=== PATIENT | male | born 1945 | race Caucasian/White ===

== ENCOUNTER → 2017-07-14 08:40 | Outpatient (CLI) | payer OTHER, MEDICARE, SELFPAY ==
[2017-06-29 14:51] VITALS: BP 124/86; BMI 29.2
== END ==
PROVIDERS: Visit Provider Nurse Practitioner Family
DX: I25.810 Atherosclerosis of coronary artery bypass graft(s) without angina pectoris (principal); Q21.1 Atrial septal defect; R06.02 Shortness of breath; R53.83 Other fatigue; I10 Essential (primary) hypertension
CPT/HCPCS: 93306; A4216

== ENCOUNTER → 2018-04-10 05:59 | Outpatient (CLI) | payer OTHER, MEDICARE, SELFPAY ==
[2017-06-29 14:51] VITALS: BMI 29.2
[2018-04-10 07:46] LABS: AST(SGOT) 23 U/L (15-37); Alanine Aminotransfer ALT/SGPT 31 U/L (16-61); Albumin, Serum 3.4 g/dL (3.2-5.0); Alkaline Phosphatase 73 U/L (45-117); Bilirubin, Direct 0.16 mg/dL (0.00-0.30); Cholesterol 198 mg/dL (200); Globulin 3.6 g/dL (2.2-4.2); High Density Lipoprotein 48 mg/dL; Triglycerides 95 mg/dL; Very Low Density Lipoprotein 19 mg/dL (5-40)
== END ==
PROVIDERS: Referring Provider Physician Assistant Medical; Visit Provider Physician Assistant Medical
DX: I10 Essential (primary) hypertension (principal); Z95.5 Presence of coronary angioplasty implant and graft; E78.5 Hyperlipidemia, unspecified
CPT/HCPCS: 36415; 80061; 80076

== ENCOUNTER → 2019-01-30 08:22 | Outpatient (CLI) | payer OTHER, MEDICARE, SELFPAY ==
[2018-04-11 14:32] VITALS: BMI 29.3
[2019-01-30 10:22] LABS: Anion Gap 3 (5-15); BUN 20 mg/dL (7-18); BUN/Creat Ratio 15.5 RATIO (10-20); Calcium,Total 8.9 mg/dL (8.5-10.1); Chloride 108 mmol/L (98-107); Creatinine, Serum 1.29 mg/dL (0.70-1.30); EST Glomerular Filtration Rate 58 mL/min (>60); Est Glom Filt Rate - Afr Amer 70 mL/min (>60); Glucose 90 mg/dL (74-106); Potassium 4.3 mmol/L (3.5-5.1); Sodium Level 139 mmol/L (136-145)
== END ==
DX: N28.9 Disorder of kidney and ureter, unspecified (principal); I10 Essential (primary) hypertension
CPT/HCPCS: 36415; 80048

== ENCOUNTER → 2019-03-20 10:40 | Outpatient (CLI) | payer OTHER, MEDICARE, SELFPAY ==
[2019-03-06 08:29] VITALS: BMI 31.9
--- NOTE | 2019-03-20 10:41 | ECHOD_ITS ---
Reason For Study: DYSPNEA/SOB Procedure This was a 2D Doppler, Color Flow transthoracic echocardiogram. The study was technically difficult. Exam performed in department. Left Ventricle Normal LV size. Mild segmental systolic dysfunction (see wall motion). The estimated ejection fraction is 45 %. Posterior-Basal: Hypokinetic. Infero-Basal: Hypokinetic. Mid-Lateral : Hypokinetic. Mid-Posterior: Hypokinetic. Mid-Inferior: Hypokinetic. Inferior [place] : Hypokinetic. Right Ventricle Normal RV size. Normal systolic function. Atria Normal left atrium. Normal right atrium. No doppler evidence for ASD. Mitral Valve There is no mitral annular calcification. Normal mitral valve. Trivial mitral valve insufficiency. Tricuspid Valve Normal tricuspid valve. Trivial tricuspid valve insufficiency. Unable to estimate RV systolic pressure/pulmonary artery pressure due to technically difficult study. Aortic Valve Trisinus/trileaflet aortic valve. Mild focal aortic valve calcification. Pulmonic Valve The pulmonic valve is not well visualized. Trivial pulmonic valve insufficiency. Great Vessels Normal sized aortic root. Pericardium/Pleural No pericardial effusion. MMode/2D Measurements & Calculations LVIDd: 5.7 cm IVSd: 1.1 cm Ao root diam: 3.6 cm LVIDs: 4.5 cm LVPWd: 0.96 cm RVDd: 4.0 cm FS: 20.7 % LAV(MOD-bp): 35.7 ml LVAd ap4: 44.0 cm2 SV(MOD-sp4): 76.8 ml LAV(MOD-bp) Indexed: 17.5 ml/m2 EDV(MOD-sp4): 177.3 ml LAV(MOD-sp2): 45.2 ml EDV(sp4-el): 186.4 ml LAV(MOD-sp4): 22.3 ml LVAs ap4: 31.1 cm2 ESV(MOD-sp4): 100.5 ml ESV(sp4-el): 104.1 ml EF(MOD-sp4): 43.3 % EF(sp4-el): 44.2 % SV(sp4-el): 82.3 ml LA A4 area: 10.7 cm2 LA dimension(2D): 4.4 cm RA A4 area: 13.6 cm2 Time Measurements MV dec time: 0.22 sec Doppler Measurements & Calculations MV E max roger: 65.3 cm/sec Lat Peak E' Roger: 5.4 cm/sec Med Peak E' Roger: 5.4 cm/sec MV A max roger: 60.0 cm/sec E/E' lat: 12.1 E/E' med: 12.1 MV E/A: 1.1 Ao V2 max: 135.2 cm/sec LV V1 max: 95.6 cm/sec PA V2 max: 114.0 cm/sec Ao max P.3 mmHg LV V1 max P.7 mmHg Interpretation Summary The study was technically difficult. Mild segmental systolic dysfunction (see wall motion). The estimated ejection fraction is 45 %. Trivial mitral valve insufficiency. Trivial tricuspid valve insufficiency. Mild focal aortic valve calcification. Trivial pulmonic valve insufficiency. Unable to estimate RV systolic pressure/pulmonary artery pressure due to technically difficult study. Transmitral diastolic flow velocities suggest diastolic dysfunction (pseudonormal pattern). 2D echocardiographic images c/w an ASD closure device. Ordering Physician: Juanito Cope/Christian Alberts Referring Physician: Juanito Cope Performed By: Soni Atkinson, ALL
== END ==
PROVIDERS: Referring Provider Nurse Practitioner Family; Visit Provider Nurse Practitioner Family
DX: I25.810 Atherosclerosis of coronary artery bypass graft(s) without angina pectoris (principal); Q21.1 Atrial septal defect; R06.02 Shortness of breath; R07.9 Chest pain, unspecified; Z95.5 Presence of coronary angioplasty implant and graft
CPT/HCPCS: 93306

== ENCOUNTER 2019-03-26 08:39 | Day surgery (SDC) | payer OTHER, MEDICARE, SELFPAY ==
[2019-03-06 08:29] VITALS: BMI 31.9
--- NOTE | 2019-03-15 08:22 | RAD_ITS ---
STUDY: X-RAY CHEST REASON FOR EXAM: Male, 73 years old. Preop, on exertion TECHNIQUE: PA and lateral views of the chest. COMPARISON: Prior study of 04/07/2014 FINDINGS: The lungs are clear and expanded. There is no demonstrated pleural abnormality. Normal size heart. Status post anatomy changes are present. Normal mediastinum and saulo. Normal visualized pulmonary arteries. Normal visualized aortic arch and descending thoracic aorta. Normal visualized thoracic spine. Normal visualized ribs, clavicles, and shoulders. There is no demonstrated abnormality of the visualized soft tissue structures of the upper abdomen. RAD/Chest PA and Lateral IMPRESSION: Status post sternotomy. No acute cardiopulmonary disease process is seen. Chest findings are stable in the interval. Electronically Signed: Marshall Morel MD at 23:12 EDT , Service support ,
[2019-03-15 08:26] LABS: Absolute Lymphocyte Count 0.98 X10^3/uL (0.83-4.51); Absolute Neutrophil Count 5.9 X10^3/uL (2.0-7.7); Basophil# 0.02 X10^3/uL; Basophil% 0.3 % (0-1); Eosinophil# 0.09 X10^3/uL; Eosinophils% 1.1 % (0-5); Hematocrit 45.2 % (40-54); Hemoglobin 14.8 g/dL (13.0-16.5); Lymphocyte # 0.98 X10^3/ul (4.0); Lymphocyte % 12.3 % (19-41); Mean Corp Hgb Conc 32.7 g/dL (32-36); Mean Corpuscular Hgb 33.1 pg (27.0-32.0); Mean Corpuscular Volume 101.1 fL (80-94); Mean Platelet Vol. 10.1 fl (6.2-12.0); Monocyte# 0.95 X10^3/uL; Monocyte% 11.9 % (0-10); NRBC Flagged by Analyzer 0 % (0-5); Neutrophil # 5.88 X10^3/uL (2.7-7.7); Neutrophil % 73.5 % (47-70); Platelet Count 272 K/mm3 (150-450); RBC Distribution Width CV 11.6 % (11.6-14.6); RBC Distribution Width SD 43.1 fl (35.1-43.9); Red Blood Count 4.47 M/mm3 (4.6-6.2)
[2019-03-15 08:32] LABS: Prothrombin Time (Protime)PT. 13.3 SECONDS (11.7-14.9)
[2019-03-15 08:33] LABS: Partial Thromboplast Time 27.9 Seconds (24.1-36.2)
[2019-03-15 08:50] LABS: Anion Gap 5 (5-15); BUN 17 mg/dL (7-18); BUN/Creat Ratio 12.9 RATIO (10-20); Chloride 102 mmol/L (98-107); Creatinine, Serum 1.32 mg/dL (0.70-1.30); EST Glomerular Filtration Rate 56 mL/min (>60); Est Glom Filt Rate - Afr Amer 68 mL/min (>60); Glucose 96 mg/dL (74-106); Potassium 4.1 mmol/L (3.5-5.1); Sodium Level 138 mmol/L (136-145)
[2019-03-25 09:59] VITALS: BMI 31.9
[2019-03-26] VITALS (23 sets, daily range): BP systolic 112–165; BP diastolic 62–113; PULSE 50–69; RESP 12–19; TEMP 36.3–36.5; O2SAT 94–99; BMI 31.9
--- NOTE | 2019-03-26 10:03 | PCM.HP.BLA ---
Problem List (1) CAD in [place] artery Status: Chronic (2) History of coronary artery stent placement Status: Chronic (3) Aortocoronary bypass status Status: Chronic Comment: X 4 LIANG to LAD sequentially, 07/31/2003 (4) Hyperlipidemia Status: Chronic Qualifiers: (5) Essential (primary) hypertension Status: Chronic (6) Shortness of breath Status: Acute History and Physical Date of Admission: 03/26/19 [facility] [address] [place] [address] OFFICE VISIT Date of Service: 03/06/19 MR#: [id number] Acct: [id number] Name: NICOLLE TREADWELL Rep #: [id number] : 1945 Provider: GEOVANNA Cope Age/Sex: 73/M Location: [facility] Status: Signed HPI HPI History of Present Illness Details: NICOLLE TREADWELL, is a 73 M who presents to the office today for a cardiovascular outpatient follow-up. Patient has history of coronary artery disease status post CABG with LIANG to LAD sequentially, SVG to high lateral LCX branch, and RCA in 2003 and subsequent PCI with MARY to mid LCX, ostial OM, and left main in 2013, ASD status post closure in 2003, hypertension, and hyperlipidemia. Pt. denies chest, arm, jaw, or neck discomfort. He states prior to CABG he noted fatigue. His exercise tolerance is stable. He tries to swim 3 miles a week. Pt. denies symptoms of palpitations, lightheadedness, dizziness, near syncope, or syncopal episodes. Pt. denies edema or claudication issues. Pt. denies orthopnea, PND, fever, chills, blood in urine, blood in stool, or myalgia. He states SOB with walking, but denies SOB when swimming labs. He states his SOB occurs quickly when walking. This improves with rest. He states his activity level is decreasing. He states chest discomfort that radiates to bilateral upper back region over the last few months. He states he had one day recently it was more intense and considered ER evaluation. This improved in about 40 minutes. He continues with arthritis issues. Intake Vital Signs 03/06/19 Blood Pressure 130/80 H 03/06/19 Blood Pressure Location Lt brachial 03/06/19 Blood Pressure Position Sitting 10/16/19 Height 5 ft 8 in 03/06/19 Weight: 210 lb 03/06/19 Body Mass Index (BMI) 31.9 03/06/19 Blood Pressure 160/98 H 03/06/19 Blood Pressure Location Lt brachial 03/06/19 Blood Pressure Position Sitting 03/06/19 Respiratory Rate 18 03/06/19 Pulse Rate 71 03/06/19 Pulse Source Monitor 03/06/19 Pulse Ox 94 Intake Visit Reasons: discuss SOB [place] Required: No Is patient in pain?: No Allergies Penicillins [PCN] Allergy (Mild, Verified 03/06/19 08:29) Rash clopidogrel [From Plavix] Adverse Reaction (Intermediate, Verified 03/06/19 08:29) Burning sensation in arms and chest Medications nitroglycerin 0.4 mg sublingual tablet 0.4 mg SUBLINGUAL Q5M PRN 06/21/17 [History Confirmed 03/06/19] garlic 1,000 mg capsule 1,000 mg PO DAILY PRN cap 03/06/19 [History Confirmed 03/06/19] [facility] Medical History (Updated 03/06/19 @ 09:45 by GEOVANNA Bird) Essential (primary) hypertension (Acute) Atherosclerosis of coronary artery bypass graft of [place] heart without angina pectoris (Chronic) Cerebrovascular accident (Acute) Acute myocardial infarction (Acute) Hyperlipidemia (Chronic) Atrial septal defect (Chronic) Premature ventricular complex (Chronic) Surgical History (Updated 03/06/19 @ 09:45 by GEOVANNA Bird) History of coronary artery stent placement (Chronic) Aortocoronary bypass status (Acute) Social History (Updated 03/07/19 @ 07:19 by GEOVANNA Bird) Smoking Status: Former smoker ROS Const Const: Positive for fatigue; negative for weakness, body ache, fever(s) or chills ENT ENT: Negative for dizziness Cardio Chest Pain: Yes Palpitations: No Edema: None Muscle aches with walking: None Resp Respiratory: Positive for SOB with activity; negative for SOB at rest, SOB orthopnea\SOB lying down or paroxysmal nocturnal dyspnea GI GI: Negative nausea, vomiting blood/hematemesis, bright, red blood in stools or black,tarry stools : Negative for hematuria or frequent nighttime urination/ nocturia Musc Musc: Positive for muscle aches/ myalgia (back pain) Skin Skin: Negative non-healing lesions or rash Neuro Neuro: Negative for dizziness, lightheadedness, near syncope, syncope, orthostatic symptoms or weakness Endo Endo: Positive for fatigue Allergy Allergy/Immunology: Negative for rash Cardiology Exam Const Appearance: cooperative, healthy appearing, comfortable and no acute distress Nutritional Appearance: well nourished and obese Orientation: alert, awake and oriented x3 Head Head: normal to inspection Ears: hearing grossly normal bilaterally Nose: external nose normal Face and Sinus: face symmetric Mouth: oral mucosae normal Eyes General: appearance normal, both eyes and all related structures Eyelids: eyelids normal EOM: EOM intact bilaterally Neck Neck: normal visual inspection and no JVD Carotids: normal carotid upstroke Chest Chest inspection: normal inspection of the chest, symmetric chest movement and normal respiratory effort; negative cough Auscultation: Bilateral: Clear to Auscultation Cardio Rate: regular rate Rhythm: regular rhythm Heart sounds: S1 normal and S2 normal; negative rub, gallop or murmur GI GI: normal to inspection and obese Neuro General: alert, awake, oriented x3 and CN's II-XI intact bilaterally Skin Skin: no rashes or lesions noted Extremities Pulses: Normal: Right Posterior Tibial Pulse, Left Posterior Tibial Pulse, Right Radial Pulse, Left Radial Pulse Lower Extremity Edema: None: Bilateral Psych Psychological: normal affect Assessment & Plan 1. Atherosclerosis of coronary artery bypass graft of [place] heart without angina pectoris I25.810 Plan He underwent stress testing in August 2016 that was negative for ischemia. His last echocardiogram in June 2017 showed ejection fraction of 55%. Patient does express symptoms concerning for progressive coronary artery disease. He does have a extensive history that includes stenting and bypass surgery along with strong family history. He will undergo repeat echocardiogram and stress testing or heart catheterization for further evaluation. Based on results, further recommendation will be made. Patient states that he does not want to take any medications due to side effects and making him feel bad. He did receive extensive education regarding the importance of cardiac medications given his extensive cardiac history. He declines starting medications at this time. Exercise and diet modifications were extensively stressed in regards to his overall health. Orders Orders: Echo Complete 03/06/19 Nuclear Stress Test - Tread[facility] 03/06/19 2. Aortocoronary bypass status Z95.1 X 4 LIANG to LAD sequentially, 07/31/2003 Plan As noted above, he will proceed with stress testing to evaluate further. 3. History of coronary artery stent placement Z95.5 Plan He will continue current treatment plan as outlined above. Orders Orders: Echo Complete 03/06/19 Nuclear Stress Test - Tread[facility] 03/06/19 4. Shortness of breath R06.02 Plan He does acknowledge shortness of breath on exertion that has limited his overall activity. He does acknowledge reduced functional capacity. He will undergo a repeat echocardiogram to evaluate for changes. His previous one in June 2017 showed ejection fraction of 55% trivial valvular disease, and a negative bubble contrast study for right to left intra-atrial shunt. Based on results, further recommendation will be made. Orders Orders: Echo Complete 03/06/19 Nuclear Stress Test - Treadmil 03/06/19 5. Atrial septal defect Q21.1 Status post repair Plan This too will be reassessed during an upcoming echocardiogram. As noted above his echocardiogram in June 2017 was negative for right to left interatrial shunt via bubble contrast study. Orders Orders: Echo Complete 03/06/19 Nuclear Stress Test - Tread[facility] 03/06/19 6. Essential (primary) hypertension I10 Plan His blood pressure initially was elevated. Upon recheck it was much improved. It was recommended due to his cardiac history that he begin medications given that his blood pressure is well controlled. He declines at this time. 7. Mixed hyperlipidemia E78.2 Plan He is not on cholesterol-lowering medication. His last lipid panel March 2018 showed cholesterol: 198, HDL: 40, LDL: 131, and triglycerides: 95. He was asked to consider statin medication. He declined at this time. Plan Detail Other Orders Orders: Echo Complete 03/06/19 R07.9 Nuclear Stress Test - Tread[facility] 03/06/19 R07.9 Other Medications New: garlic 1,000 mg PO DAILY PRN Additional Comments Thank you for allowing us to participate in the patients plan of care, if you have any questions please do not hesitate to call. This note was generated using a voice recognition system and there may be incorrect words, spelling or punctuation that were not noted when reviewing the office note prior to saving. Coding Level of Care Code Off vis,est,level 4 Diagnoses Atherosclerosis of coronary artery bypass graft of [place] heart without angina pectoris I25.810 Aortocoronary bypass status Z95.1 History of coronary artery stent placement Z95.5 Shortness of breath R06.02 Atrial septal defect Q21.1 Essential (primary) hypertension I10 Mixed hyperlipidemia E78.2 ??Hyperlipidemia type: mixed hyperlipidemia Coding Level of Care Code Off vis,est,level 4 Diagnoses Atherosclerosis of coronary artery bypass graft of [place] heart without angina pectoris I25.810 Aortocoronary bypass status Z95.1 History of coronary artery stent placement Z95.5 Shortness of breath R06.02 Atrial septal defect Q21.1 Essential (primary) hypertension I10 Mixed hyperlipidemia E78.2 ??Hyperlipidemia type: mixed hyperlipidemia Supplemental Info Supplemental Information Echocardiogram from 07/14/2017: Interpretation summary Segmental dysfunction with preserved ejection fraction (see wall motion intensity. The estimate ejection fraction is 55%. Postoperative septal motion. Trivial mitral valve insufficiency. Trivial tricuspid valve insufficiency. Mild diffuse aortic valve thickening. Trivial aortic valve insufficiency. Trivial pulmonic valve insufficiency. 2D echocardiographic images consistent with an ASD closure device. Bubble contrast study negative for right to left intra-atrial shunt. Trans-mitral diastolic flow velocities suggest diastolic dysfunction (pseudo-normal pattern). Stress test from 09/06/2016: Impressions: Normal stress myocardial perfusion imaging. Scar inferolateral segments with small area of reversibility to lateral wall. LVEF is normal. Labs LDL Cholesterol 131 mg/dL (0-130) H 04/10/18 HDL Cholesterol 48 mg/dL (40-) 04/10/18 Triglycerides 95 mg/dL (-199) 04/10/18 VLDL Cholesterol 19 mg/dL (5-40) 04/10/18 03/07/19 0719 <Electronically signed by Juanito AUSTIN> Date Juanito AUSTIN Cosigner Signature: Date (if applicable) CC: I have re-examined the patient. There are no clinical changes since date of exam.
--- NOTE | 2019-03-26 12:00 | EKG12_ITS ---
Test Reason : POST STENT Blood Pressure : / mmHG Vent. Rate : 061 BPM Atrial Rate : 061 BPM P-R Int : 202 ms QRS Dur : 108 ms QT Int : 428 ms P-R-T Axes : 025 -28 079 degrees QTc Int : 430 ms Normal sinus rhythm Leftward axis Poor R wave progression Confirmed by MIRTA OKEEFE, CHRISTIAN ([id number]), editor continuity and script SUREKHA GUTIERREZ ([id number]) on 04/09/2019 2:05:35 PM Referred By: Christian Kirby Confirmed By:CHRISTIAN KIRBY MD
[2019-03-26 12:16] LABS: ACT Activated Clotting Time 213 sec (74-137)
--- NOTE | 2019-03-26 13:05 | CL.I_ITS ---
Patient Name: NICOLLE TREADWELL Study Date: 03/26/2019 Performing: Tennille Carrion MD Ht: 68 inches 173 cm : 1945 Wt: 209.7 lbs 95 kg Age: 73 Gender: male BSA: 2.09 PROCEDURE(S) PERFORMED [id number] W OR WO PTCA, SINGLE CORONARY ARTERY CLINICAL PROFILE AND CO-MORBIDITIES Indications: Suspected CAD Heart Failure: None Stress/Imaging Stress/Image Study Performed: No Angina Classification Anginal Classification w/in 2 Weeks: CCS III CAD Presentations: Other: shortness of breath / fatigue: angina pectoris equivalent CONCLUSIONS Successful PCI with Drug eluting stent and PTCA to the ISR of left main. RECOMMENDATIONS ASA Indefinijamal Laird for at least 12 months Follow up with Dr. Alberts DESCRIPTION OF PROCEDURE The patient arrived to the procedure lab. The risks and benefits of the procedure as well as a full d escription of our services here and current unavailability of surgical backup were fully explained to the patient and/or their significant other prior to the catheterization. The Timeout was completed, verifying the correct patient and procedure. The patient's procedural site was prepped and draped in the usual fashion. Local anesthetic was given subcutaneously to right groin region with Lidocaine 2% Using a modified Seldinger technique,arterial access was obtained via the right femoral artery, a 4Fr sheath was inserted Left Coronary Artery selective angiography was performed in multiple views using a 4 Fr. JL5 catheter. Right Coronary Artery selective angiography was then performed in multiple vie ws using a 4 Fr. 3DRC catheter. Saphenous Vein graft to the Circumflex selective angiography was perf ormed in multiple views using a 4 Fr. JR4 catheter. Saphenous Vein graft to the RCA selective angiography was performed in multiple views using a 4 Fr. JR4 catheter. Left internal mamma ry artery graft to the LAD selective angiography was performed in multiple views using a 4 Fr. JR4 ca theter. Saphenous Vein graft to the RCA selective angiography was performed in multiple views using a 4 Fr. RCB catheter. LV to AO pullback pressures were then recorded. Left internal mammary artery gra ft to the LAD selective angiography was performed in multiple views using a 4 Fr. IM catheter. Arterial sheath was exchanged for a 6 Fr Sheath. XB 3.5 Guide catheter was inserted and engaged i nto the LCA. BMw [place] Guide wire was advanced to the Circumflex. Emerge 3.0 x 12 Balloon cathete r was inserted. Balloon catheter was advanced across lesion in the Left Main mid PTCA balloon inflat ed at 10 atms for 15 secs. Elunir 3.5 x 15 Drug Eluting stent was inserted. Drug Eluting stent was ad vanced across the lesion in the Left Main mid Angiogram performed post stent deployment. The arter ial sheath was sutured in place and capped INTERVENTION INFORMATION LESION SITE: Left Main (Mid) Lesion Complexity: High/C, chronic total occlusion: No, lesion at bifurcation: Yes, thrombus present: No, lesion length: 12 mm, culprit lesion: Yes, Previously treated lesion: Yes, Timeframe of previous treatment: Time unknown, Previously treated with a stent: Yes Stent Type: with MARY, In-stent Thrombo sis: No, In-stent restenosis: Yes Pre Stenosis: 90 % Pre intervention KEREN flow: 3 PROCEDURE: Drug Eluting Stent with pre dilatation. Post Stenosis: 0 % Post intervention KEREN flow: 3 Lesion Devices: Cardinal 6 Fr XB3.5 100cm Guide Catheter Vázquez .014 [employer] [place] Straight 190cm Ronni Sci EMERGE MR 3.00x12 BALLOON Cardinal Elunir MARY RX 3.5x15 COMPLICATIONS No Complications PROCEDURE MEDICATIONS Versed 1 mg IV Oxygen: 2 L/min via nasal cannula Heparin 7000 unit(s) IV 03/26/2019 11:34:46 SUMMARY OF HEMODYNAMIC DATA Time AIR REST ECG 09:04:27 AO 156/86 (116) SA 10:26:14 LV 147/-6, 21 10:48:51 LV 145/-6, 14 10:48:57 LVp 165/-7, 17 10:51:08 AOp 156/71 (103) 10:51:13 Signed By Tennille Carrion MD On 03/26/2019 13:04:35 Tennille Carrion MD
[2019-03-26 13:45] LABS: ACT Activated Clotting Time 175 sec (74-137)
--- NOTE | 2019-03-26 14:13 | CRPHASE1_ITS ---
Patient Communication Former Patient:: Phase II PHII Cardiac Rehab Discussed with Patient:: Yes Guide to Cardiac Rehab Given to Patient:: Yes Cardiac Rehab Facility Choice List Given to Patient:: Yes Choice Program [facility] CR PHII:: Communication Given to CR, Refer to [facility] Beer Maker:: Clementine Carrion PCP:: DR VELIZ Refer Phase II Cardiac Rehab:: Yes Risk Factors/Lifestyle Smoking Status: Former smoker Hx Hypertension: Yes Hx Diabetes Mellitus Type 1: No Hx Diabetes Mellitus Type 2: No Hx Dyslipidemia: Yes Hx Obesity: Yes Height: 5 ft 8 in Weight:: 210 lb BMI: 31.9 Issues Affecting Care:: None - PT WAS A FORMER PHASE II PATIENT Medical/Surgical History SD:: Yes CAD:: Yes COPD:: No Asthma:: No Diabetes:: No Hypertension:: Yes Dyslipidemia:: Yes GERD:: Yes Discharge/Home/Social Eval Discharge Disposition: Home - FORMER PHASE II PT Cardiac Rehabilitation Info Cardiac Rehabilitation Program Information: Cardiac Rehabilitation is important for patients like you who are recovering from a heart problem. Cardiac rehabilitation programs are recognized as integral to the continued care of the patient with coronary heart disease. The cardiac rehabilitation program is designed to optimize a patient's physical, psychological, and social functioning. Health career consultant work in cardiac rehabilitation programs and assist you with getting the treatments you need to get stronger and healthier - like exercise, healthy eating habits, and medications. Cardiac rehabilitation has been show to help people with heart problems live longer and have better life enjoyment than people who do not go to cardiac rehabilitation. Please contact the Cardiac Rehabilitation Program at [facility] at in two weeks if you have not heard from them.
--- NOTE | 2019-03-26 14:16 | CRPH1.INSTRU ---
General Education CAD and cardiac anatomy and function:: Not instructed Explanation of diagnoses and procedures:: Not instructed Sign/Symptoms of NE:: Not instructed Antiplatelet therapy: Patient communicates acknowledgment, Needs reinforcement Emergency procedures and activation of EMS: Not instructed Compliance of all prescribed medications: Patient communicates acknowledgment, Needs reinforcement - FORMER PHASE II PT Smoking Nicotine/Smoking Response Code:: Not instructed Dyslipidemia Dyslipidemia Response Code:: Not instructed Overweight/Obesity Patient Overweight/Obesity Risk Factors Are:: Obesity - > or = 30 Overweight/Obesity:: Not instructed Hypertension Hypertension:: Not instructed Heart Disease Heart Disease Response Code:: Not instructed Diabetes Diabetes:: Not instructed Metabolic Syndrome Metabolic Syndrome Response Code:: Not instructed Sedentary Sedentary Response Code:: Not instructed Stress Stress Response Code:: Not instructed - FORMER PHASE II PT
[2019-03-26 14:36] LABS: ACT Activated Clotting Time 158 sec (74-137)
[2019-03-26] MEDS: 0.9% Saline Lock 10 ML Syringe IV (14:36)
--- NOTE | 2019-03-26 15:39 | CL.D_ITS ---
Patient Name: NICOLLE TREADWELL Study Date: 03/26/2019 Performing: Christian Alberts MD Ht: 68.11 inches 173 cm : 1945 Wt: 209.44 lbs 95 kg Age: 73 Gender: male BSA: 2.09 PROCEDURE(S) PERFORMED [id number]/COR/CABG AE95-RSP W OR WO PTCA, SINGLE CORONARY ARTERY CLINICAL PROFILE AND INDICATIONS Indications: Suspected CAD Heart Failure: None Stress/Imaging Stress/Image Study Performed: No Angina Classification Anginal Classification w/in 2 Weeks: CCS III CAD Presentations: Other: shortness of breath / fatigue: angina pectoris equivalent CONCLUSIONS Elevated Left Ventricular End Diastolic Pressure [place] Multivessel CAD LIANG to LAD: patent SVG to OM1: occluded (chronic) SVG to RCA: patent Left to Left and Right to Left Collateral Flow RECOMMENDATIONS Risk factor modification Medical therapy Referred for immediate PCI DESCRIPTION OF PROCEDURE The patient arrived to the procedure lab. The risks and benefits of the procedure as well as a full d escription of our services here and current unavailability of surgical backup were fully explained to the patient and/or their significant other prior to the catheterization. The Timeout was completed, verifying the correct patient and procedure. The patient's procedural site was prepped and draped in the usual fashion. Local anesthetic was given subcutaneously to right groin region with Lidocaine 2%. Using a modified Seldinger technique, arterial access was obtained via the right femoral artery, a 4 Fr sheath was inserted Left Coronary Artery selective angiography was performed in multiple views us ing a 4 Fr. JL5 catheter. Right Coronary Artery selective angiography was then performed in multiple views using a 4 Fr. 3DRC catheter. Saphenous Vein graft to the Circumflex selective angiography was p erformed in multiple views using a 4 Fr. JR4 catheter. Saphenous Vein graft to the RCA selective angiography was performed in multiple views using a 4 Fr. JR4 catheter. Left internal mamma ry artery graft to the LAD selective angiography was performed in multiple views using a 4 Fr. JR4 ca theter. Saphenous Vein graft to the RCA selective angiography was performed in multiple views using a 4 Fr. RCB catheter. LV to AO pullback pressures were then recorded. Left internal mammary artery gra ft to the LAD selective angiography was performed in multiple views using a 4 Fr. IM catheter.The art erial sheath was sutured in place and capped CORONARY ANGIOGRAPHY DOMINANCE: Right Dominant LEFT HEART ASSESSMENT Left Ventricular Ejection Fraction: Not assessed Elevated Left Ventricular End Diastolic Pressure LVEDP: 14 mmHg LEFT MAIN: Previously placed stent is patent with distal eccentric 85 % instent restenosis LEFT ANTERIOR DESCENDING ARTERY: DISTAL LAD: Mild luminal irregularities CIRCUMFLEX ARTERY: MID CIRC: 25 % Stenosis OM 1: Mid - 25 % Stenosis RIGHT CORONARY ARTERY: PROX RCA: is occluded RT PDA: Proximal - 50 % Stenosis GRAFTS: LIANG graft to the Mid LAD is patent Saphenous Vein graft to the 1st OM is totally occluded Saphenous Vein graft to the RCA is patent COLLATERAL FLOW: Collateral flow from Left to Left Collateral flow from Right to Left COMPLICATIONS No Complications PROCEDURE MEDICATIONS Versed 1 mg IV Oxygen: 2 L/min via nasal cannula Heparin 7000 unit(s) IV 03/26/2019 11:34:46 SUMMARY OF HEMODYNAMIC DATA Time AIR REST ECG 09:04:27 AO 156/86 (116) SA 10:26:14 LV 147/-6, 21 10:48:51 LV 145/-6, 14 10:48:57 LVp 165/-7, 17 10:51:08 AOp 156/71 (103) 10:51:13 Signed By Christian Alberts MD On 03/26/2019 3:38:17 PM Christian Alberts MD
--- NOTE | 2019-03-26 16:12 | CHAPLAIN ---
Type of Pastoral Visit _x__ Initial Visit ___ Follow-up Visit ___ On-call Visit ___ General Patient Visit ___ Spiritual Assessment ___ Family Conference ___ Bereavement ___ Rapid Response ___ Code Blue ___ Other (describe below) Pastoral Care Referral From _x__ Patient ___ Family ___ Nurse ___ Physician ___ Firearms Instructor ___ Numerical Control Machine Operator ___ Other (describe below) Sacrament/Intervention _x__ Active listening ___ Anointing ___ Judaism ___ Bereavement ___ Communion _x__ Shefali exploration ___ _x__ Life review _x__ Prayer ___ Reconciliation ___ Sacrament of Sick _x__ Supportive presence ___ Wedding ___ Other (describe below) Pastoral Comments
--- NOTE | 2019-03-26 19:10 | NURSING ---
Pt's groin inspected, pt denies pain,numb/ting, and SOB. Gripper socks placed on, pt assisted to sitting at bedside;no c/o dizziness. Pt assisted to stand and pivot into chair. Groin site remains intact s/p transfer. monitor wires placed out of way, call light within reach; pt denies any further needs at this time.
[2019-03-26] MEDS: TICAGRELOR 90 MG TABLET PO (21:22)
--- NOTE | 2019-03-26 21:29 | NURSING ---
Pt ambulated to bathroom and back to bed w/out difficulty;slight wheezing w/exertion, but denies SOB. Gait slow and steady.
[2019-03-27] VITALS (17 sets, daily range): BP systolic 100–174; BP diastolic 47–94; PULSE 54–74; RESP 13–22; TEMP 36.6–36.7; O2SAT 94–99
[2019-03-27 03:55] LABS: Hematocrit 41.7 % (40-54); Hemoglobin 13.9 g/dL (13.0-16.5); Mean Corp Hgb Conc 33.3 g/dL (32-36); Mean Corpuscular Hgb 33.3 pg (27.0-32.0); Mean Corpuscular Volume 99.8 fL (80-94); Mean Platelet Vol. 9.9 fl (6.2-12.0); Platelet Count 219 K/mm3 (150-450); RBC Distribution Width CV 11.8 % (11.6-14.6); RBC Distribution Width SD 43.1 fl (35.1-43.9); Red Blood Count 4.18 M/mm3 (4.6-6.2)
[2019-03-27 04:15] LABS: AST(SGOT) 23 U/L (15-37); Alanine Aminotransfer ALT/SGPT 21 U/L (16-61); Albumin, Serum 3.2 g/dL (3.2-5.0); Alkaline Phosphatase 62 U/L (45-117); Anion Gap 8 (5-15); BUN 16 mg/dL (7-18); BUN/Creat Ratio 14.7 RATIO (10-20); Calcium,Total 8.4 mg/dL (8.5-10.1); Chloride 109 mmol/L (98-107); Creatinine, Serum 1.09 mg/dL (0.70-1.30); EST Glomerular Filtration Rate 70 mL/min (>60); Est Glom Filt Rate - Afr Amer 85 mL/min (>60); Estimated Creatinine Clearance 57.52 ml/min; Globulin 3.2 g/dL (2.2-4.2); Glucose 105 mg/dL (74-106); Potassium 4.1 mmol/L (3.5-5.1); Protein, Total 6.4 g/dL (6.4-8.2); Sodium Level 141 mmol/L (136-145)
[2019-03-27] MEDS: TICAGRELOR 90 MG TABLET PO (08:44)
[2019-03-27] MEDS: Aspirin E.C. 81 MG Tablet PO (08:44)
--- NOTE | 2019-03-27 10:00 | EKG12_ITS ---
Test Reason : AM EKG Blood Pressure : / mmHG Vent. Rate : 057 BPM Atrial Rate : 057 BPM P-R Int : 196 ms QRS Dur : 102 ms QT Int : 438 ms P-R-T Axes : 012 -32 088 degrees QTc Int : 426 ms Sinus bradycardia with Premature atrial complexes Left axis deviation Poor R wave progression Abnormal ECG Confirmed by MIRTA OKEEFE, CHRISTIAN ([id number]), acquisitions editor SUREKHA GUTIERREZ ([id number] on 04/09/2019 2:04:40 PM Referred By: Christian Kirby Confirmed By:CHRISTIAN KIRBY MD
--- NOTE | 2019-03-27 10:36 | DCINST_ITS ---
<Juanito Cope - Last Filed: 03/27/19 10:36> Discharge Diet: Low fat/ Low Cholesterol Discharge Activity: Return to Normal Activity May shower in (days): 1 - No tub baths for 5 days May resume sexual activity in: 1-2 weeks Lifting Restrictions: Do not lift anything greater than 10 pounds for 3 days Call your doctor if your incision/area has: Continuous Slow Oozing, Sudden Increased Bleeding, Increased Pain/ Swelling, Increased Redness, Foul Smelling Discharge, Swelling at the incision site Call your doctor if you observe: Fever of 101 or Higher, Shortness of breath, Chest pain Remove Dressing in (days):: 1 Cleanse incision/area with: Soap & Water Additional Instructions: You continue with aspirin and Brilinta therapy. If anyone asked you to stop this, please call the [facility]. Ideally given your history of coronary artery disease that you should also be on such medication as beta-remberto, DILLON inhibitor/ARB, and statin medication. This will continually be assessed on an outpatient basis and please consider taking such medications. Please continue to monitor heart rate and blood pressure and depending on your blood pressure results, you may benefit will require blood pressure medication. If any questions or concerns please call the [facility]. Allergies/Adverse Reactions: Allergies Penicillins [PCN] Allergy (Mild, Verified 03/06/19 08:29) Rash clopidogrel [From Plavix] Adverse Reaction (Intermediate, Verified 03/06/19 08:29) Burning sensation in arms and chest Medications to take at Discharge nitroglycerin 0.4 mg sublingual tablet 0.4 mg SUBLINGUAL Q5M PRN 06/21/17 garlic 1,000 mg capsule 1,000 mg PO DAILY cap 03/06/19 aspirin 81 mg tablet,delayed release 81 mg PO QDAY #60 tab 03/11/19 ticagrelor 90 mg tablet 90 mg PO BID #60 tab 03/11/19 Ubidecarenone [Co Q-10] 30 mg PO DAILY 03/26/19 Orders to be completed after discharge: Phase II, Outpatient Cardiac Rehab Location: None Selected Primary Care Physician: TRISTIN PARIKH [Other] Test Results: Test results from this visit will be discussed in further detail at your follow- up appointment, if applicable. Please Follow Up With: Dr. Alberts When: 05/01/2019 at 2:30 PM Proposed Discharge Date: 03/27/19 Cardiac Rehabilitation Info Cardiac Rehabilitation Program Information: Cardiac Rehabilitation is important for patients like you who are recovering from a heart problem. Cardiac rehabilitation programs are recognized as integral to the cont inued care of the patient with coronary heart disease. The cardiac rehabilitation program is designed to optimize a patient's physical, psychological, and social functioning. Health healthcare financial analyst work in cardiac rehabilitation programs and assist you with getting the treatments you need to get stronger and healthier - like exercise, healthy eating habits, and medications. Cardiac rehabilitation has been show to help people with heart problems live longer and have better life enjoyment than people who do not go to cardiac rehabilitation. Please contact the Cardiac Rehabilitation Program at [facility] at in two weeks if you have not heard from them. <Christian Alberts - Last Filed: 03/27/19 13:40> Test Results: Test results from this visit will be discussed in further detail at your follow- up appointment, if applicable. Cardiac Rehabilitation Info Cardiac Rehabilitation Program Information: Cardiac Rehabilitation is important for patients like you who are recovering from a heart problem. Cardiac rehabilitation programs are recognized as integral to the continued care of the patient with coronary heart disease. The cardiac rehabilitation program is designed to optimize a patient's physical, psychological, and social functioning. Health healthcare financial analyst work in cardiac rehabilitation programs and assist you with getting the treatments you need to get stronger and healthier - like exercise, healthy eating habits, and medications. Cardiac rehabilitation has been show to help people with heart problems live longer and have better life enjoyment than people who do not go to cardiac rehabilitation. Please contact the Cardiac Rehabilitation Program at [facility] at in two weeks if you have not heard from them.
--- NOTE | 2019-03-27 13:40 | DS.PCM_ITS ---
Discharge Date and Diagnosis Date of Admission: 03/26/19 Date of Discharge: 03/27/19 - Primary Discharge Diagnosis CAD status post PCI - Secondary Discharge Diagnosis Chronic Problems (Last Updated 04/03/18 @ 10:41 by Heather Herrera) CAD in [place] artery (Chronic) History of coronary artery stent placement (Chronic ~03/26/19) PCI/MARY of the [facility] [place] [facility] 03/26/19 Essential (primary) hypertension (Chronic) Atherosclerosis of coronary artery bypass graft of [place] heart without angina pectoris (Chronic) Aortocoronary bypass status (Chronic) X 4 LIANG to LAD sequentially, 07/31/2003 Hyperlipidemia (Chronic) Atrial septal defect (Chronic) Status post repair Premature ventricular complex (Chronic) Hospital Course and Treatment Operations: None Procedures: Cardiac catheterization, - - Cardiac percutaneous intervention Summary of Care Provided: The patient is a 73 year old with a history of CAD, CABG, PCI, status post ASD closure/PFO closure (surgical and percutaneously), who presented for concerning shortness of breath/dyspnea and fatigue for repeat evaluation in the cardiac catheterization laboratory. A cardiac catheterization was performed which demonstrated progression of underlying [place] vessel disease that required repeat PCI. The patient was monitored in the ICU overnight. He appeared to be symptomatically hemodynamically stable. It was felt he could be released home for continued outpatient follow-up and outpatient cardiac rehabilitation. The patient was counseled on appropriate medical management. He was agreeable t o taking his aspirin and antiplatelet therapy. He declined taking any other prescription medications despite a lengthy conversation with him by multiple caregivers. He was agreeable for continued outpatient follow-up. He agreed to continued outpatient cardiac rehabilitation. [] Subjective: Patient is awake and alert and in no acute distress. - Physical Exam Vitals/I&O's: Vital Signs Temp Pulse Resp BP Pulse Ox 98.1 F 63 14 162/89 H 99 03/27/19 12:00 03/27/19 12:00 03/27/19 12:00 03/27/19 12:00 03/27/19 12:00 Oxygen Delivery Method Room Air Weight: 209 lb 10.554 oz Body Mass Index (BMI) 31.9 Intake and Output for Last 24 Hours 03/25/19 03/26/19 03/27/19 23:59 23:59 23:59 Intake Total 400 / 600 920 / 920 Output Total 950 / 1350 950 / 950 Balance -550 / -750 -30 / -30 General: Alert, Oriented x3, Cooperative HEENT: Atraumatic, PERRLA Oral: Moist Mucosa Neck: Supple, No JVD Lungs: Clear to auscultation Cardiovascular: Regular rate, Normal S1, Normal S2 Abdomen: Bowel Sounds Present, Soft, Non Tender Extremities: No clubbing, No cyanosis, No edema Psych/Mental Status: Normal Affect Comment: Right femoral artery: Pulse 2+/4+: No obvious bruit: No obvious hematoma Laboratory Results 03/26/19 13:30: Activated Clotting Time 175 H 03/26/19 14:25: Activated Clotting Time 158 H 03/27/19 03:45: WBC 8.0, RBC 4.18 L, Hgb 13.9, Hct 41.7, MCV 99.8 H, MCH 33.3 H, MCHC 33.3, RDW Std Deviation 43.1, RDW Coeff of Neena 11.8, Plt Count 219, MPV 9.9 03/27/19 03:45: Sodium 141, Potassium 4.1, Chloride 109 H, Carbon Dioxide 24.0, Anion Gap 8, BUN 16, Creatinine 1.09, Estim Creat Clear Calc 57.52, Est GFR (MDRD) Af Amer 85, Est GFR (MDRD) Non-Af 70, BUN/Creatinine Ratio 14.7, Glucose 105, Calcium 8.4 L, Total Bilirubin 0.40, AST 23, ALT 21, Alkaline Phosphatase 62, Total Protein 6.4, Albumin 3.2, Globulin 3.2, Albumin/Globulin Ratio 1.0 Current Medications Aspirin (Ecotrin) 81 mg PO DAILY@0800 [facility] Last Admin: 03/27/19 08:44 Dose: 81 mg Documented by: Atropine Sulfate () 0.5 mg IV UD PRN PRN Reason: HR <50 bpm Heparin Sodium (Beef Lung) (Heparin 500 Unit/5 Ml (100/Ml)) 500 unit IV UD PRN PRN Reason: HEPARIN FLUSH Sodium Chloride () 500 ml IV BOLUS PRN PRN Reason: VASO-VAGAL PROTOCOL Sodium Chloride () 10 - 40 ml IV UD PRN PRN Reason: SALINE FLUSH Last Admin: 03/26/19 14:36 Dose: 10 ml Documented by: Ticagrelor (Brilinta) 90 mg PO BID [facility] Last Admin: 03/27/19 08:44 Dose: 90 mg Documented by: Discharge Diet: Low fat/ Low Cholesterol Discharge Activity: Return to Normal Activity May shower in (days): 1 - No tub baths for 5 days May resume sexual activity in: 1-2 weeks Call your doctor if your incision/area has: Continuous Slow Oozing, Sudden Increased Bleeding, Increased Pain/ Swelling, Increased Redness, Foul Smelling Discharge, Swelling at the incision site Call your doctor if you observe: Fever of 101 or Higher, Shortness of breath, Chest pain Remove Dressing in (days):: 1 Cleanse incision/area with: Soap & Water Home Medications: Medications to take at Discharge nitroglycerin 0.4 mg sublingual tablet 0.4 mg SUBLINGUAL Q5M PRN 06/21/17 garlic 1,000 mg capsule 1,000 mg PO DAILY cap 03/06/19 aspirin 81 mg tablet,delayed release 81 mg PO QDAY #60 tab 03/11/19 ticagrelor 90 mg tablet 90 mg PO BID #60 tab 03/11/19 Ubidecarenone [Co Q-10] 30 mg PO DAILY 03/26/19 Other Amb Orders: Phase II, Outpatient Cardiac Rehab Location: None Selected Primary Care Physician: TRISTIN PARIKH [Other] Please Follow Up With: Dr. Alberts When: 05/01/2019 at 2:30 PM Additional Instructions: You continue with aspirin and Brilinta therapy. If anyone asked you to stop this, please call the [facility]. Ideally given your history of coronary artery disease that you should also be on such medication as beta-remberto, DILLON inhibitor/ARB, and statin medication. This will continually be assessed on an outpatient basis and please consider t aking such medications. Please continue to monitor heart rate and blood pressure and depending on your blood pressure results, you may benefit will require blood pressure medication. If any questions or concerns please call the [facility]. Disposition: Home Minutes spent on discharge:: 45 Patient Condition:: Stable Medical Necessity - Tobacco Use Smoking Status: Former smoker Meaningful Use Info Meaningful Use Diagnoses (Choose all that apply): None applicable
== END 2019-03-27 14:35 | disposition home or self-care (01) ==
LOC: CLSP 08:39 → ICU 03-27 10:58
PROVIDERS: Nurse Practitioner Family; Specialist; Referring Provider Internal Medicine Cardiovascular Disease; Visit Provider Internal Medicine Cardiovascular Disease
DX: I25.810 Atherosclerosis of coronary artery bypass graft(s) without angina pectoris (principal); I10 Essential (primary) hypertension; Q21.1 Atrial septal defect; E78.2 Mixed hyperlipidemia; E66.9 Obesity, unspecified; Z68.31 Body mass index [BMI] 31.0-31.9, adult; I49.3 Ventricular premature depolarization; M19.90 Unspecified osteoarthritis, unspecified site; I25.2 Old myocardial infarction; Z86.73 Personal history of transient ischemic attack (TIA), and cerebral infarction without residual deficits; Z79.82 Long term (current) use of aspirin; Z79.899 Other long term (current) drug therapy; Z87.891 Personal history of nicotine dependence
CPT/HCPCS: 36415; 71046; 80048; 80053; 85025; 85027; 85347; 85610; 85730; 92928; 93005; 93455; 99152; 99153; J7040; Q9967; A4216; C1725; C1769; C1874; C1887; C1894; C9600

== ENCOUNTER 2019-03-31 00:10 | Inpatient (IN) | payer OTHER, MEDICARE, SELFPAY ==
[2019-03-26 12:49] VITALS: BMI 31.9
[2019-03-31] VITALS (43 sets, daily range): BP systolic 96–157; BP diastolic 56–98; PULSE 60–102; RESP 9–22; TEMP 36.6–37.1; O2SAT 93–98; BMI 32.5
--- NOTE | 2019-03-31 00:21 | HP.PCM_ITS ---
Problem List (1) STEMI (ST elevation myocardial infarction) Status: Acute (2) CAD in [place] artery Status: Chronic (3) History of coronary artery stent placement Status: Chronic Comment: PCI/MARY of the ISR of [place] 03/26/19 (4) Essential (primary) hypertension Status: Chronic (5) Atherosclerosis of coronary artery bypass graft of [place] heart without angina pectoris Status: Chronic (6) Aortocoronary bypass status Status: Chronic Comment: X 4 LIANG to LAD sequentially, 07/31/2003 (7) Abnormal electrocardiogram Status: Acute (8) Acute myocardial infarction Status: Acute Comment: Subendocardial infarction (9) Hyperlipidemia Status: Chronic Qualifiers: (10) Atrial septal defect Status: Chronic Comment: Status post repair (11) Premature ventricular complex Status: Chronic History of Present Illness Date of Admission: 03/30/19 Chief Complaint: CHEST PAIN The patient is a 73 year old with a history of former smoker; CAD S/P CABG and stents, status post ASD closure/PFO closure (surgical and percutaneously) who recently had another coronary stent placed in his left main on 03/26/2019 presenting with chest pain. His chest pain [place] a [place] but watching the football in his van. The paramedics at the football [place] who were close to him took him to the emergency department. The paramedics gave him 2 nitroglycerin tablets but the nitroglycerin tablets did not help with his pain. Majority of his pain was actually in his back. The pain also radiated to his bilateral arm. The pain w as severe and was getting progressively worse. There was no aggravating or ameliorating factors to the pain. Patient went to [facility] where it was identified the patient was having ST elevation [place]. At [facility] patient received normal saline bolus of 500 mils; he received 4000 units of heparin and he was started on nitroglycerin drip. The case was discussed with our steam plant records clerk, Dr. Barragan and patient was accepted to our Hospital ([facility]). As soon as patient arrived to the emergency department he was wheeled to the cardiac Lab by the paramedics. Patient had an immediate PCI. Per discussion with Dr. Barragan, interventionalist who did the procedure, the stent in the left main placed on 03-26-19 was occluded and it was opened up. A second stent was placed in the left main. Further patient had a stent placed in his circumflex. Also the obtuse marginal artery was ballooned up. Patient was admitted to the intensive care with a plan to keep sheath in overnight; and receive Integrilin drip for [address] Barragan heparin will be stopped and patient will receive full dose aspirin up of 324 mg in a.m. Past Medical History Past Medical History (Chronic Problems): Chronic Problems (Last Updated 04/03/18 @ 10:41 by Heather Herrera) CAD in [place] artery (Chronic) History of coronary artery stent placement (Chronic ~03/26/19) PCI/MARY of the ISR of Lt Main 03/26/19 Essential (primary) hypertension (Chronic) Atherosclerosis of coronary artery bypass graft of [place] heart without angina pectoris (Chronic) Aortocoronary bypass status (Chronic) X 4 LIANG to LAD sequentially, 07/31/2003 Hyperlipidemia (Chronic) Atrial septal defect (Chronic) Status post repair Premature ventricular complex (Chronic) Medical History: Medical History (Last Reviewed 03/31/19 @ 01:06 by Delbert Ng MD) Essential (primary) hypertension (Chronic) I10 Atherosclerosis of coronary artery bypass graft of [place] heart without angina pectoris (Chronic) I25.810 Cerebrovascular accident (Inactive) I63.9 Acute myocardial infarction (Acute) I21.9 Subendocardial infarction Hyperlipidemia (Chronic) E78.5 Atrial septal defect (Chronic) Q21.1 Status post repair Premature ventricular complex (Chronic) I49.3 Allergies Penicillins [PCN] Allergy (Mild, Verified 03/06/19 08:29) Rash clopidogrel [From Plavix] Adverse Reaction (Intermediate, Verified 03/06/19 08:29) Burning sensation in arms and chest Home Medications: Ambulatory Orders Medication Instructions Recorded nitroglycerin 0.4 mg sublingual 0.4 mg SUBLINGUAL Q5M PRN 06/21/17 tablet garlic 1,000 mg capsule 1,000 mg PO DAILY cap 03/06/19 aspirin 81 mg tablet,delayed 81 mg PO QDAY #60 tab 03/11/19 release ticagrelor 90 mg tablet 90 mg PO BID #60 tab 03/11/19 Ubidecarenone [Co Q-10] 30 mg PO DAILY 03/26/19 Surgical History: Surgical History (Last Updated 03/26/19 @ 13:25 by Eunice Mazariegos) History of coronary artery stent placement (Chronic) Onset Date: ~03/26/19 Z95.5 PCI/MARY of the ISR of [place] Main 03/26/19 Aortocoronary bypass status (Chronic) Z95.1 X 4 LIANG to LAD sequentially, 07/31/2003 Surgical History: coronary bypass surgery Psychiatric History: No pertinent psych hx Lives: Spouse/ Significant Other Smoking Status: Former smoker - *Family History Maternal History Items: Heart Disease - His mother had a heart attack at age 51. Paternal History Items: - - Denies any paternal medical history. Review of Systems Constitutional: Denies: Chills, Fever, Weight Change HEENT: Denies: Head Aches, Sinus Congestion, Sinus Drainage Cardiovascular: Reports: Chest Pain. Denies: Palpitations Respiratory: Denies: Cough, Shortness of breath at rest, Sputum production Gastrointestinal: Denies: Abdominal Pain, Nausea, Vomiting Genitourinary: Denies: Dysuria Musculoskeletal: Reports: Arm Pain, Back Pain. Denies: Joint Pain, Joint Tenderness Skin: Denies: Rash, Wounds Neurological: Denies: Numbness, Tingling, Focal weakness Psychiatric: Denies: Anxiety, Depression, Homicidal Ideations, Suicidal Ideations Hematologic/ Lymphatic: Denies: Easy Bruising, Easy Bleeding VTE Information - Inpt Only VTE Present on Admission: No VTE Mechan Device Prophylaxis: None VTE Pharm Prophylaxis ordered?: No Reason prophylaxis not ordered:: Treatment Not Indicated - Received therapeutic dose of heparin within the last 12 hours and now on Integrilin drip. Patient Problems: Active and Suspected Problems (Last Updated 04/03/18 @ 10:41 by Heather Herrera) STEMI (ST elevation myocardial infarction) (Acute) - Physical Exam Vitals/I&O's: Body Mass Index (BMI) 31.9 General: Alert, Oriented x3, Cooperative HEENT: Atraumatic, PERRLA, EOMI, Normocephalic Neck: Supple, No JVD, Negative Carotid Bruits Lungs: Clear to auscultation, Normal air movement Cardiovascular: Regular rate, No murmurs Abdomen: Bowel Sounds Present, Soft, Non Tender Extremities: No edema, Capillary Refill Less than 3 Seconds, - - Sheath in right groin Skin: No rashes, No breakdown Musculoskeletal: No Tenderness to Palpation of Joints or Extremities Neurological: Cranial nerves II-XII grossly intact Psych/Mental Status: Normal Affect, Appropriate Assessment/Plan All Active Problems (Last Updated 04/03/18 @ 10:41 by Heather Herrera) STEMI (ST elevation myocardial infarction) (Acute) Abnormal electrocardiogram (Acute) Acute myocardial infarction (Acute) Family history of early CAD (Resolved) The patient is a 73 year old with a history of former tobacco abuse CAD S/P CABG and stents, status post ASD closure/PFO closure (surgical and percutaneously) who recently had another coronary stent placed in his left main on 03/26/2019 s/p PCI (this admission, night of 03/30/2019) after STEMI. STEMI Place on a critical care bed at intensive care unit EKG Waldemar Beckwith reviewed showed ST elevation in aVR and in V1; with reciprocal ST depressions. STEMI alert was called prior to arrival to the emergency department. Received a full dose aspirin at [facility]. 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 Status post PCI with opening of blocked left main stent and with another stent placed in left main artery. Stent was placed in the circumflex; and the obtuse marginal was ballooned up. Ventricular ejection fraction was about 45%. Per discussion with Dr. Barragan, interventionalist, patient will be on Integrilin for 12 hours. Placed on full dose daily aspirin by steam plant records clerk. . Review of previous notes shows that patient had not accepted cardioprotective drugs because of concern for side effects. Placed on Cozaar; Coreg and high intensity statin by steam plant records clerk Hypertension Blood pressure is stable in regard to his age. Placed on Cozaar and Coreg by steam plant records clerk Chronic Systolic heart failure Per discussion with steam plant records clerk patient left ventricular ejection fraction was about 45%; likely chronic. Placed on heart failure medications as above. DVT prophylaxis Patient has received therapeutic dose of heparin within the last 12 hours and is on Integrilin drip. Code Visit Inpatient E&M: 68079 Init Hosp L3
[2019-03-31 00:25] LABS: ACT Activated Clotting Time 158 sec (74-137)
[2019-03-31 00:25] LABS: ACT Activated Clotting Time 219 sec (74-137)
--- NOTE | 2019-03-31 00:52 | CL.I_ITS ---
Patient Name: NICOLLE TREADWELL Study Date: 03/30/2019 Performing: Ji Barragan MD Ht: 68 inches 172.72 cm : 1945 Wt: 189.99 lbs 86.18 kg Age: 73 Gender: male BSA: 2 PROCEDURE(S) PERFORMED [id number], MARY AND/OR PTCA, ARTERY OR GRAFT, SINGLE VESSEL [id number] W OR WO PTCA, SINGLE CORONARY ARTERY [id number], CORONARY OR GRAFT, INITIAL VESSEL [id number]/LV [id number], EACH ADD'L CORONARY ART, SAME MAJOR CLINICAL PROFILE AND CO-MORBIDITIES Patient presents with STEMI for emergent cardiac cath.. Pt recently underwent PCI/MARY to LM on 019. Indications: ACS <= 24 hrs, Stable Known CAD, Other Heart Failure: NYHA Class: 1, Newly Diagnosed: No, Heart Failure Type: Systolic Stress/Imaging Stress/Image Study Performed: No Angina Classification Anginal Classification w/in 2 Weeks: CCS III CAD Presentations: Unstable angina. STEMI. Symptom onset Date/Time: 03/30/2019 around 930pm Comorbidities/Risk Factors: Hypertension Dyslipidemia Prior CHF Prior PCI Prior CABG CONCLUSIONS Successful PTCA/MARY to Left main for in stent thrombosis, fasciliated by reloading with brilinta, iv integrilin, thrombectomy, IVUS of LM, followed by a 3.5 x 12 Promus Synergy stent from mid LM to osti al LM, post dilated with a 3.5 x 8 NC Ballloon. All segments re-IVUSed at end of procedure which dem ostrated appropriate and complete stent apposition, no residual thombosis, and no edge dissections. Successful PTCA/MARY mid LCX with a 2.25 x 12 Promus Synergy to remove possible outflow obstruction th at may have contributed to in stent thrombosis. Successful emergent PCI with PTCA to the mid OM#1 with a 2.0 x 12 Emerge balloon, unable to pass 2.5 x 20 stent despite ary wire; 85%-->30%, no dissection. Previously placed LM stent appeared to be adequately apposed but possibley underdeployed. Cannot exc lude possible proximal edge dissection, so additional LM stent placed. RECOMMENDATIONS Highly recommend quitting all tobacco products Follow up with primary sheet metal production worker Risk factor modification ASA Indefinitley Plavix for at least 12 months Routine post interventional care Refer for Outpatient Cardiac Rehab Manual sheath removal per protocol Follow up with Dr. Alberts Manual sheath removal in am 03/31/19. Eitan for at least 12 months DESCRIPTION OF PROCEDURE The patient arrived to the procedure lab. The risks and benefits of the procedure as well as a full d escription of our services here and current unavailability of surgical backup were fully explained to the patient and/or their significant other prior to the catheterization. The Timeout was completed, verifying the correct patient and procedure. The patient's procedural site was prepped and draped in the usual fashion. Local anesthetic was given subcutaneously to right groin region with Lidocaine 2%. Using a modified Seldinger technique, arterial access was obtained via the right femoral artery, a 6 Fr sheath was inserted.. Left Coronary Artery selective angiography was performed in multiple views u sing a 6 Fr.. Left Ventriculography was performed in MCNEAL projection using a 4 Fr. Pigtail catheter. L V to AO pullback pressures were then recorded runthrough Guide wire was advanced to the Circumflex. [place] AP inserted Pass # 1 [place] AP Remov ed ebu 3.75 Guide catheter was inserted and engaged into the LCA. emerge 2.00 x 12 Balloon catheter w as advanced across lesion in the l main mid PTCA balloon inflated at 8 atms for 10 secs. Angiogram p erformed post balloon dilatation. IVUS pullback recording was performed on the l main for pre- interv ention / lesion assessment. nc emerge 3.50 x 12 Balloon catheter was advanced across lesion in the l main mid nc PTCA balloon inflated at 14 atms for 12 secs. nc PTCA balloon inflated at 14 atms for 7 secs. nc PTCA balloon inflated at 14 atms for 9 secs. Angiogram performed post balloon dilatation. Gu aaron wire was repositioned to the 1st OM emerge 2 x 12 Balloon catheter was advanced across lesion in the first obtuse marginal, mid. PTCA balloon inflated at 12 atms for 7 secs. PTCA balloon inflated at 12 atms for 9 secs. Angiogram performed post balloon dilatation. emerge 2.0 x 12 Balloon catheter was advanced across lesion in the circumflex, mid. PTCA balloon inflated at 8 atms for 8 sec s. PTCA balloon inflated at 12 atms for 8 secs. PTCA balloon inflated at 12 atms for 6 secs. Angiogra m performed post balloon dilatation. synergy 2.25 x 12 Drug Eluting stent was advanced across the les ion in the circumflex, mid. emerge 2.00 x 12 Balloon catheter was advanced across lesion in the first obtuse marginal, mid. PTCA balloon inflated at 12 atms for 18 secs. synergy 2.5 x [address] ent was advanced across the lesion in the first obtuse marginal, mid. IVUS pullback recording was per formed on the l main for post peripheral intervention assessment. runthrough Guide wire was inserted as a ary wire emerege 2.00 x 12 Balloon catheter was advanced across lesion in the first obtuse mar ginal, mid on original om wire PTCA balloon inflated at 6 atms for 9 secs. PTCA balloon inflated at 1 2 atms for 15 secs. Angiogram performed post balloon dilatation. synergy 3.5 x 12 Drug Eluting stent was advanced across the lesion in the l main mid. 3.5 x 12 nc emerge Balloon catheter was inserted post stent. IVUS pullback recording was performed on the 1 for post PCI assessment. Th e arterial sheath was sutured in place and capped INTERVENTION INFORMATION LESION SITE: Left Main (Mid) Lesion Complexity: High/C, lesion at bifurcation: No, thrombus present: Yes, lesion length: 12 mm, cu lprit lesion: Yes Pre Stenosis: 100 % Pre intervention KEREN flow: 0 PROCEDURE: Balloon Angioplasty, Drug Eluting Stent with pre and post dilatation, Thrombectomy, IVUS for pre PCI assessment and post stent placement Post Stenosis: 0 % Post intervention KEREN flow: 3 Lesion Devices: Ronni Sci EMERGE MR 2.00x12 BALLOON IGT Devices ( Formerly [place]) Coronary IVUS Catheter Ronni Sci NC EMERGE MR 3.50x12 BALLOON Terumo .014 Runthrough Extra Floppy 180cm straight Ronni Sci Synergy MR MARY 3.50x12 LESION SITE: 1st OM (Mid) Lesion Complexity: Non-High/Non-C, lesion at bifurcation: No, lesion length: 20 mm, culprit lesion: N o, In-stent restenosis: Yes Pre Stenosis: 85 % Pre intervention KEREN flow: 3 PROCEDURE: Balloon Angioplasty Post Stenosis: 30 % Post intervention KEREN flow: 3 Lesion Devices: Ronni Sci EMERGE MR 2.00x12 BALLOON LESION SITE: Circumflex (Mid) Lesion Complexity: Non-High/Non-C, lesion at bifurcation: No, thrombus present: No, lesion length: 12 mm, culprit lesion: No Pre Stenosis: 75 % Pre intervention KEREN flow: 3 PROCEDURE: Drug Eluting Stent with pre dilatation. 0 % Post intervention KEREN flow: 3 Lesion Devices: Ronni Sci EMERGE MR 2.00x12 BALLOON Ronni Sci Synergy MR MARY 2.25x12 COMPLICATIONS No Complications PROCEDURE MEDICATIONS Oxygen: 2 L/min via nasal cannula Heparin 6000 unit(s) IV 03/30/2019 23:09:25 SUMMARY OF HEMODYNAMIC DATA Time AIR REST ECG 22:59:03 AO 104/64 (82) SA 00:01:27 LV 123/-15, 8 00:05:18 LV 126/-15, 9 00:05:25 LVp 127/-20, 5 00:05:33 AOp 118/60 (82) 00:05:38 Signed By Ji Barragan MD On 03/31/2019 12:50:38 AM Ji Barragan MD
[2019-03-31] MEDS: 0.9% Normal Saline 1,000 ML 150 ML IV (00:56)
--- NOTE | 2019-03-31 00:56 | ECHOCS_ITS ---
Reason For Study: S/P IL Procedure This was a 2D Doppler, Color Flow transthoracic echocardiogram. Exam performed portable in ICU/CCU. Left Ventricle Moderately dilated left ventricle. The estimated ejection fraction is 35-40 %. Stage 2 diastolic dysfunction. Septal motion consistent with IVCD. Infero-Basal: Severely Hypokinetic. Basal inferoseptal: Severely Hypokinetic. Mid-Anterior : Hypokinetic. Lateral-Basal: Severely Hypokinetic. Right Ventricle Moderately dilated right ventricle. Atria Normal left atrium. Normal right atrium. Normal atrial septum. Mitral Valve The mitral valve is structurally normal. No prolapse or stenosis seen. Trivial mitral valve insufficiency. Tricuspid Valve Normal tricuspid valve. Unable to estimate RV systolic pressure due to insufficient tricuspid regurgitant envelope. Aortic Valve Trisinus/trileaflet aortic valve. Mild diffuse aortic valve thickening. There is no aortic stenosis. Pulmonic Valve The pulmonic valve is not well visualized. Great Vessels Normal aortic root. Normal arch. Normal inferior vena cava. Inferior vena cava collapse with sniff. Pericardium/Pleural No pericardial effusion. Medication Diluted definity 4ml given slow IV push to enhance endocardial definition. MMode/2D Measurements & Calculations LVIDd: 5.8 cm IVSd: 1.1 cm Ao root diam: 3.6 cm LVIDs: 4.6 cm LVPWd: 1.0 cm RVDd: 4.2 cm FS: 20.2 % LAV(MOD-bp): 36.6 ml LVAd ap4: 46.4 cm2 SV(MOD-sp4): 85.8 ml LAV(MOD-bp) Indexed: 17.6 ml/m2 EDV(MOD-sp4): 180.3 ml LAV(MOD-sp2): 34.0 ml EDV(sp4-el): 192.2 ml LAV(MOD-sp4): 35.6 ml LVAs ap4: 29.9 cm2 ESV(MOD-sp4): 94.5 ml ESV(sp4-el): 100.8 ml EF(MOD-sp4): 47.6 % EF(sp4-el): 47.5 % SV(sp4-el): 91.3 ml LA A4 area: 14.1 cm2 LA dimension(2D): 4.4 cm RA A4 area: 13.3 cm2 Time Measurements MV dec time: 0.22 sec Doppler Measurements & Calculations MV E max roger: 72.9 cm/sec Lat Peak E' Roger: 8.1 cm/sec Med Peak E' Roger: 6.3 cm/sec MV A max roger: 58.0 cm/sec E/E' lat: 9.0 E/E' med: 11.6 MV E/A: 1.3 Ao V2 max: 143.6 cm/sec LV V1 max: 142.9 cm/sec PA V2 max: 91.8 cm/sec Ao max P.3 mmHg LV V1 max P.2 mmHg Interpretation Summary Moderately dilated left ventricle. The estimated ejection fraction is 35-40 %. Stage 2 diastolic dysfunction. Moderately dilated right ventricle. Trivial mitral valve insufficiency. Unable to estimate RV systolic pressure due to insufficient tricuspid regurgitant envelope. Compared to echo report dated 03/20/2019, LV function appears slightly worse from 45% to 35% with new infero/lateral hypokinesis. The study was technically difficult. Contrast injection was performed. Ordering Physician: Yung^Ji^^^ Referring Physician: Ji Barragan Performed By: Soni Atkinson RDCS
--- NOTE | 2019-03-31 00:56 | EKG12_ITS ---
Test Reason : AM EKG Blood Pressure : / mmHG Vent. Rate : 059 BPM Atrial Rate : 059 BPM P-R Int : 190 ms QRS Dur : 112 ms QT Int : 458 ms P-R-T Axes : 004 -42 082 degrees QTc Int : 453 ms Sinus bradycardia Left axis deviation Nonspecific ST abnormality Abnormal ECG Confirmed by MIRTA OKEEFE, CARLEY ([id number]), editorial assistant JOE ROMO ([id number]) on 04/10/2019 2:23:20 PM Referred By: Ji Barragan Confirmed By:CARLEY KIRBY MD
[2019-03-31 06:11] LABS: Hemoglobin 12.4 g/dL (13.0-16.5); Mean Corp Hgb Conc 33.5 g/dL (32-36); Mean Corpuscular Hgb 33.7 pg (27.0-32.0); Mean Corpuscular Volume 100.5 fL (80-94); Mean Platelet Vol. 10.4 fl (6.2-12.0); Platelet Count 224 K/mm3 (150-450); RBC Distribution Width CV 11.9 % (11.6-14.6); RBC Distribution Width SD 43.6 fl (35.1-43.9); Red Blood Count 3.68 M/mm3 (4.6-6.2); White Blood Count 9.6 K/mm3 (4.4-11.0)
[2019-03-31 06:32] LABS: AST(SGOT) 235 U/L (15-37); Alanine Aminotransfer ALT/SGPT 36 U/L (16-61); Alkaline Phosphatase 59 U/L (45-117); Anion Gap 6 (5-15); BUN 16 mg/dL (7-18); BUN/Creat Ratio 16.2 RATIO (10-20); Chloride 110 mmol/L (98-107); Creatinine, Serum 0.99 mg/dL (0.70-1.30); EST Glomerular Filtration Rate 79 mL/min (>60); Est Glom Filt Rate - Afr Amer 95 mL/min (>60); Estimated Creatinine Clearance 63.33 ml/min; Glucose 109 mg/dL (74-106); Potassium 4.1 mmol/L (3.5-5.1); Sodium Level 139 mmol/L (136-145)
[2019-03-31 07:11] LABS: ACT Activated Clotting Time 125 sec (74-137)
--- NOTE | 2019-03-31 08:15 | PN_ITS ---
Patient Problems: Active and Suspected Problems (Last Reviewed 03/31/19 @ 01:06 by Delbert Ng MD) STEMI (ST elevation myocardial infarction) (Acute) Vitals/I&O's: Vital Signs Temp Pulse Resp BP Pulse Ox 98.4 F 62 12 131/64 H 97 03/31/19 04:00 03/31/19 06:00 03/31/19 06:00 03/31/19 06:00 03/31/19 07:07 Oxygen Delivery Method Room Air Weight: 213 lb 13.574 oz Body Mass Index (BMI) 32.5 Intake and Output for Last 24 Hours 03/29/19 03/30/19 03/31/19 23:59 23:59 23:59 Intake Total 1107.47 / 1107.47 Output Total 1200 / 1200 Balance -92.53 / -92.53 Laboratory Results 03/30/19 23:06: Activated Clotting Time 158 H 03/31/19 00:05: Activated Clotting Time 219 H 03/31/19 04:25: WBC 9.6, RBC 3.68 L, Hgb 12.4 L, Hct 37.0 L, MCV 100.5 H, MCH 33.7 H, MCHC 33.5, RDW Std Deviation 43.6, RDW Coeff of Neena 11.9, Plt Count 224, MPV 10.4 03/31/19 04:25: Sodium 139, Potassium 4.1, Chloride 110 H, Carbon Dioxide 23.0, Anion Gap 6, BUN 16, Creatinine 0.99, Estim Creat Clear Calc 63.33, Est GFR (MDRD) Af Amer 95, Est GFR (MDRD) Non-Af 79, BUN/Creatinine Ratio 16.2, Glucose 109 H, Calcium 8.0 L, Total Bilirubin 0.60, AST 235 H, ALT 36, Alkaline Phosphatase 59, Total Protein 6.0 L, Albumin 3.0 L, Globulin 3.0, Albumin/Globulin Ratio 1.0 03/31/19 07:02: Activated Clotting Time 125 03/31/19 07:40: Troponin I Pending Current Medications Acetaminophen (Tylenol) 650 mg PO Q6H PRN PRN PRN Reason: Pain Score 1-3/10 Aspirin (Ecotrin) 325 mg PO DAILY@0800 [facility] Atorvastatin Calcium (Lipitor) 80 mg PO QHS BRE Atropine Sulfate () 0.5 mg IV UD PRN PRN Reason: HR <50 bpm Carvedilol (Coreg) 3.125 mg PO BID [facility] Dextrose (D50w Syringe) 0 gm IV X1 PRN; Protocol PRN Reason: Hypoglycemia Glucagon () 1 mg IM .X1 PRN PRN Reason: Hypoglycemia Heparin Sodium (Beef Lung) (Heparin 500 Unit/5 Ml (100/Ml)) 500 unit IV UD PRN PRN Reason: HEPARIN FLUSH Eptifibatide (Integrilin) 75 mg in 100 mls @ 15.52 mls/hr CONT INF .Q6H27M BRE Last Infusion: 03/31/19 06:26 Dose: 2 mcg/kg/min, 15.5 mls/hr Documented by: Sodium Chloride () 1,000 mls @ 1 mls/hr IV .Q48H PRN PRN Reason: Saline Flush Labetalol HCl (Trandate) 5 mg IV X1 PRN PRN Reason: SBP > 160 when pulling sheath Lorazepam (Ativan) 1 mg PO Q6H PRN PRN PRN Reason: BACK SPASMS/ANXIETY Losartan Potassium (Cozaar) 12.5 mg PO DAILY [facility] Metoclopramide HCl (Reglan) 5 mg IV Q6H PRN PRN PRN Reason: NAUSEA/VOMITING Nitroglycerin (Nitrostat) 0.4 mg SUBLINGUAL Q5M PRN PRN Reason: CARDIAC/CHEST PAIN Ondansetron HCl (Zofran) 4 mg IV Q8H PRN PRN PRN Reason: NAUSEA/VOMITING Sodium Chloride () 500 ml IV BOLUS PRN PRN Reason: VASO-VAGAL PROTOCOL Sodium Chloride () 10 - 40 ml IV UD PRN PRN Reason: SALINE FLUSH Ticagrelor (Brilinta) 90 mg PO BID [facility] STROKE Vital Signs/Narrative: Vital Signs Pulse Resp BP Pulse Ox 03/31/19 07:07 97 03/31/19 06:00 62 12 131/64 H 97 03/31/19 05:00 75 17 147/70 H 96 Medical Necessity - Tobacco Use Smoking Status: Former smoker Assessment/Plan All Active Problems (Last Reviewed 03/31/19 @ 01:06 by Delbert Ng MD) STEMI (ST elevation myocardial infarction) (Acute) Abnormal electrocardiogram (Acute) Acute myocardial infarction (Acute) Family history of early CAD (Resolved)
--- NOTE | 2019-03-31 08:36 | CCHN_ITS ---
Hospitalist Note Patient was admitted early interventionist for chest pain, EKG showing ST elevation in aVR and V1 with reciprocal ST depression from [facility] ER. STEMI alert was called and patient went to Adding Machine Operator from [facility].. Patient had PCI of left main on 03/27/2019. Emergent cath was done and patient underwent PCI/MARY of in-stent stenosis of left main, mid circumflex and balloon angioplasty of first OM. Sheath from the right groin pulled out the morning. Patient does not complain of chest pain, shortness of breath while in ICU after the procedure. equipment monitor phototypesetting shows PVCs and run of 7 beats of NSVT. Vitals are is stable. Normal sinus rhythm with PVCs. Hemodynamically stable blood pressure 131/64. Right groin: Mild bruise over cardiac access site. No hematoma. Lungs: Air entry bilateral equal. No crepitation/rhonchi. Heart: Sinus rhythm, S1-S2 irregular with PVCs Extremities: No edema. 1. STEMI: Currently patient in ICU. EF about 45%. On IV Integrilin for 12 hours, completion time 11:30 AM today. On aspirin, Brilinta, Cozaar, Coreg Intensity statin 2. Hypertension: Blood pressure is controlled. 3. Chronic systolic heart failure: EF about 45%, chronic ischemic heart disease ischemic cardiomyopathy. DVT prophylaxis: SCD. Consider Lovenox 40 mg after 24 hours hours of pulling out sheath
--- NOTE | 2019-03-31 09:16 | PN.CARD_ITS ---
Subjectve: Patient seen and evaluated. Appears to be doing better at this time. Status post sheath removal. Objective: Vital Signs Temp Pulse Resp BP Pulse Ox 98.4 F 69 12 131/64 H 97 03/31/19 04:00 03/31/19 08:00 03/31/19 06:00 03/31/19 06:00 03/31/19 07:07 Oxygen Delivery Method Room Air Weight: 213 lb 13.574 oz Body Mass Index (BMI) 32.5 Intake and Output for Last 24 Hours 03/29/19 03/30/19 03/31/19 23:59 23:59 23:59 Intake Total 1107.47 / 1107.47 Output Total 1200 / 1200 Balance -92.53 / -92.53 General: Awake, Alert, Oriented x 3 HEENT: PERRL, EOMI, Sclera Non Icteric Neck: Supple, Good ROM, No Lymph Node Enlargement Lungs: Clear to auscultation Cardiovascular: Regular Rhythm, Normal S1, Normal S2, No Murmurs, No Rubs, No Gallops Vascular: No Carotid Bruits, Normal Femoral Pulses, Normal Radial Pulses, Normal Dorsalis Pedal Pulse, Normal Posterior Tibial Pulses Abdomen: Bowel Sounds Present, Soft, Non Tender, No HSM, No Organomegaly Extremities: No Cyanosis, No Clubbing, No edema Musculoskeletal: No Erythema Skin: No Rashes Lymphatic: No Lymph Node Enlargement Neurological: No Focal Motor or Sensory Deficit Psych/Mental Status: Appropriate 03/31/19 04:25: WBC 9.6, RBC 3.68 L, Hgb 12.4 L, Hct 37.0 L, MCV 100.5 H, MCH 33 .7 H, MCHC 33.5, Plt Count 224, MPV 10.4 03/31/19 04:25: Sodium 139, Potassium 4.1, Chloride 110 H, Carbon Dioxide 23.0, Anion Gap 6, BUN 16, Creatinine 0.99, Est GFR (MDRD) Af Amer 95, Est GFR (MDRD) Non-Af 79, BUN/Creatinine Ratio 16.2, Glucose 109 H, Calcium 8.0 L, Total Bilirubin 0.60 03/31/19 07:40: Troponin I 106.000 H* Rhythm: EKG: ECHO: Stress Test: Cardiac Cath: PCI: CT Surgery: Holter monitor: EPS: PPM: CXR: Chest CT Scan: Medical Necessity - Tobacco Use Smoking Status: Former smoker Assessment/Plan 1. Acute ST elevation myocardial infarction * Patient is doing well status post emergent angioplasty and stenting of the left main coronary artery following elective stenting on 03/27/2019. Patient also had drug-eluting stent placed to the proximal circumflex artery. Overall patient appears to be doing quite well this morning. * Will obtain echocardiogram in a.m. to assess left ventricular function * Continue aggressive risk factor modification * We will continue Brilinta and aspirin * Continue high intensity statin * Continue ARB and beta-remberto. * 2. Status post ASD closure with Amplatzer occluder device * Patient appears to be stable at this particular time no changes will be made * An echocardiogram will be performed in a.m. * 3. Hypertension * Controlled continue current medical therapy * 4. Lipidemia * Continue high intensity statin. * * Thank you for allowing me to participate in the care of your patient. Please don't hesitate to call if any issues arise
[2019-03-31] MEDS: 0.9% Saline Lock 10 ML Syringe IV ×2 (09:21→11:30)
[2019-03-31] MEDS: Aspirin E.C. 325 MG Tablet PO (09:22)
[2019-03-31] MEDS: Losartan Potassium 25 MG Tablet 12.5 MG PO (09:23)
[2019-03-31] MEDS: TICAGRELOR 90 MG TABLET PO ×2 (09:25→21:55)
[2019-03-31] MEDS: Carvedilol 3.125 MG TABLET PO ×2 (09:25→21:55)
--- NOTE | 2019-03-31 10:00 | EKG12_ITS ---
Test Reason : AM EKG Blood Pressure : / mmHG Vent. Rate : 065 BPM Atrial Rate : 065 BPM P-R Int : 188 ms QRS Dur : 106 ms QT Int : 464 ms P-R-T Axes : 043 -38 088 degrees QTc Int : 482 ms Sinus rhythm with Premature atrial complexes Left axis deviation Nonspecific ST and T wave abnormality Prolonged QT Abnormal ECG Confirmed by MIRTA OKEEFE, CARLEY ([id number]), film editor JOE ROMO ([id number]) on 04/10/2019 2:24:22 PM Referred By: Ji Barragan Confirmed By:CARLEY KIRBY MD
[2019-03-31] MEDS: Atorvastatin Calcium 80 MG Tablet PO (21:55)
[2019-04-01] VITALS (27 sets, daily range): BP systolic 97–138; BP diastolic 41–99; PULSE 54–76; RESP 11–21; TEMP 36.7–37.1; O2SAT 94–98
[2019-04-01 04:05] LABS: Hemoglobin 13.1 g/dL (13.0-16.5); Mean Corp Hgb Conc 33.6 g/dL (32-36); Mean Corpuscular Hgb 33.8 pg (27.0-32.0); Mean Corpuscular Volume 100.5 fL (80-94); Mean Platelet Vol. 10.1 fl (6.2-12.0); Platelet Count 211 K/mm3 (150-450); RBC Distribution Width CV 11.9 % (11.6-14.6); RBC Distribution Width SD 43.7 fl (35.1-43.9); Red Blood Count 3.88 M/mm3 (4.6-6.2); White Blood Count 7.7 K/mm3 (4.4-11.0)
[2019-04-01 04:15] LABS: Anion Gap 8 (5-15); BUN 16 mg/dL (7-18); BUN/Creat Ratio 14.7 RATIO (10-20); Calcium,Total 8.2 mg/dL (8.5-10.1); Chloride 110 mmol/L (98-107); Creatinine, Serum 1.09 mg/dL (0.70-1.30); EST Glomerular Filtration Rate 70 mL/min (>60); Est Glom Filt Rate - Afr Amer 85 mL/min (>60); Estimated Creatinine Clearance 57.52 ml/min; Glucose 104 mg/dL (74-106); Potassium 4.1 mmol/L (3.5-5.1); Sodium Level 141 mmol/L (136-145)
--- NOTE | 2019-04-01 06:39 | CRPHASE1 ---
Patient Communication Former Patient:: Phase I - Patient previously seen by CR staff on 03/26/2019, Phase II - Patient has previously participated in outpatient CR program. PHII Cardiac Rehab Discussed with Patient:: Yes Guide to Cardiac Rehab Given to Patient:: Yes Cardiac Rehab Facility Choice List Given to Patient:: Yes Choice Program [facility] CR PHII:: Communication Given to CR, Refer to [facility] Farm Labor Contractor:: Ji Barragan Refer Phase II Cardiac Rehab:: Yes Sessions:: 36 sessions - 3 days/wk, 12 weeks Cardiac Rehabilitation Info Cardiac Rehabilitation Program Information: Cardiac Rehabilitation is important for patients like you who are recovering from a heart problem. Cardiac rehabilitation programs are recognized as integral to the continued care of the patient with coronary heart disease. The cardiac rehabilitation program is designed to optimize a patient's physical, psychological, and social functioning. Health rn progressive care work in cardiac rehabilitation programs and assist you with getting the treatments you need to get stronger and healthier - like exercise, healthy eating habits, and medications. Cardiac rehabilitation has been show to help people with heart problems live longer and have better life enjoyment than people who do not go to cardiac rehabilitation. Please contact the Cardiac Rehabilitation Program at [facility] at in two weeks if you have not heard from them.
--- NOTE | 2019-04-01 06:40 | CRPH1.INSTRU ---
General Education CAD and cardiac anatomy and function:: Patient communicates acknowledgment Explanation of diagnoses and procedures:: Patient communicates acknowledgment Sign/Symptoms of MS:: Patient communicates acknowledgment Antiplatelet therapy: Patient communicates acknowledgment Proper use of NTG-SL: Patient communicates acknowledgment Emergency procedures and activation of EMS: Patient communicates acknowledgment Compliance of all prescribed medications: Patient communicates acknowledgment - Patient was previously educated about heart disease by CR staff on 03/26/2019 and provided a Guide top Your Cardiac Rehab booklet. Patient has alos had formalized patient education in our outpatient CR program.
[2019-04-01] MEDS: Carvedilol 3.125 MG TABLET PO (09:26)
[2019-04-01] MEDS: Losartan Potassium 25 MG Tablet 12.5 MG PO (09:26)
[2019-04-01] MEDS: Aspirin E.C. 325 MG Tablet PO (09:26)
[2019-04-01] MEDS: TICAGRELOR 90 MG TABLET PO ×2 (09:26→21:30)
--- NOTE | 2019-04-01 09:47 | PN.CARD_ITS ---
Subjectve: The patient is recovering in the ICU. He states he is feeling better overall. He denies ongoing chest or back discomfort at this time. He is breathing is without concern to him at the moment. He denies any obvious palpitations or rapid rate sensations. Objective: Vital Signs Temp Pulse Resp BP Pulse Ox 98.5 F 70 17 114/58 L 97 04/01/19 09:00 04/01/19 09:00 04/01/19 09:00 04/01/19 09:00 04/01/19 09:00 Oxygen Delivery Method Room Air Weight: 209 lb 14.081 oz Body Mass Index (BMI) 32.5 Intake and Output for Last 24 Hours 03/30/19 03/31/19 04/01/19 23:59 23:59 23:59 Intake Total 2146.00 / 2926.00 1020 / 1020 Output Total 2225 / 2375 450 / 450 Balance -79.00 / 551.00 570 / 570 General: Awake, Alert, Oriented x 3, Cooperative, No Acute Distress HEENT: Atraumatic, Normocephalic, PERRL, EOMI, Sclera Non Icteric Oral: Moist Mucosa Neck: Supple, Good ROM, No JVD Lungs: Clear to auscultation Cardiovascular: Regular Rhythm, Premature Ectopic Beats, Normal S1, Normal S2 Vascular: No Carotid Bruits Abdomen: Bowel Sounds Present, Soft, Non Tender Extremities: No edema Neurological: No Focal Motor or Sensory Deficit Psych/Mental Status: Appropriate 03/31/19 10:43: Troponin I 99.000 H* 03/31/19 13:40: Troponin I 83.800 H* 04/01/19 03:45: WBC 7.7, RBC 3.88 L, Hgb 13.1, Hct 39.0 L, MCV 100.5 H, MCH 33.8 H, MCHC 33.6, Plt Count 211, MPV 10.1 04/01/19 03:45: Sodium 141, Potassium 4.1, Chloride 110 H, Carbon Dioxide 23.0, Anion Gap 8, BUN 16, Creatinine 1.09, Est GFR (MDRD) Af Amer 85, Est GFR (MDRD) Non-Af 70, BUN/Creatinine Ratio 14.7, Glucose 104, Calcium 8.2 L Rhythm: Sinus rhythm; episodes appearing compatible with an ectopic atrial rhythm; episodes appearing compatible with nonsustained ventricular tachycardia EKG: Sinus rhythm; left axis deviation; nonspecific ST/T wave abnormality ECHO: Pending Medical Necessity - Tobacco Use Smoking Status: Former smoker Assessment/Plan 1. Acute coronary syndrome/acute myocardial infarction At the present time he appears to be symptomatically improved. He is continuing to be monitored. He will continue medical management which includes a combination of his antiplatelet agents, beta-blockers, afterload reducing agents, lipid-lowering agents, and based upon his cardiac dysrhythmia, which potentially with respect to his wide-complex rhythm could be reperfusion arrhythmias, may also be considered, at least for period of time, with additional antiarrhythmic therapy such as amiodarone therapy. The patient states that he is in agreement now, as he was not in the past as previously noted, to take medications as recommended above his antiplatelet therapy. He is also going to have an echocardiogram to further assess his left ventricul ar wall motion and systolic function. 2. CAD status post PCI status post CABG The patient has had an extensive history of CAD and is undergone both percutaneous and surgical based revascularization in the past remotely and recently. He presented back with concerns of acute coronary syndrome/acute myocardial infarction thought secondary to acute PCI thrombosis. He underwent repeat PCI. At the moment he is continuing medical management. 3. ASD/PFO status post surgical based and percutaneous-based closure The patient does have a previous ASD/PFO closure as noted initially surgically and then subsequently percutaneous. This appears to been stable. 4. Cardiac dysrhythmia The patient has demonstrated episodes of cardiac dysrhythmias as noted above. The wide-complex rhythm may be a reperfusion arrhythmia. However based upon his overall clinical case it was felt not unreasonable, at least for period of time, that he be considered for antiarrhythmic therapy. Thus he is going to be placed on amiodarone therapy barring unforeseen concerns, etc. 5. Hyperlipidemia He will continue risk factor modification medical therapy as deemed appropriate. 6. Hypertension He will continue medical management and follow-up. Overall, at the present time, he is in agreement, as opposed to previous, of continuing medical therapy as recommended above and beyond antiplatelet therapy. He will continue his evaluation and care. This note was generated using a voice recognition system and there may be incorrect words, spelling or punctuation that were not noted when reviewing the office note prior to saving.
--- NOTE | 2019-04-01 09:55 | CASEMGMT ---
RN CM SCHOOL BUS TECHNICIAN CM to room to meet with patient for initial transition planning/care coordination assessment. RN CROW introduced self and role at [facility]. Pt voices understanding and consents to assessment at this time. Pt resting in bed in no distress at this time. @ bedside. Pt is A/O at this time and answers all questions appropriately. Care providers, pharmacy, and demographics verified at this time. PCP: Dr Leonarda Smith. Specialists: [place]--cardiology, [place]--chiropractor Preferred Pharmacy: [facility] Insurance: MMO, iMER Prescription Benefit: Yes Living Will/HPOA: States does not have LW or HCPOA . Interested in more information and would like to talk to SW to complete paperwork. MACKENZIE Montano, notified. LNOK: Living Arrangements: Lives in tri-level home with his . Pt independent with ADL's. /pt share home mgmt tasks. Transportation: Pt states drives self and states no transportation concerns at this time. will take pt home @ discharge. DME: Denies using any DME and denies needs. HHC/SNF: No history of SNF. Has used HHC in the past after heart surgery, but does not remember name of agency. Denies need for HHC @ discharge. Pt wishes to return home and states has no concerns with going home at time of discharge. CM to follow for any discharge planning/needs. Pt/ voice no further concerns/needs at this time. Advised them to ask for CM if any further questions/concerns/needs arise. They voice understanding. PT GOAL: Home PLAN: Home Solit[facility] JOHNS RN, CM
--- NOTE | 2019-04-01 10:00 | EKG12_ITS ---
Test Reason : AM EKG Blood Pressure : / mmHG Vent. Rate : 085 BPM Atrial Rate : 085 BPM P-R Int : 192 ms QRS Dur : 104 ms QT Int : 408 ms P-R-T Axes : 073 -22 082 degrees QTc Int : 485 ms Normal sinus rhythm Nonspecific ST and T wave abnormality Prolonged QT Abnormal ECG Confirmed by MIRTA OKEEFE, CARLEY ([id number]), greeting card editor JOE ROMO ([id number]) on 04/10/2019 2:27:08 PM Referred By: Ji Barragan Confirmed By:CARLEY KIRBY MD
[2019-04-01 10:23] LABS: AST(SGOT) 178 U/L (15-37); Alanine Aminotransfer ALT/SGPT 37 U/L (16-61); Albumin, Serum 2.9 g/dL (3.2-5.0); Alkaline Phosphatase 59 U/L (45-117); Bilirubin, Direct 0.16 mg/dL (0.00-0.30); Globulin 3.1 g/dL (2.2-4.2); Thyroid Stim Hormone (TSH) 6.19 uIU/mL (0.358-3.74)
--- NOTE | 2019-04-01 11:36 | PCM.PROGNOTE ---
Patient Problems: Active and Suspected Problems (Last Updated 04/01/19 @ 11:38 by Diamante Riley MD) STEMI (ST elevation myocardial infarction) (Acute) Subjective: Chief complaint: Follow-up after admission for acute ST elevation NM. Patient seen and examined. No acute events overnight. Today, he denies any complaints. His vital signs are stable. - Physical Exam Vitals/I&O's: Vital Signs Temp Pulse Resp BP Pulse Ox 98.5 F 71 13 106/41 L 98 04/01/19 09:00 04/01/19 11:11 04/01/19 11:00 04/01/19 11:00 04/01/19 11:00 Oxygen Delivery Method Room Air Weight: 209 lb 14.081 oz Body Mass Index (BMI) 32.5 Intake and Output for Last 24 Hours 03/30/19 03/31/19 04/01/19 23:59 23:59 23:59 Intake Total 2146.00 / 2926.00 1020 / 1020 Output Total 2225 / 2375 450 / 450 Balance -79.00 / 551.00 570 / 570 General: Alert, Oriented x3, Cooperative, No apparent distress HEENT: Atraumatic, PERRLA, EOMI, Normocephalic Oral: Moist Mucosa, No Gingival or Mucosal Lesions/ Ulcerations Neck: Supple, No JVD, Negative Carotid Bruits, Trachea Midline, Thyroid Normal Size and Texture Lungs: Clear to auscultation, Normal air movement, No rhonchi, No wheeze, No rales Cardiovascular: Regular rate, Regular Rhythm, Normal S1, Normal S2, PMI Normal Abdomen: Bowel Sounds Present, Soft, Non Tender, Non-Distended, No Hepato-splenomegaly Extremities: No clubbing, No cyanosis, No edema Skin: No rashes, No breakdown Lymphatic: No Cervical, Supraclavicular, or Inguinal Adenopathy Neurological: Cranial nerves II-XII grossly intact, Motor Exam 5/5 strength throughout Psych/Mental Status: Normal Affect, Appropriate, Alert and oriented to time, place, person, mood and affect Laboratory Results 03/31/19 13:40: Troponin I 83.800 H* 04/01/19 03:45: WBC 7.7, RBC 3.88 L, Hgb 13.1, Hct 39.0 L, MCV 100.5 H, MCH 33.8 H, MCHC 33.6, RDW Std Deviation 43.7, RDW Coeff of Neena 11.9, Plt Count 211, MPV 10.1 04/01/19 03:45: Sodium 141, Potassium 4.1, Chloride 110 H, Carbon Dioxide 23.0, Anion Gap 8, BUN 16, Creatinine 1.09, Estim Creat Clear Calc 57.52, Est GFR (MDRD) Af Amer 85, Est GFR (MDRD) Non-Af 70, BUN/Creatinine Ratio 14.7, Glucose 104, Calcium 8.2 L 04/01/19 03:45: Total Bilirubin 0.70, Direct Bilirubin 0.16, AST 178 H, ALT 37, Alkaline Phosphatase 59, Total Protein 6.0 L, Albumin 2.9 L, Globulin 3.1, TSH 6.19 H Current Medications Acetaminophen (Tylenol) 650 mg PO Q6H PRN PRN PRN Reason: Pain Score 1-3/10 Amiodarone HCl (Cordarone) 200 mg PO TID [facility] Aspirin (Ecotrin) 325 mg PO DAILY@0800 [facility] Last Admin: 04/01/19 09:26 Dose: 325 mg Documented by: Atorvastatin Calcium (Lipitor) 80 mg PO QHS [facility] Last Admin: 03/31/19 21:55 Dose: 80 mg Documented by: Atropine Sulfate () 0.5 mg IV UD PRN PRN Reason: HR <50 bpm Carvedilol (Coreg) 3.125 mg PO BID [facility] Last Admin: 04/01/19 09:26 Dose: 3.125 mg Documented by: Dextrose (D50w Syringe) 0 gm IV X1 PRN; Protocol PRN Reason: Hypoglycemia Glucagon () 1 mg IM .X1 PRN PRN Reason: Hypoglycemia Heparin Sodium (Beef Lung) (Heparin 500 Unit/5 Ml (100/Ml)) 500 unit IV UD PRN PRN Reason: HEPARIN FLUSH Sodium Chloride () 1,000 mls @ 1 mls/hr IV .Q48H PRN PRN Reason: Saline Flush Labetalol HCl (Trandate) 5 mg IV X1 PRN PRN Reason: SBP > 160 when pulling sheath Lorazepam (Ativan) 1 mg PO Q6H PRN PRN PRN Reason: BACK SPASMS/ANXIETY Losartan Potassium (Cozaar) 12.5 mg PO DAILY [facility] Last Admin: 04/01/19 09:26 Dose: 12.5 mg Documented by: Metoclopramide HCl (Reglan) 5 mg IV Q6H PRN PRN PRN Reason: NAUSEA/VOMITING Nitroglycerin (Nitrostat) 0.4 mg SUBLINGUAL Q5M PRN PRN Reason: CARDIAC/CHEST PAIN Ondansetron HCl (Zofran) 4 mg IV Q8H PRN PRN PRN Reason: NAUSEA/VOMITING Sodium Chloride () 500 ml IV BOLUS PRN PRN Reason: VASO-VAGAL PROTOCOL Sodium Chloride () 10 - 40 ml IV UD PRN PRN Reason: SALINE FLUSH Last Admin: 03/31/19 11:30 Dose: 20 ml Documented by: Ticagrelor (Brilinta) 90 mg PO BID [facility] Last Admin: 04/01/19 09:26 Dose: 90 mg Documented by: Medical Necessity - Tobacco Use Smoking Status: Former smoker Assessment/Plan All Active Problems (Last Updated 04/01/19 @ 11:38 by Diamante Riley MD) STEMI (ST elevation myocardial infarction) (Acute) This is a 73 years old male patient was directly admitted from outside facility for acute ST elevation NM, underwent emergent cardiac catheterization, status post angioplasty and stenting of the left main coronary artery following elective stenting on March 27, 2019. #[address] elevation NM: Status post angioplasty and stenting of the left main coronary artery. Patient is on aspirin, statins, Coreg, Brilinta. He is asymptomatic, vital signs are stable. 2D echocardiogram done this morning, awaiting the report. Cardiology on the case. TSH was elevated. Plan: Continue same treatment, check free and total T4, free T3. #2 cardiac arrhythmia: It was wide complex tachycardia, presumed to be nonsustained V. tach which could be due to reperfusion. Patient had no more nonsustained V. tach but he has been having PVCs. He was started on amiodarone this morning his vital signs are stable. #3 CAD status post CABG and previous stents: With previous stents, went for elective stenting on March 27, 2019. He is on aspirin, Coreg, Brilinta as mentioned above. #4 hypertension: Blood pressure stable, continue losartan and Coreg. #5 hyperlipidemia: Continue statins. #6 ASD: Status post repair, stable. #7 DVT prophylaxis: SCDs. This note was generated with MedPassageation software. It may contain incorrect words, spelling, and punctuation that were not noted in checking the note before signing. Code Visit Inpatient E&M: 24750 Subs Hosp L2
[2019-04-01 12:17] LABS: Free T3 2.2 pg/mL (2.18-3.98); T4 Free Direct 1.09 ng/dL (0.76-1.46); T4 Total, Thyroxin 8.9 ug/dL (4.5-12.1)
[2019-04-01] MEDS: Amiodarone 200 MG Tablet PO ×2 (12:22→21:28)
--- NOTE | 2019-04-01 12:50 | CHAPLAIN ---
Type of Pastoral Visit _x__ Initial Visit ___ Follow-up Visit ___ On-call Visit ___ General Patient Visit ___ Spiritual Assessment ___ Family Conference ___ Bereavement ___ Rapid Response ___ Code Blue ___ Other (describe below) Pastoral Care Referral From _x__ Patient ___ Family ___ Nurse ___ Physician ___ Equipment Operator [employer] ___ Managing Member ___ Other (describe below) Sacrament/Intervention _x__ Active listening ___ Anointing ___ Sabianist ___ Bereavement ___ Communion _x__ Shefali exploration ___ _x__ Life review _x__ Prayer ___ Reconciliation ___ Sacrament of Sick _x__ Supportive presence ___ Wedding ___ Other (describe below) Pastoral Comments
--- NOTE | 2019-04-01 14:35 | CASEMGMT ---
Social Work Note ICU Reason for Consult: Advanced directives Referral Source: Dr. Riley/Yobani Lion RN, CM Date of Intervention: 04.01.2019 Time of Intervention: approximately [id number] Summary: Met with patient and Radha in patient's room. Patient sitting up in chair, alert, oriented, pleasant, and engaging in conversation. Radha also and active participant in conversation, appropriately so. Patient confirms desire to have more information on advanced directives but not quite ready to complete forms at this time. Patient reports he and Radha have been talking things through regarding this subject. Patient reports to think to know who patient would identify on the advanced directives but still talking things out with Radha. Educated to the difference between the power of associate attorney and the living will, and explored with patient and some things to consider when determining who to identify on the forms. Answered patient's and Rahda's questions who both deny any further needs or concerns at this time. Patient and expressed understanding that if desire to complete forms while still a patient then social economist can return. Also express understanding that can call in after discharge to make an appointment to complete as an outpatient. Copies of advanced directives, question and answer booklet, and social work rack card given for further information and support on this topic. Supportive listening and reflection offered today. Patient expressed appreciation for time and information offered this date. Plan: Patient planning to discharge home with as before. Patient and have been given information and education on who to contact when decides that wants to complete advanced directives. No other services requested or indicated, but social work does remain available should further needs arise. -FRANKLYN Pina, TRAVEL SPECIALIST
[2019-04-01] MEDS: Atorvastatin Calcium 80 MG Tablet PO (21:29)
[2019-04-02] VITALS (13 sets, daily range): BP systolic 96–136; BP diastolic 54–86; PULSE 52–89; RESP 11–22; TEMP 36.6–36.7; O2SAT 92–98
[2019-04-02] MEDS: Amiodarone 200 MG Tablet PO (05:24)
[2019-04-02] MEDS: Carvedilol 3.125 MG TABLET PO (08:26)
[2019-04-02] MEDS: Losartan Potassium 25 MG Tablet 12.5 MG PO (08:27)
[2019-04-02] MEDS: TICAGRELOR 90 MG TABLET PO (08:27)
[2019-04-02] MEDS: Aspirin E.C. 325 MG Tablet PO (08:27)
--- NOTE | 2019-04-02 08:37 | PCM.PN.CARD ---
Subjectve: The patient is awake and alert. He has been up in the chair and up and ambulating in the ICU. He states overall he feels better. He denies ongoing chest discomfort or worsening shortness of breath/dyspnea. There has been no palpitations or near syncope or syncope. Objective: Vital Signs Temp Pulse Resp BP Pulse Ox 98.0 F 62 14 122/74 H 96 04/02/19 04:00 04/02/19 08:00 04/02/19 08:00 04/02/19 08:00 04/02/19 08:00 Oxygen Delivery Method Room Air Weight: 210 lb 8.663 oz Body Mass Index (BMI) 32.5 Intake and Output for Last 24 Hours 03/31/19 04/01/19 04/02/19 23:59 23:59 23:59 Intake Total 2146.00 / 2926.00 1020 / 1140 180 / 180 Output Total 2225 / 2375 1325 / 1575 775 / 775 Balance -79.00 / 551.00 -305 / -435 -595 / -595 General: Awake, Alert, Oriented x 3, Cooperative, No Acute Distress HEENT: Atraumatic, Normocephalic, PERRL, EOMI Oral: Moist Mucosa Neck: Supple, Good ROM, No JVD Lungs: Clear to auscultation Cardiovascular: Regular Rhythm, Normal S1, Normal S2 Abdomen: Bowel Sounds Present, Soft, Non Tender Extremities: No edema Neurological: No Focal Motor or Sensory Deficit Psych/Mental Status: Appropriate 04/01/19 03:45: Total Bilirubin 0.70, Direct Bilirubin 0.16 Rhythm: Sinus rhythm EKG: Sinus rhythm; left axis deviation; nonspecific ST segment abnormality ECHO: Interpretation Summary Moderately dilated left ventricle. The estimated ejection fraction is 35-40 %. Stage 2 diastolic dysfunction. Moderately dilated right ventricle. Trivial mitral valve insufficiency. Unable to estimate RV systolic pressure due to insufficient tricuspid regurgitant envelope. Compared to echo report dated 03/20/2019, LV function appears slightly worse from 45% to 35% with new infero/lateral hypokinesis. The study was technically difficult. Contrast injection was performed. Medical Necessity - Tobacco Use Smoking Status: Former smoker Assessment/Plan 1. Acute coronary syndrome/acute myocardial infarction At the present time he appears to be symptomatically improved. His transthoracic echocardiogram is as noted above. Hopefully his left ventricular systolic function will improve as he recuperates from his acute coronary syndrome event on medical management. He will need continued outpatient cardiovascular follow-up and cardiac rehabilitation. 2. CAD status post PCI status post CABG The patient has had an extensive history of CAD and is undergone both percutaneous and surgical based revascularization in the past remotely and recently. He presented back with concerns of acute coronary syndrome/acute myocardial infarction thought secondary to acute PCI thrombosis. He underwent repeat PCI. At the moment he is continuing medical management. 3. ASD/PFO status post surgical based and percutaneous-based closure The patient does have a previous ASD/PFO closure as noted initially surgically and then subsequently percutaneous. This appears to been stable. 4. Cardiac dysrhythmia His cardiac rhythm appears to be remaining sinus rhythm at this time. He will continue medical therapy. This will include antiarrhythmic therapy. The duration of the antiarrhythmic agent can be considered as he recuperates from his event. 5. Hyperlipidemia He will continue risk factor modification medical therapy as deemed appropriate. 6. Hypertension He will continue medical management and follow-up. Overall, at the present time, he is in agreement, as opposed to previous, of continuing medical therapy as recommended above and beyond antiplatelet therapy. He will continue his evaluation and care. He will continue outpatient cardiovascular follow-up. He is in agreement to outpatient cardiac rehabilitation. Hopefully the patient, noting symptomatic improvement, hemodynamic stability, rhythm stability, etc. can be considered stable for discharge home with continued outpatient follow-up. This note was generated using a voice recognition system and there may be incorrect words, spelling or punctuation that were not noted when reviewing the office note prior to saving.
--- NOTE | 2019-04-02 08:54 | PCM.DC ---
- Discharge Diagnoses Current Active Problems: Current Active and Chronic Problems (Last Updated 04/01/19 @ 11:38 by Diamante Riley MD) STEMI (ST elevation myocardial infarction) (Acute) You will use the following diet at home:: Cardiac Your food should be the consistency of: Regular Discharge Activity: Return to Normal Activity Weight Bearing Status: Weight bearing as tolerated Call your doctor if you observe: Fever of 101 or Higher, Shortness of breath, Dizziness, Fainting spells, Chest pain, Increased palpitations (irregular heartbeat), Uncontrolled pain Instructions: Amiodarone Hydrochloride Oral tablet, Heart Attack Allergies/Adverse Reactions: Allergies Penicillins [PCN] Allergy (Mild, Verified 03/06/19 08:29) Rash clopidogrel [From Plavix] Adverse Reaction (Intermediate, Verified 03/06/19 08:29) Burning sensation in arms and chest Medications to take at Discharge nitroglycerin 0.4 mg sublingual tablet 0.4 mg SUBLINGUAL Q5M PRN 06/21/17 garlic 1,000 mg capsule 1,000 mg PO DAILY cap 03/06/19 Ubidecarenone [Co Q-10] 30 mg PO DAILY 03/26/19 Aspirin [Low Dose Aspirin EC] 81 mg PO QDAY 03/31/19 Amiodarone HCl [Cordarone] 200 mg PO TID #90 tab 04/02/19 Atorvastatin Calcium [Lipitor] 80 mg PO QHS #90 tab 04/02/19 Carvedilol [Coreg (Beta Regina)] 3.125 mg PO BID #90 tab 04/02/19 Losartan Potassium [Cozaar] 12.5 mg PO DAILY #90 tab 04/02/19 Ticagrelor [Brilinta] 90 mg PO BID #90 tab 04/02/19 The following prescriptions were given: Ticagrelor [Brilinta] 90 mg PO BID #90 tab Transmission Status: Pending to [facility] Amiodarone HCl [Cordarone] 200 mg PO TID #90 tab Transmission Status: Pending to [facility] Carvedilol [Coreg (Beta Regina)] 3.125 mg PO BID #90 tab Transmission Status: Pending to [facility] Losartan Potassium [Cozaar] 12.5 mg PO DAILY #90 tab Transmission Status: Pending to [facility] [facility]. Atorvastatin Calcium [Lipitor] 80 mg PO QHS #90 tab Transmission Status: Pending to [facility] [address] [facility]. Primary Care Physician: Leonarda Smith DO [Primary Care Provider] - Please follow up with your Primary Care Physician in: 1 week. Test Results: Test results from this visit will be discussed in further detail at your follow-up appointment, if applicable. Please Follow Up With: Christian Alberts MD When: 2-3 weeks.
--- NOTE | 2019-04-02 11:22 | PCM.DC.SUM ---
Discharge Date and Diagnosis - Problem List Patient Problems: Active and Suspected Problems (Last Updated 04/01/19 @ 11:38 by Diamante Riley MD) STEMI (ST elevation myocardial infarction) (Acute) Date of Admission: 03/30/19 Date of Discharge: 04/02/19 - Primary Discharge Diagnosis Active and Suspected Problems (Last Updated 04/01/19 @ 11:38 by Diamante Riley MD) #[address] elevation [place], status post angioplasty and stenting of the left main coronary artery. #2 cardiac arrhythmia, nonsustained V. tach. - Secondary Discharge Diagnosis Chronic Problems (Last Updated 04/01/19 @ 11:38 by Diamante Riley MD) CAD in [place] artery (Chronic) History of coronary artery stent placement (Chronic 03/30/19) 03/26/19:PCI/[facility] of [facility] 03/26/19; 03/30/19 Successful PTCA/MARY to Left main for in stent thrombosis, fasciliated by reloading with brilinta, iv integrilin, thrombectomy, IVUS of LM, followed by a 3.5 x 12 Promus Synergy stent from mid LM to ostial LM, post dilated with a 3.5 x 8 NC Ballloon. All segments re-IVUSed at end of procedure which demostrated appropriate and complete stent apposition, no residual thombosis, and no edge dissections. Successful PTCA/MARY mid LCX with a 2.25 x 12 Promus Synergy to remove possible outflow obstruction that may have contributed to in stent thrombosis. Successful emergent PCI with PTCA to the mid OM#1 with a 2.0 x 12 Emerge balloon, unable to pass 2.5 x 20 stent despite ary wire; 85%-->30%, no dissection. Previously placed LM stent appeared to be adequately apposed but possibley underdeployed. Cannot exclude possible proximal edge dissection, so additional LM stent placed. Essential (primary) hypertension (Chronic) Atherosclerosis of coronary artery bypass graft of [place] heart without angina pectoris (Chronic) Aortocoronary bypass status (Chronic) X 4 LIANG to LAD sequentially, 07/31/2003 Hyperlipidemia (Chronic) Atrial septal defect (Chronic) Status post repair Premature ventricular complex (Chronic) Hospital Course and Treatment Dr. Barragan/Dr. Alberts, cardiology. Operations: None Procedures: 2-D Echocardiogram, Cardiac catheterization, EKG Summary of Care Provided: Patient seen and examined on the day of discharge and appeared to be stable to be discharged home. He remained asymptomatic, no complaints. His vitals are stable. The patient is a 73 year old M patient was admitted directly from outside facility for acute ST elevation [place], underwent emergent cardiac catheterization, status post angioplasty and stenting of the left main coronary artery following elective stenting on March 27, 2019. Patient went to the other facility ED department for chest pain, found to have acute ST elevation and he was transferred for emergent cardiac catheterization. On cardiac catheterization, he was found to have thrombus in the mid left main coronary artery, underwent balloon angioplasty and placement of drug-eluting stent as well as thrombectomy. Patient was transferred to ICU afterwards and was treated with aspirin, Brilinta, losartan, statins and Coreg. 2D echocardiogram revealed ejection fraction of 55 to 40%, stage II diastolic dysfunction, moderately dilated right ventricle. While in the ICU, patient developed cardiac arrhythmia which seemed to be nonsustained V. tach which is attributed to reperfusion. Serum electrolytes were normal. Patient was started on amiodarone which was tolerated. Afterwards, patient did very well and his vital signs remained stable. He remained asymptomatic. Patient discharged home in a stable medical condition, discharged on aspirin, Brilinta, losartan, Coreg, started on amiodarone 200 mg p.o. 3 times daily for 1 week, then 200 mg p.o. twice daily for 1 week and then 200 mg p.o. daily, plan to follow-up with cardiology in 2 to 3 weeks, recommended follow-up with PCP in 1 week. Patient Problems: Active and Suspected Problems (Last Updated 04/01/19 @ 11:38 by Diamante Riley MD) STEMI (ST elevation myocardial infarction) (Acute) - Physical Exam Vitals/I&O's: Vital Signs Temp Pulse Resp BP Pulse Ox 98.0 F 64 18 116/60 96 04/02/19 04:00 04/02/19 09:00 04/02/19 09:00 04/02/19 09:00 04/02/19 09:00 Oxygen Delivery Method Room Air Weight: 210 lb 8.663 oz Body Mass Index (BMI) 32.5 Intake and Output for Last 24 Hours 03/31/19 04/01/19 04/02/19 23:59 23:59 23:59 Intake Total 2146.00 / 2926.00 1020 / 1140 180 / 180 Output Total 2225 / 2375 1325 / 1575 775 / 775 Balance -79.00 / 551.00 -305 / -435 -595 / -595 General: Alert, Oriented x3, Cooperative, No apparent distress HEENT: Atraumatic, PERRLA, EOMI, Normocephalic Oral: Moist Mucosa, No Gingival or Mucosal Lesions/ Ulcerations Neck: Supple, No JVD, Negative Carotid Bruits, Trachea Midline, Thyroid Normal Size and Texture Lungs: Clear to auscultation, Normal air movement, No rhonchi, No wheeze, No rales Cardiovascular: Regular rate, Regular Rhythm, Normal S1, Normal S2, PMI Normal Abdomen: Bowel Sounds Present, Soft, Non Tender, Non-Distended, No Hepato-splenomegaly Extremities: No clubbing, No cyanosis, No edema Skin: No rashes, No breakdown Lymphatic: No Cervical, Supraclavicular, or Inguinal Adenopathy Neurological: Cranial nerves II-XII grossly intact, Neuro grossly intact Psych/Mental Status: Normal Affect, Appropriate Laboratory Results 04/01/19 03:45: Free T4 1.09, Thyroxine (T4) 8.9, Free T3 pg/dL 2.2 Current Medications Acetaminophen (Tylenol) 650 mg PO Q6H PRN PRN PRN Reason: Pain Score 1-3/10 Amiodarone HCl (Cordarone) 200 mg PO TID [facility] Stop: 04/07/19 22:01 Last Admin: 04/02/19 05:24 Dose: 200 mg Documented by: Amiodarone HCl (Cordarone) 200 mg PO BID [facility] Stop: 04/14/19 22:01 Amiodarone HCl (Cordarone) 200 mg PO DAILY [facility] Aspirin (Ecotrin) 325 mg PO DAILY@0800 [facility] Last Admin: 04/02/19 08:27 Dose: 325 mg Documented by: Atorvastatin Calcium (Lipitor) 80 mg PO QHS [facility] Last Admin: 04/01/19 21:29 Dose: 80 mg Documented by: Atropine Sulfate () 0.5 mg IV UD PRN PRN Reason: HR <50 bpm Carvedilol (Coreg) 3.125 mg PO BID [facility] Last Admin: 04/02/19 08:26 Dose: 3.125 mg Documented by: Dextrose (D50w Syringe) 0 gm IV X1 PRN; Protocol PRN Reason: Hypoglycemia Glucagon () 1 mg IM .X1 PRN PRN Reason: Hypoglycemia Heparin Sodium (Beef Lung) (Heparin 500 Unit/5 Ml (100/Ml)) 500 unit IV UD PRN PRN Reason: HEPARIN FLUSH Sodium Chloride () 1,000 mls @ 1 mls/hr IV .Q48H PRN PRN Reason: Saline Flush Labetalol HCl (Trandate) 5 mg IV X1 PRN PRN Reason: SBP > 160 when pulling sheath Lorazepam (Ativan) 1 mg PO Q6H PRN PRN PRN Reason: BACK SPASMS/ANXIETY Losartan Potassium (Cozaar) 12.5 mg PO DAILY [facility] Last Admin: 04/02/19 08:27 Dose: 12.5 mg Documented by: Metoclopramide HCl (Reglan) 5 mg IV Q6H PRN PRN PRN Reason: NAUSEA/VOMITING Nitroglycerin (Nitrostat) 0.4 mg SUBLINGUAL Q5M PRN PRN Reason: CARDIAC/CHEST PAIN Ondansetron HCl (Zofran) 4 mg IV Q8H PRN PRN PRN Reason: NAUSEA/VOMITING Sodium Chloride () 500 ml IV BOLUS PRN PRN Reason: VASO-VAGAL PROTOCOL Sodium Chloride () 10 - 40 ml IV UD PRN PRN Reason: SALINE FLUSH Last Admin: 03/31/19 11:30 Dose: 20 ml Documented by: Ticagrelor (Brilinta) 90 mg PO BID [facility] Last Admin: 04/02/19 08:27 Dose: 90 mg Documented by: Discharge Activity: Return to Normal Activity Weight Bearing Status: Weight bearing as tolerated Call your doctor if you observe: Fever of 101 or Higher, Shortness of breath, Dizziness, Fainting spells, Chest pain, Increased palpitations (irregular heartbeat), Uncontrolled pain Home Medications: Medications to take at Discharge nitroglycerin 0.4 mg sublingual tablet 0.4 mg SUBLINGUAL Q5M PRN 06/21/17 garlic 1,000 mg capsule 1,000 mg PO DAILY cap 03/06/19 Ubidecarenone [Co Q-10] 30 mg PO DAILY 03/26/19 Aspirin [Low Dose Aspirin EC] 81 mg PO QDAY 03/31/19 Amiodarone HCl [Cordarone] 200 mg PO TID #90 tab 04/02/19 Atorvastatin Calcium [Lipitor] 80 mg PO QHS #90 tab 04/02/19 Carvedilol [Coreg (Beta [place])] 3.125 mg PO BID #90 tab 04/02/19 Losartan Potassium [Cozaar] 12.5 mg PO DAILY #90 tab 04/02/19 Ticagrelor [Brilinta] 90 mg PO BID #90 tab 04/02/19 Following Prescrptions Were Given to Patient: Ticagrelor [Brilinta] 90 mg PO BID #90 tab Transmission Status: Received by [address] Amiodarone HCl [Cordarone] 200 mg PO TID #90 tab Transmission Status: Received by [address] Carvedilol [Coreg (Beta Regina)] 3.125 mg PO BID #90 tab Transmission Status: Received by [address] Losartan Potassium [Cozaar] 12.5 mg PO DAILY #90 tab Transmission Status: Received by [address] Atorvastatin Calcium [Lipitor] 80 mg PO QHS #90 tab Transmission Status: Received by [address] Primary Care Physician: Leonarda Smith DO [Primary Care Provider] - Please follow up with your Primary Care Physician in: 1 week. Please Follow Up With: Juanito Cope NP-C When: 2-3 weeks. Patient Instructions: Amiodarone Hydrochloride Oral tablet, Heart Attack Disposition: Home Minutes spent on discharge:: 32 Patient Condition:: Stable Medical Necessity - Tobacco Use Smoking Status: Former smoker Meaningful Use Info Meaningful Use Diagnoses (Choose all that apply): AMI - AMI Aspirin given w/in 24hrs of arrival?: Yes ASA at discharge?: Yes Statins at discharge?: Yes Kenny/ARB at discharge?: Yes Beta Regina at discharge?: Yes Done w/ Acute [place] measure.: Yes Documented LVEF (%): 35 Code Visit Inpatient E&M: 44359 Disch Hosp
== END 2019-04-02 09:45 | disposition home or self-care (01) | DRG 246 ==
PROVIDERS: Internal Medicine; Internal Medicine Cardiovascular Disease; Admitting Provider Hospitalist; Family Provider Family Medicine; PCP Family Medicine; Referring Provider Internal Medicine Cardiovascular Disease; Visit Provider Hospitalist
DX: I97.190 Other postprocedural cardiac functional disturbances following cardiac surgery (principal); I21.A9 Other myocardial infarction type; T82.867A Thrombosis due to cardiac prosthetic devices, implants and grafts, initial encounter; I50.22 Chronic systolic (congestive) heart failure; I47.2 Ventricular tachycardia; T82.855A Stenosis of coronary artery stent, initial encounter; I11.0 Hypertensive heart disease with heart failure; Z87.74 Personal history of (corrected) congenital malformations of heart and circulatory system; E78.5 Hyperlipidemia, unspecified; Z95.1 Presence of aortocoronary bypass graft; I25.10 Atherosclerotic heart disease of native coronary artery without angina pectoris
CPT/HCPCS: 80048; 80053; 80076; 84436; 84439; 84443; 84481; 84484; 85027; 85347; 92921; 92928; 92941; 92978; 93005; 93306; 93458; 97161; 97166; J7030; J7040; Q9957; Q9967; A4216; C1725; C1753; C1757; C1769; C1874; C1887; C8929; C9600; C9606; J1327

== ENCOUNTER → 2019-04-15 12:30 | Outpatient (CLI) | payer OTHER, MEDICARE, SELFPAY ==
[2019-03-31 01:01] VITALS: BMI 32.5
--- NOTE | 2019-04-15 12:53 | CR.ITP_ITS ---
General Information - General Information Admitting Diagnosis: STEMI, PCI - Education/Goals Barriers to Learning: None, Vision Impairment - wears glasses Individual Counseling: Initial Assessment: Abnormal Cholesterol Levels, High Blood Pressure, Overweight/Obesity, B. Waist Circumference >35/Females >40/Males, Hypertension, Family History of Heart Disease (under 65 years) Cardiac Rehabilitation Goals: 1. Maintain the individual as the primary focus of care. 2. To improve the patient's quality of life. 3. Identification of cardiac risk factors and provide cardiac risk factor management. 4. Enhance the psychosocial status of the patient. 5. Reconditioning enough to allow the patient to resume customary activities. 6. Control symptoms of cardiac disease Scale for measuring improvement of personal goals: Enter appropriate number in Comments. 2 = Unchanged. 3 = Slightly Better. 4 = Moderate Improvement. 5 = Met my Goal Personal Goals: Initial Assessment: Improve energy level, Participate in home exercise program, Get back to work, or to resume activities faster, Improve knowledge of cardiac disease, Improve muscle strength and endurance, Improve diet and eating habits (eat healthier), Control risk factors (learn risk factor modification) Exercise - Initial Assessment - Visit Date of Eval: 04/15/19 - Stages of Change Stages of Change:: Action - Physician Prescribed Exercise Modalities: Treadmill, Biodyne, Rower, Airdyne, NuStep, SciFit Frequency (days/week): 3x/week for 12 weeks [36 sessions] Duration (Minutes):: 35-40 min Intensity: 60-80% age predicted maximum heart rate reserve METs - Progression: 0.5-1.0 MET, RPE 11-14 WEEK: 0.5-1.0 Target Heart Rate:: 95-124 - Hypertension Do any of the following apply?: Yes - Intervention Home Exercise/Activity Goal:: Sitting Time <3 hrs/day - Education Goals:: Warm-up, RPE YVETTE Scale, S/S, Safe Exercise, Self-Monitoring - Exercise Program Goals Exercise Program Goals: Aerobic Activity >30 min Nutrition - Initial Assessment - Program Goals Nutrition Program Goals: LDL <70. Total Cholesterol <200. HDL >45. Tri glycerides <150. HgbA1C <7%. BMI <25 - Visit Date of Assessment:: 04/15/19 - Stages of Change Stages of Change:: Action - Lipids Lipid Medication: yes - Weight Management Height: 5 ft 8 in Weight:: 210 lb Weight Goal (kg):: 180 lb Body Fat %:: 31.9 - Intervention Referral to dietitian:: Yes Referral to Diabetic Clinic:: No Will attend diet classes:: No - Education Gave educational materials for:: Healthy eating Tobacco - Initial Assessment - Program Goals Tobacco Program Goals: Complete smoking cessation. Attend education classes. Improve Knowledge Test score - Stage of Change Stages of Change:: Maintenance - Learning Barriers Learning Barriers: Vision - wears glasses Total Score:: 18 - Family Support Do you have family support?: Yes - Tobacco Use Tobacco Use: Non-smoker How long ago did you quit using tobacco products?: Greater than or equal to 6 months ago Do you use smokeless tobacco?: No - Intervention Smoking Cessation Referral:: No Individual Education/Counseling:: No Education Schedule Given:: Yes - Education Attended class for:: Treating Heart Disease, How The Heart Works, What it means to have Heart Disease, How Coronary Artery Disease is Diagnosed, Heart Procedures, What Heart Medications Do, Risk Factors & Modifications, Living an Active Life, Nutrition, Emotions & Heart Disease, Stress Management & Relaxation, Sleep Disorders & Heart Disease Psychosocial - Initial Assess - Target Goals Target Goals: Assess presence or absence of depression. Using a valid screening tool, maximizes coping skills. Positive support system - Stages of Change Stages of Change:: Action - Psychosocial Test Tool Used:: HANDS Depression Questionnaire Self-reported stress:: no Tests Completed: SF - 36 survey completed, Mood Scale Test Total Mood Screening Score:: 2 Self-Efficacy Score:: 8 - Intervention PS - Interventions: Yes Attend Stress Management Classes, Yes Uses Stress Management Skills, No Referral to Mental Health, No Referral to [facility] Case Management, No Referral to Physician - Education Gave educational materials for:: Coping techniques, Signs & symptoms of d epression, Stress management, Relaxation techniques - Patient/Program Goal Preventative Medication(s):: Aspirin, DILLON inhibitor, Clopidogrel, Beta remberto, Statin/lipid - Assistive Devices Assistive Devices:: None Fall Risk Assessed:: Yes Patient Health Questionnaire Initial Assessment 1. Little interest or pleasure in doing things: Not at all 2. Feeling down, depressed, or hopeless: Not at all 3. Trouble falling or staying asleep, or sleeping too much: Not at all 4. Feeling tired or having little energy: More than half the days 5. Poor appetite or overeating: Not at all 6. Feeling bad about yourself -- or that you are a failure or have let yourself or your family down: Not at all 7. Trouble concentrating on things, such as reading the newspaper or watching television: Not at all 8. Moving or speaking so slowly that other people could have noticed. Or the opposite - being so fidgety or restless that you have been moving around a lot more than usual: Not at all 9. Thoughts that you would be better off , or of hurting yourself in some way: Not at all How difficult have these problems made it for you to do your work, take care of things at home, or get along with other people?: Not difficult at all Total Score: 2 LEELA-Q SV Test - Statements CAD is a disease of the arteries in the heart: True Examples of risk factors for heart disease: True Angina is chest pain or discomfort: True The benefits of resistance training include: True Eating more meat and dairy products: False Anti-platelet medications such as aspirin are important: True The only effective way to manage stress: False An exercise warm-up slowly increases heart rate: True Prepared, processed foods usually have high sodium: True Depression is common after a heart attack: True The statin medications lower cholesterol: True To control blood pressure, lower the amount of sodium: True If someone gets chest discomfort during walking: False Transfats are partially hydrogenated vegetable oils: True Sleep apnea that is not treated increases the risk: False To control cholesterol, one should become a vegetarian: True Someone knows if he/she is exercising at the right level: True Diabetes cannot be prevented with exercise & health eating: False Stress is a large risk for heart attack: True A diet that can help lower blood pressure is rich in: True - Total Score Total Correct Responses: 18 Self-Efficacy Initial Assessment We would like to know how confident you are in doing certain activities. Please select your confidence level for:: Select your confidence level for the following using the scale 1-10 where 1 is not at all confident and 10 is totally confident. Your score is the average of all 6 responses. Fatigue: How confident are you that you can keep the fatigue caused by your disease from interfering with the things you want to do? Select Number: 7 Physical Discomfort or Pain: How confident are you that you can keep the physical discomfort or pain of your disease from interfering with the things you want to do? Select Number: 7 Emotional Distress: How confident are you that you can keep the emotional distress caused by your disease from interfering with the things you want to do? Select Number: 9 Other Symptoms or Health Problems: How confident are you that you can keep other symptoms or health problems from interfering with the things you want to do? Select Number: 8 Different Tasks and Activities: How confident are you that you can do the different tasks and activities needed to manage your health condition so as to reduce your need to see a doctor? Select Number: 9 Medication: How confident are you that you can do things other than just taking medication to reduce how much your illness affects your everyday life? Select Number: 9 Total Score:: 8 Nutrition Survey - Nutrition Survey Instructions Scoring Instructions: Scoring is as follows: Yes = 1 points. No = 0 point. Patient score that is >/=12 is considered to be at potential nutritional risk and could benefit from a referral to a registered dietitian. - Nutrition Survey Initial Have you lost >10 lbs over the past 2 months without trying?: No Are you following a special diet at home for diabetes, low fat, or low salt?: Yes Are you interested in meeting with a dietitian for help understanding your diet?: Yes Do you eat less than 3 meals a day?: No Do you eat fatty meats (marcial, sausage, ribs, etc), fried foods, desserts, large amounts of salad dressings, margarine, butter, or cheese most days?: No Do you have food allergies? [Enter types in comment field]: No Do you eat in restaurants more than 3 times a week?: No Do you season food with salt, seasoning salt, or garlic salt?: No Do you used canned, boxed, frozen meals, or soups, seasoning packets?: No Total Score:: 2
--- NOTE | 2019-04-15 13:13 | PCM.CR.HP2 ---
CR - History & Physical - General Arrival date:: 04/15/19 Arrival time:: 13:14 Date of Referral:: 03/30/19 Date of CR Evaluation:: 04/15/19 Referring Physician: Dr. Jasmin Alberts Primary Diagnosis: PCI with stent, STEMI - History of Present Cardiac Event Onset Date: Enter Onset Date of cardiac illnesses in Comment field below Current stable Angina Pectoris:: No Acute Myocardial Infarction within 12 months:: Yes Coronary Artery Bypass Graft:: No Heart valve replacement or repair:: No PTCA or coronary stenting:: Yes Heart or Heart-Lung Transplant:: No Heart Failure EF <35%:: Yes - 35% Type of Symptoms:: Left back, shoulder and arm pain. Interventions with present event:: PCI Were there any complications?: no - Medications Home Medications: Ambulatory Orders Medication Instructions Recorded nitroglycerin 0.4 mg sublingual 0.4 mg SUBLINGUAL Q5M PRN 06/21/17 tablet garlic 1,000 mg capsule 1,000 mg PO DAILY cap 03/06/19 Ubidecarenone [Co Q-10] 30 mg PO DAILY 03/26/19 Aspirin [Low Dose Aspirin EC] 81 mg PO QDAY 03/31/19 Amiodarone HCl [Cordarone] 200 mg PO TID #90 tab 04/02/19 Atorvastatin Calcium [Lipitor] 80 mg PO QHS #90 tab 04/02/19 Carvedilol [Coreg (Beta [place])] 3.125 mg PO BID #90 tab 04/02/19 Losartan Potassium [Cozaar] 12.5 mg PO DAILY #90 tab 04/02/19 Ticagrelor [Brilinta] 90 mg PO BID #90 tab 04/02/19 - Allergies Allergies/Adverse Reactions: Allergies Penicillins [PCN] Allergy (Mild, Verified 03/06/19 08:29) Rash clopidogrel [From Plavix] Adverse Reaction (Intermediate, Verified 03/06/19 08:29) Burning sensation in arms and chest - Sleep Disorder Evaluation Hx of Sleep Apnea: No Do you snore loudly (louder than talking or can be heard through closed doors)?: No Do you often feel tired/ fatigued/ sleepy during daytime?: Yes Has anyone observed you stop breathing during sleep?: No History of Hypertension (for STOP score): Yes STOP Results: Positive Advanced Directives - Advanced Directives Power of Vegetable Loader: No Living Will: No Advance Directives Information Provided: Yes Advance Directives on File: No Past Medical History - Past Medical Illness Medical History: Past Medical History (Last Updated 04/01/19 @ 11:38 by Diamante Riley MD) Essential (primary) hypertension (Chronic) I10 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 Hyperlipidemia (Chronic) E78.5 Atrial septal defect (Chronic) Q21.1 Status post repair 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 All segments re-IVUSed at end of procedure which demostrated appropriate and complete stent apposition, no residual thombosis, and no edge dissections. Successful PTCA/MARY mid LCX with a 2.25 x 12 Promus Synergy to remove possible outflow obstruction that may have contributed to in stent thrombosis. Successful emergent PCI with PTCA to the mid OM#1 with a 2.0 x 12 Emerge balloon, unable to pass 2.5 x 20 stent despite ary wire; 85%-->30%, no dissection. Previously placed LM stent appeared to be adequately apposed but possibley underdeployed. Cannot exclude possible proximal edge dissection, so additional LM stent placed. 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 Social History - Smoking History Smoking Status: Former smoker Hx Tobacco Use: No Hx Smoking Exposure: No - Alcohol Use Alcohol Usage: No - Substance Abuse Hx Substance Use: No - Occupation Occupation (List type of work in comments):: Retired - Hobbies, Recreation, Social Activities Hobbies: Exercise - swimming, Other Recreational Activities: I am able to engage in most, but not all activities - being a messenger and connector. Social Environment - Status Marital Status: - Current Living Arrangements Living Environment:: Spouse - Children How many children do you have?: 4 Do any of your children live nearby?: Yes - Safety Do you feel safe in your surroundings?: Yes - Assistance Do you need any assistance at home?: no Review of Systems - Review of Systems Hints: Right click = Denies ([place]). Left click = Reports ([place]) Review of Present Symptoms: Reports: Shortness of Breath at Rest - some, Shortness of Breath with Exertion - improved but still feels something isn't right., Wound Healing, Fatigue, Appetite - Normal, Appetite - Special Diet, Sleep - Normal, Sexual Changes. Denies: PVD, Operative Discomfort, Angina, Dizziness/Lightheadedness, Heart Arrhythmia/Irregularities - Pain Is Patient Pain Free?: No Pain Location: upper extremity - some discomfort across upper back/shoulder areas Pain Level: 2/10 Previous experience dealing with pain?: Nitrostat Risk Factor Assessment - Vital Signs Pulse Ox: 94 - Pulse Pulse Rate: 57 Pulse Rhythm: Regular - Hypertension Blood Pressure Sitting - Right Arm: 184/90 Blood Pressure Sitting - Left Arm: 170/70 - Diabetes Nutrition Referral for Diabetes: No - Obesity Height: 5 ft 8 in Weight:: 210 lb Weight in Pounds: 210.0 lbs Body Mass Index (BMI): 31.9 Desired Body Weight: 180 Realistic Weight Goal (Loss of 1-2 lbs/week): 180 Nutritional Referral for Obesity: Yes - Physical Inactivity Physical Inactivity: Reg Exercise 30 min/day - Risk Stratification Risk Guidelines: Lowest Risk: Risk Factor for Smoking, Risk Factor for Diabetes, Risk Factor for Sedentary Lifestyle, Risk Factor for Depression, Moderate Risk: Risk Factor for Dyslipidemia, Risk Factor for Obesity, Highest Risk: Risk Factor for Hypertension - For Smoking Smoking Risk Guidelines: Smoking Low Risk: None or quit greater than 6 months ago. Smoking Moderate Risk: Smoker or quit 6 months or less ago. Smoking High Risk: Smoker - For Dyslipidemia Dyslipidemia Risk Guidelines: Low Risk: Moderate Risk: High Risk: 15-25% fat 25.1-29% fat >/= 30% fat. <7% sat fat 7-9% sat fat >9% sat fat. <150 mg chol 150-299 mg chol >/= 300 mg chol. LDL <100 LDL 100-129 LDL >/= 130. Chol/HDL ratio <5.0 Chol/HDL ratio 5.0-6.0 Chol/HDL ratio >6.0. Triglycerides <100 Triglycerides 100-149 Triglycerides >/= 150 - For Diabetes Mellitus Diabetes Risk Guidelines: Diabetes Low Risk: HgA1c <6.5% and/or FBG <120. Diabetes Moderate Risk: HgA1c 6.6-7.9% and/or FBG 120-180. Diabetes High Risk: HgA1c >/= 8% and/or FBG >180 - For Obesity/Overweight Obesity/Overweight Risk Guidelines: Obesity Low Risk: BMI <25.0. Obesity Moderate Risk: BMI 25-29.9. Obesity High Risk: BMI >/= 30.0 - For Hypertension Hypertension Risk Guidelines: Hypertension Low Risk: Systolic <120 and Diastolic <80. Hypertension Moderate Risk: Systolic 120-139 and Diastolic 80-89. Hypertension High Risk: Systolic >/= 140 and Diastolic >/= 90 - For Sedentary Lifestyle Sedentary Lifestyle Risk Guidelines: Sedentary Lifestyle Low Risk: >/= 1,500 kcal/week. Sedentary Lifestyle Moderate Risk: 700-1,499 kcal/week. Sedentary Lifestyle High Risk: < 700 kcal/week - For Depression Depression Risk Guidelines: Depression Low Risk: Not clinically depressed. Depression Moderate Risk: Mildly depressed. Depression High Risk: Clinically depressed Motivation - Motivation to Participate On a scale of 1 to 10, how prepared are you to commit to attending program?: 10
[2019-04-15 13:42] VITALS: BP 170/70; BP 184/90; PULSE 57; O2SAT 94; BMI 31.9
== END ==
PROVIDERS: Family Provider Family Medicine; PCP Family Medicine; Referring Provider Internal Medicine Cardiovascular Disease; Visit Provider Internal Medicine Cardiovascular Disease
DX: I25.810 Atherosclerosis of coronary artery bypass graft(s) without angina pectoris (principal); I10 Essential (primary) hypertension; E78.5 Hyperlipidemia, unspecified; Q21.1 Atrial septal defect; I49.3 Ventricular premature depolarization; I25.2 Old myocardial infarction; Z86.73 Personal history of transient ischemic attack (TIA), and cerebral infarction without residual deficits; Z95.1 Presence of aortocoronary bypass graft; Z79.82 Long term (current) use of aspirin; Z79.899 Other long term (current) drug therapy; Z87.891 Personal history of nicotine dependence

== ENCOUNTER → 2019-04-17 12:35 | Outpatient (CLI) | payer OTHER, MEDICARE, SELFPAY ==
[2019-04-17 11:14] VITALS: BMI 32.1
[2019-04-17 13:25] LABS: BNP,B-Type NATRIURETIC PEPTIDE 513.8 pg/mL (0-100)
== END ==
PROVIDERS: Family Provider Family Medicine; PCP Family Medicine; Referring Provider Nurse Practitioner Family; Visit Provider Nurse Practitioner Family
DX: I21.3 ST elevation (STEMI) myocardial infarction of unspecified site (principal)
CPT/HCPCS: 36415; 83880

== ENCOUNTER → 2019-04-24 14:55 | Outpatient (CLI) | payer OTHER, MEDICARE, SELFPAY ==
[2019-04-17 11:14] VITALS: BMI 32.1
[2019-04-24 16:39] LABS: Anion Gap 7 (5-15); BUN 28 mg/dL (7-18); BUN/Creat Ratio 15.7 RATIO (10-20); Calcium,Total 8.9 mg/dL (8.5-10.1); Chloride 104 mmol/L (98-107); Creatinine, Serum 1.78 mg/dL (0.70-1.30); EST Glomerular Filtration Rate 40 mL/min (>60); Est Glom Filt Rate - Afr Amer 48 mL/min (>60); Glucose 88 mg/dL (74-106); Potassium 3.9 mmol/L (3.5-5.1); Sodium Level 139 mmol/L (136-145)
== END ==
PROVIDERS: Family Provider Family Medicine; PCP Family Medicine; Referring Provider Nurse Practitioner Family; Visit Provider Nurse Practitioner Family
DX: I25.810 Atherosclerosis of coronary artery bypass graft(s) without angina pectoris (principal); Z95.1 Presence of aortocoronary bypass graft; I10 Essential (primary) hypertension; R06.09 Other forms of dyspnea
CPT/HCPCS: 36415; 80048

== ENCOUNTER 2019-05-20 14:15 | Outpatient (RCR) | payer OTHER, MEDICARE, SELFPAY ==
[2019-04-15 13:26] VITALS: BMI 31.9
[2019-04-17 11:14] VITALS: BMI 32.1
--- NOTE | 2019-05-17 09:34 | PCM.CR.ITP ---
Exercise - 30-day Assessment - Visit Date of Eval: 05/17/19 - Stages of Change Stages of Change:: Action - Physician Prescribed Exercise Modalities: Treadmill, Rower, NuStep Frequency (days/week): 3 Duration (Minutes):: 30-45 min Intensity: 60-80% age predicted maximum heart rate reserve METs - Progression: 0.5-1.0 MET, RPE 11-14 WEEK: 4 increased from 3.0 Target Heart Rate:: 95-124 max HR 101 RPE 12 - Hypertension Resting Blood Pressure:: 130/68 - lowest 110/78 Peak Exercise Blood Pressure:: 130/68 - highest 170/82 Medication Changes:: No - Intervention Home Exercise/Activity Goal:: Sitting Time <3 hrs/day - Education Goals:: Warm-up, RPE YVETTE Scale, S/S, Safe Exercise, Self-Monitoring - Exercise Program Goals Exercise Program Goals: Aerobic Activity >30 min Nutrition - 30-Day Assessment - Program Goals Nutrition Program Goals: LDL <70. Total Cholesterol <200. HDL >45. Triglycerides <150. HgbA1C <7%. BMI <25 - Visit Date of Eval: 05/17/19 - Stages of Change Stages of Change:: Action - Lipids Has the patient seen the dietitian?: No - Diabetes Diabetes:: No - Weight Management Weight:: 212 lb - increased 4 piunds this 30-days - Intervention Referral to dietitian:: No Referral to Diabetic Clinic:: No Will attend diet classes:: Yes - Education Attended class for:: Healthy eating Tobacco - Initial Assessment - Program Goals Tobacco Program Goals: Complete smoking cessation. Attend education classes. Improve Knowledge Test score - Learning Barriers Learning Barriers: Vision - wears glasses Tobacco - 30-Day Assessment - Program Goals Tobacco Program Goals: Complete smoking cessation. Attend education classes. Improve Knowledge Test score - Stage of Change Stages of Change:: Action - Learning Barriers Learning Barriers: Participates in education, Change in behavior - Family Support Do you have family support?: Yes - Tobacco Use Tobacco Use: Non-smoker - Intervention Smoking Cessation Referral:: No Individual Education/Counseling:: No Education Schedule Given:: Yes - Education Attended class for:: What it means to have Heart Disease, How Coronary Artery Disease is Diagnosed, Heart Procedures, What Heart Medications Do, Risk Factors & Modifications, Living an Active Life Psychosocial - Initial Assess - Target Goals Target Goals: Assess presence or absence of depression. Using a valid screening tool, maximizes coping skills. Positive support system - Psychosocial Test Tool Used:: HANDS Depression Questionnaire - Assistive Devices Fall Risk Assessed:: Yes Psychosocial - 30-Day Assess - Target Goals Target Goals: Assess presence or absence of depression. Using a valid screening tool, maximizes coping skills. Positive support system - Stages of Change Stages of Change:: Action - Psychosocial Test Tool Used:: HANDS Depression Questionnaire - Intervention PS - Interventions: Yes Attend Stress Management Classes, Yes Uses Stress Management Skills, No Referral to Mental Health, No Referral to [facility] Case Management, No Referral to Physician - Education Attended classes for:: Coping techniques, Signs & symptoms of depression, Stress management, Relaxation techniques - Patient/Program Goal Preventative Medication(s):: Aspirin, DILLON inhibitor, Clopidogrel, Beta remberto, Statin/lipid - patient reports taking medications as prescribed. - Assistive Devices Assistive Devices:: None Patient Health Questionnaire 30-Day Re-eval Assessment 1. Little interest or pleasure in doing things: Not at all 2. Feeling down, depressed, or hopeless: Not at all 3. Trouble falling or staying asleep, or sleeping too much: Not at all 4. Feeling tired or having little energy: Several days 5. Poor appetite or overeating: Not at all 6. Feeling bad about yourself -- or that you are a failure or have let yourself or your family down: Not at all 7. Trouble concentrating on things, such as reading the newspaper or watching television: Not at all 8. Moving or speaking so slowly that other people could have noticed. Or the opposite - being so fidgety or restless that you have been moving around a lot more than usual: Not at all 9. Thoughts that you would be better off , or of hurting yourself in some way: Not at all How difficult have these problems made it for you to do your work, take care of things at home, or get along with other people?: Not difficult at all Total Score: 1 Self-Efficacy 30-Day Re-eval Assessment We would like to know how confident you are in doing certain activities. Please select your confidence level for:: Select your confidence level for the following using the scale 1-10 where 1 is not at all confident and 10 is totally confident. Your score is the average of all 6 responses. Fatigue: How confident are you that you can keep the fatigue caused by your disease from interfering with the things you want to do? Select Number: 7 Physical Discomfort or Pain: How confident are you that you can keep the physical discomfort or pain of your disease from interfering with the things you want to do? Select Number: 8 Emotional Distress: How confident are you that you can keep the emotional distress caused by your disease from interfering with the things you want to do? Select Number: 9 Other Symptoms or Health Problems: How confident are you that you can keep other symptoms or health problems from interfering with the things you want to do? Select Number: 9 Different Tasks and Activities: How confident are you that you can do the different tasks and activities needed to manage your health condition so as to reduce your need to see a doctor? Select Number: 9 Medication: How confident are you that you can do things other than just taking medication to reduce how much your illness affects your everyday life? Select Number: 9 Total Score:: 8
[2019-05-17 09:40] VITALS: BP 130/68
== END 2019-05-21 23:59 ==
LOC: CR 14:15
PROVIDERS: Family Provider Family Medicine; PCP Family Medicine; Referring Provider Internal Medicine Cardiovascular Disease; Visit Provider Internal Medicine Cardiovascular Disease
DX: I25.810 Atherosclerosis of coronary artery bypass graft(s) without angina pectoris (principal); Z95.5 Presence of coronary angioplasty implant and graft; Z95.1 Presence of aortocoronary bypass graft
CPT/HCPCS: 93798

== ENCOUNTER → 2019-05-29 14:56 | Outpatient (CLI) | payer OTHER, MEDICARE, SELFPAY ==
[2019-04-17 11:14] VITALS: BMI 32.1
[2019-05-29 15:52] LABS: Anion Gap 4 (5-15); BUN 20 mg/dL (7-18); BUN/Creat Ratio 14.7 RATIO (10-20); Calcium,Total 8.6 mg/dL (8.5-10.1); Chloride 106 mmol/L (98-107); Creatinine, Serum 1.36 mg/dL (0.70-1.30); EST Glomerular Filtration Rate 54 mL/min (>60); Est Glom Filt Rate - Afr Amer 66 mL/min (>60); Glucose 78 mg/dL (74-106); Potassium 4.5 mmol/L (3.5-5.1); Sodium Level 139 mmol/L (136-145)
== END ==
PROVIDERS: Family Provider Family Medicine; PCP Family Medicine; Referring Provider Physician Assistant Medical; Visit Provider Physician Assistant Medical
DX: R60.9 Edema, unspecified (principal)
CPT/HCPCS: 36415; 80048

== ENCOUNTER → 2019-06-12 07:42 | Outpatient (CLI) | payer OTHER, MEDICARE, SELFPAY ==
[2019-04-17 11:14] VITALS: BMI 32.1
[2019-06-12 08:30] LABS: AST(SGOT) 32 U/L (15-37); Alanine Aminotransfer ALT/SGPT 40 U/L (16-61); Albumin, Serum 3.7 g/dL (3.2-5.0); Alkaline Phosphatase 97 U/L (45-117); Bilirubin, Direct 0.24 mg/dL (0.00-0.30); Cholesterol 130 mg/dL (200); Globulin 3.7 g/dL (2.2-4.2); High Density Lipoprotein 48 mg/dL; Protein, Total 7.4 g/dL (6.4-8.2); Triglycerides 61 mg/dL; Very Low Density Lipoprotein 12 mg/dL (5-40)
== END ==
LOC: LAB 07:44
PROVIDERS: PCP Family Medicine; Referring Provider Physician Assistant Medical; Visit Provider Physician Assistant Medical
DX: E78.5 Hyperlipidemia, unspecified (principal)
CPT/HCPCS: 36415; 80061; 80076

== ENCOUNTER 2019-06-21 14:15 | Outpatient (RCR) | payer OTHER, MEDICARE, SELFPAY ==
[2019-04-17 11:14] VITALS: BMI 32.1
[2019-05-22 00:11] VITALS: BP 130/68
--- NOTE | 2019-06-14 08:13 | CR.ITP_ITS ---
Exercise - 60-Day Assessment - Visit Date of Eval: 06/14/19 Session #:: 21 - Stages of Change Stages of Change:: Action - Physician Prescribed Exercise Modalities: Treadmill, Rower, Airdyne, NuStep Frequency (days/week): 3 Duration (Minutes):: 30-45 Intensity: 60-80% of age predicted maximum heart rate reserve METs - Progression: 0.5-1.0 MET, RPE 11-14 WEEK: 4.5 increase from 4.0 Target Heart Rate:: 95-124 max HR 105 - Hypertension Resting Blood Pressure:: 122/80 Peak Exercise Blood Pressure:: 160/80 Medication Changes:: Yes - Brilinta changed to Plavix. - Intervention Home Exercise/Activity Goal:: Moderate Exercise 30 min/day x 5 days/wk - Education Goals:: Warm-up, RPE YVETTE Scale, S/S, Safe Exercise, Self-Monitoring - Exercise Program Goals Exercise Program Goals: Aerobic Activity >30 min Nutrition - 60-Day Assessment - Program Goals Nutrition Program Goals: LDL <70. Total Cholesterol <200. HDL >45. Triglycerides <150. HgbA1C <7%. BMI <25 - Visit Date of Eval: 06/14/19 - Stages of Change Stages of Change:: Action - Lipids Has the patient seen the dietitian?: No - Diabetes Diabetes:: No Insulin: No Non-Insulin Dependent?: No - Weight Management Weight:: 213 lb 8 oz - increase 1.5 pounds this 30-days. Lowest was 210, highest 214.5 - Intervention Referral to dietitian:: No Referral to Diabetic Clinic:: No Will attend diet classes:: Yes - Education Attended class for:: Healthy eating Tobacco - Initial Assessment - Program Goals Tobacco Program Goals: Complete smoking cessation. Attend education classes. Improve Knowledge Test score - Learning Barriers Learning Barriers: Vision - wears glasses Tobacco - 60-Day Assessment - Program Goals Tobacco Program Goals: Complete smoking cessation. Attend education classes. Improve Knowledge Test score - Stage of Change Stages of Change:: Action - Learning Barriers Learning Barriers: Participates in education - Family Support Do you have family support?: Yes - Tobacco Use Tobacco Use: Non-smoker Do you use smokeless tobacco?: No - Intervention Smoking Cessation Referral:: No Individual Education/Counseling:: No Education Schedule Given:: Yes - Education Attended class for:: Treating Heart Disease, Risk Factors & Modifications, Living an Active Life, Nutrition, Emotions & Heart Disease, Stress Management & Relaxation, Sleep Disorders & Heart Disease Psychosocial - Initial Assess - Target Goals Target Goals: Assess presence or absence of depression. Using a valid screening tool, maximizes coping skills. Positive support system - Psychosocial Test Tool Used:: HANDS Depression Questionnaire - Assistive Devices Fall Risk Assessed:: Yes Psychosocial - 60-Day Assess - Target Goals Target Goals: Assess presence or absence of depression. Using a valid screening tool, maximizes coping skills. Positive support system - Stages of Change Stages of Change:: Action - Psychosocial Test Tool Used:: HANDS Depression Questionnaire - Intervention PS - Interventions: Yes Attend Stress Management Classes, Yes Uses Stress Management Skills, No Referral to Mental Health, No Referral to [facility] Case Management, No Referral to Physician - Education Attended classes for:: Coping techniques, Signs & symptoms of depression, Stress management, Relaxation techniques - Patient/Program Goal Preventative Medication(s):: Aspirin - Patient compliant with medications., DILLON inhibitor, Clopidogrel, Beta remberto, Statin/lipid - Assistive Devices Assistive Devices:: None Fall Risk Assessed:: Yes Patient Health Questionnaire 60-Day Re-eval Assessment 1. Little interest or pleasure in doing things: Not at all 2. Feeling down, depressed, or hopeless: Not at all 3. Trouble falling or staying asleep, or sleeping too much: Not at all 4. Feeling tired or having little energy: Not at all 5. Poor appetite or overeating: Not at all 6. Feeling bad about yourself -- or that you are a failure or have let yourself or your family down: Not at all 7. Trouble concentrating on things, such as reading the newspaper or watching television: Not at all 8. Moving or speaking so slowly that other people could have noticed. Or the opposite - being so fidgety or restless that you have been moving around a lot more than usual: Not at all 9. Thoughts that you would be better off , or of hurting yourself in some way: Not at all How difficult have these problems made it for you to do your work, take care of things at home, or get along with other people?: Not difficult at all Total Score: 0 Self-Efficacy 60-Day Re-eval Assessment We would like to know how confident you are in doing certain activities. Please select your confidence level for:: Select your confidence level for the following using the scale 1-10 where 1 is not at all confident and 10 is totally confident. Your score is the average of all 6 responses. Fatigue: How confident are you that you can keep the fatigue caused by your disease from interfering with the things you want to do? Select Number: 8 Physical Discomfort or Pain: How confident are you that you can keep the physical discomfort or pain of your disease from interfering with the things you want to do? Select Number: 9 Emotional Distress: How confident are you that you can keep the emotional distress caused by your disease from interfering with the things you want to do? Select Number: 10 Other Symptoms or Health Problems: How confident are you that you can keep other symptoms or health problems from interfering with the things you want to do? Select Number: 9 Different Tasks and Activities: How confident are you that you can do the different tasks and activities needed to manage your health condition so as to reduce your need to see a doctor? Select Number: 10 Medication: How confident are you that you can do things other than just taking medication to reduce how much your illness affects your everyday life? Select Number: 10 Total Score:: 9
[2019-06-14 08:20] VITALS: BP 122/80; BP 160/80
== END 2019-06-21 23:59 ==
LOC: CR 14:15
PROVIDERS: Family Provider Family Medicine; PCP Family Medicine; Referring Provider Internal Medicine Cardiovascular Disease; Visit Provider Internal Medicine Cardiovascular Disease
DX: I25.810 Atherosclerosis of coronary artery bypass graft(s) without angina pectoris (principal); Z95.5 Presence of coronary angioplasty implant and graft; Z95.1 Presence of aortocoronary bypass graft
CPT/HCPCS: 93798

== ENCOUNTER → 2019-07-01 12:44 | Outpatient (CLI) | payer OTHER, MEDICARE, SELFPAY ==
[2019-06-17 15:50] VITALS: BMI 32.2
--- NOTE | 2019-07-01 12:45 | ECHOD_ITS ---
Reason For Study: CHF Procedure This was a 2D Doppler, Color Flow transthoracic echocardiogram. The exam was of adequate technical quality. Exam performed in department. Left Ventricle Normal LV size. Mild segmental systolic dysfunction (see wall motion). The estimated ejection fraction is 50 %. Anterio-Basal: Hypokinetic. Lateral-Basal: Hypokinetic. Posterior-Basal: Hypokinetic. Infero-Basal: Hypokinetic. Mid-Anterior : Hypokinetic. Mid-Lateral : Hypokinetic. Mid- Posterior: Hypokinetic. Mid-Inferior: Hypokinetic. Anterior Fonda : Hypokinetic. Inferior Fonda : Hypokinetic. Lateral Fonda : Hypokinetic. Right Ventricle Normal RV size. Normal systolic function. Atria Normal left atrium. Normal right atrium. No doppler evidence for ASD. Mitral Valve There is no mitral annular calcification. Mild focal mitral valve calcification of the posterior leaflet. Mild (1+) mitral valve insufficiency. Tricuspid Valve Normal tricuspid valve. Trivial tricuspid valve insufficiency. Right ventricular systolic pressure estimated to be 27 mmHg. Aortic Valve Trisinus/trileaflet aortic valve. Mild diffuse aortic valve thickening. Mild focal aortic valve calcification. Aortic sclerosis, no stenosis. Trivial aortic valve insufficiency. Pulmonic Valve The pulmonic valve is not well visualized. Trivial pulmonic valve insufficiency. Great Vessels Normal sized aortic root. Pericardium/Pleural No pericardial effusion. MMode/2D Measurements & Calculations LVIDd: 5.5 cm IVSd: 1.1 cm Ao root diam: 3.4 cm LVIDs: 4.4 cm LVPWd: 1.0 cm RVDd: 4.0 cm FS: 20.3 % LAV(MOD-bp): 67.5 ml LVAd ap4: 35.0 cm2 SV(MOD-sp4): 59.1 ml LAV(MOD-bp) Indexed: 32.3 ml/m2 EDV(MOD-sp4): 119.5 ml LAV(MOD-sp2): 70.4 ml EDV(sp4-el): 122.0 ml LAV(MOD-sp4): 56.4 ml LVAs ap4: 22.8 cm2 ESV(MOD-sp4): 60.4 ml ESV(sp4-el): 60.9 ml EF(MOD-sp4): 49.5 % EF(sp4-el): 50.1 % SV(sp4-el): 61.1 ml LA A4 area: 19.4 cm2 LA dimension(2D): 4.9 cm RA A4 area: 10.5 cm2 Doppler Measurements & Calculations MV E max roger: 94.2 cm/sec Lat Peak E' Roger: 3.4 cm/sec Med Peak E' Roger: 2.5 cm/sec MV A max roger: 37.5 cm/sec E/E' lat: 28.1 E/E' med: 37.4 MV E/A: 2.5 Ao V2 max: 132.9 cm/sec LV V1 max: 101.3 cm/sec PA V2 max: 112.7 cm/sec Ao max P.1 mmHg LV V1 max P.1 mmHg Ao V2 mean: 89.5 cm/sec Ao mean P.6 mmHg Ao V2 VTI: 28.9 cm TR max roger: 243.3 cm/sec TR max P.7 mmHg Interpretation Summary Mild segmental systolic dysfunction (see wall motion). The estimated ejection fraction is 50 %. Mild focal mitral valve calcification of the posterior leaflet. Mild (1+) mitral valve insufficiency. Trivial tricuspid valve insufficiency. Aortic sclerosis, no stenosis. Trivial aortic valve insufficiency. Trivial pulmonic valve insufficiency. Right ventricular systolic pressure estimated to be 27 mmHg. Transmitral diastolic flow velocities suggest diastolic dysfunction (pseudonormal pattern). Ordering Physician: Juanito Cope Referring Physician: Luis Performed By: Cindy Cope, ALL, RVT
== END ==
PROVIDERS: PCP Family Medicine; Referring Provider Nurse Practitioner Family; Visit Provider Nurse Practitioner Family
DX: I11.0 Hypertensive heart disease with heart failure (principal); I50.9 Heart failure, unspecified; I25.810 Atherosclerosis of coronary artery bypass graft(s) without angina pectoris; Q21.1 Atrial septal defect; E78.5 Hyperlipidemia, unspecified; I25.2 Old myocardial infarction; Z95.1 Presence of aortocoronary bypass graft; Z95.5 Presence of coronary angioplasty implant and graft
CPT/HCPCS: 93306

== ENCOUNTER 2019-07-17 13:15 | Outpatient (RCR) | payer OTHER, MEDICARE, SELFPAY ==
[2019-06-17 15:50] VITALS: BMI 32.2
[2019-06-22 00:21] VITALS: BP 122/80; BP 160/80
--- NOTE | 2019-07-15 08:34 | CR.ITP_ITS ---
Diagnosis - General Information Admitting Diagnosis: PCI W/CORONARY STENT Personal Learning Style:: Audio/Visual Barriers to Learning: Hearing Impairment, Vision Impairment Stage of change r/t lifestyle modifications:: Action Gave educational material for:: Treating Heart Disease, Emotions & Heart Disease, Stress Management & Relaxation, Sleep Disorders & Heart Disease, How The Heart Works, What it means to have Heart Disease, How Coronary Artery Disease is Diagnosed, Heart Procedures, What Heart Medications Do, Risk Factors & Modifications, Living an Active Life, Nutrition - Education/Goals Individual Counseling: Initial Assessment: Abnormal Cholesterol Levels, High Blood Pressure, Overweight/Obesity Cardiac Rehabilitation Goals: 1. Maintain the individual as the primary focus of care. 2. To improve the patient's quality of life. 3. Identification of cardiac risk factors and provide cardiac risk factor management. 4. Enhance the psychosocial status of the patient. 5. Reconditioning enough to allow the patient to resume customary activities. 6. Control symptoms of cardiac disease Personal Goals: Initial Assessment: Improve energy level, Improve knowledge of cardiac disease, Improve muscle strength and endurance, Improve diet and eating habits (eat healthier), Control risk factors (learn risk factor modification) Scale for measuring improvement of personal goals: Enter appropriate number in Comments. 2 = Unchanged. 3 = Slightly Better. 4 = Moderate Improvement. 5 = Met my Goal - Diagnosis & Disease Process Outcomes/Goals: Pt IDs own risk factors & lifestyle modifications by Session 10, Verbalizes symptoms of angina & response by session 3., Pt independently manages Plan/Interventions: Assist Pt to ID & engage in lifestyle modification to reduce CVD risk, Instruct on individual risk factors, Review symptoms of angina & emergency actions, Review secondary diagnosis & identify educational needs. 30 day Reassessments:: Progressing 30 day Reassessments:: Progressing 30 day Reassessments:: Progressing 30 day Reassessments:: Met Exercise - 90-day Assessment - Visit Date of Eval: 07/15/19 Session #:: 33 - Physician Prescribed Exercise Modalities: Treadmill, Rower, NuStep Frequency: 3x/week for 12 weeks [36 sessions] Intensity: 60-80% of age predicted maximum heart rate reserve Current METSs:: 4.5 Target Heart Rate:: 95-124 Current RPE:: 12-13 Maximum Excercise HR:: 93 Resting Blood Pressure: 112/50 Maximum Exercise Blood Pressure: 158/76 EKG Type: SB TO SR W/ BBB OCCASIONAL PACs. - Outcomes & Goals Goals:: Verbalizes understanding of THR, RPE & goal METS by session 6, Documents in home exercise log/reports 30 min aerobic 5 day/wk by DC, Demonstrates accurate pulse taking by DC - Intervention & Plan Exercise Program Goals: Instruct on personal THR & RPE, Instruct on MET level & personal MET goal, Show patient to take own pulse /validate performance until accurate, Instruct on home exercise - 30-day Reassessments 30 day Reassessments:: Met - Physical Activity Home Exercise Physical Activity - Home Exercise: Safe Exercise, Warm-up, Self-monitoring, Cool-Down, Home Exercise > 30 min Daily, Sitting Time <3 hours/daily - Outcomes & Goals Outcomes/Goals: Demonstrates correct Warm-up/exercise Cool-Down (S3) if = 2.5 METs, Verbalizes symptoms of exercise intolerance by Session 3 (S3), Demonstrate safe equipment use (S3) & follows exercise prescrition (6) - Intervention & Plan Plan/Intervention: Instruct warm-up & cool-down if exercising at > 2 METs, Instruct on symptoms of exercise intolerance & actions to take, Instruct & monitor on saf, Assess intial functional capacity & safety risk - 30-day Reassessments 30 day Reassessments:: Met Nutrition - 90-Day Assessment - Program Goals Nutrition Program Goals: LDL <100 optimal. 100 - 129 Near optimal. 130 - 159 Borderline High. 160 - 189 High. Total Cholesterol <200 desirable. 200 - 239 Borderline High. >/= 240 High. HDL < 40 Low >/=60 High. Triglycerides <150 desirable. <199 optimal. VlDL 5 - 40. HgbA1C <7%. BMI <25 Patient has diagnosis of Hyperlipidemia (ICD E78)?: Yes - Visit Date of Assessment:: 07/15/19 Session #:: 33 - Cholesterol/Lipids Triglycerides (mg/dL): 0 - NOT AVAILABLE Determine presence & major risk factors that modify LDL goal: Hypertension or hypertensive medication, Family history of premature CHD in Male < 55 years: female <65 yearsFa, Age men > 45 years; women >/= 55 years Outcomes/Goals: Pt IDs own risk factors & lifestyle modifications by Session 10, Verbalizes symptoms of angina & response by session 3., Pt independently manages Intervention/Plan: Instruct on personal lipid levels & lipid goals/NCEP guidelines, Instruct on cholesterol Referral to dietitian:: No - PATIENT DECLINED 30-day Reassessments:: Progressing - Diabetes (Other Core Measures) Diabetes Type: Not Applicable - Weight Mgt (Other Care) Not Applicable: No Height: 5 ft 8 in Weight:: 214 lb BMI: 32.5 Diagnosis Overweight/Obesity BMI> 30% ICD-10 E66: Yes Diagnosis High BMI/Morbid Obesity BMI> 35% ICD-10 Z68: No Outcomes/Goals: Pt sets, maintains & shows weight loss goal & trend during rehab Intervention/Plan: Instruct on ideal BMI & set weight loss goal w/patient, Assist pt to ID & incorporate diet changes for weight loss by S9, Encourage goal of using 250-300dcal per session for weight loss 30 day Reassessments:: Not Met - Healthy Eating Habits Will attend diet classes:: Yes Outcomes/Goals:: Consume diet rich in vegs,fruits,whole grain/high fiber,fish,lean meat, Limit sat/trans fats,cholesterol & added salts & sugars Intervention/Plan:: Assess current eating habits 30-day Reassessments:: Progressing - Education Gave educational materials for:: Healthy eating Medical- 90-Day Assessment - Visit Date of Eval: 07/15/19 - Medication Compliance Preventative Medication(s):: Aspirin, Ticagrelor/P2Y12 inhibitor, Statin/lipid, Beta remberto H/O mental health issues: depression, anxiety, or addiction?: No Doesn?t believe in the benefits of treatment?: No Believes medications are unnecessary or harmful?: No Has a concern about medication side effects?: No Expresses concern over the cost of medications?: No Outcomes/Goals: Verbalizes medications,desired effect & common side effects @ DC, Pt self-reports following medication regimen, Keeps card in wallet w/medications listed by DC Interventions/plans: Instruct on medication effects & side effects, Review medication list w/patient every two weeks, Instruct importance of taking meds as ordered & assist problem solving 30-day Reassessments:: Progressing - Tobacco Use Tobacco Use: Non-smoker - Hypertension Hypertension Diagnosis:: Hypertension ICD-10 I10 Resting Blood Pressure:: 112/50 [place] [employer] Hypertension Guidelines: [place] [employer] Hypertension Guidelines. Normal BP Less than 120/80. Elevated BP 120/80. Hypertension Stage 1: BP 130-139/80-89. Hypertesnion Stage 2: BP 140 or higher/90 or higher. Hypertension Crisis: BP higher than 180/120 Peak Exercise Blood Pressure:: 158/76 Outcomes/Goals: Able to verbalize/achieve optimal blood pressure <130/80, Incorporates diet changes & exercise for blood pressure control by DC Interventions/plan: Instruct on optimal blood pressure, hypertension & medications, Instruct on effects of sodium, alcohol, stress, exercise &hypertension 30 day Reassessments:: Progressing - Tobacco Cessation Referral Smoking Cessation Referral:: No Education Schedule Given:: Yes Psychosocial - 90-Day Assess - VIsit Date of Eval: 07/15/19 Session #:: 33 Not Applicable: No History of previous Mental disease:: No - Target Goals Target Goals: Assess presence or absence of depression. Using a valid screening tool, maximizes coping skills. Positive support system - Psychosocial Test Tool Used:: Johnna Aguilar QOL Cardiac, PHQ-9 Questionnaire phq-9 Severity: Severity. 1-4 Minimal Depression. 5-9 Mild Depression. 10-14 Moderate Depression. 15-19 Moderately Sever Depression. 20-27 Severe Depression. Rule: - Referral to Behavioral Health PS - Interventions: Yes Attend Stress Management Classes, No Referral to [facility] if PHQ-9 score >9:, No Referral to [facility], No Referral to Physician if PHQ-9 if score is 5-9: - Outcomes/Goals: See list Psychosocial Outcomes/Goals:: ID's personal stressors & 2 strategies to manage stress by discharge - Intervention/Plan: See List Interventions/Plan:: Assess stressors,coping strategies & signs of derpression on admission, Instruct/assist pt to develop coping & personal stress Mgt strategies, Instruct patient to recognize signs & symptoms of depression, Instruct patient to recog - 30-day Reassessments: 30 day Reassessments:: Progressing Patient Health Questionnaire 90-Day Re-eval Assessment 1. Little interest or pleasure in doing things: Not at all 2. Feeling down, depressed, or hopeless: Not at all 3. Trouble falling or staying asleep, or sleeping too much: Several days 4. Feeling tired or having little energy: Several days 5. Poor appetite or overeating: Not at all 6. Feeling bad about yourself -- or that you are a failure or have let yourself or your family down: Not at all 7. Trouble concentrating on things, such as reading the newspaper or watching television: Not at all 8. Moving or speaking so slowly that other people could have noticed. Or the opposite - being so fidgety or restless that you have been moving around a lot more than usual: Not at all 9. Thoughts that you would be better off , or of hurting yourself in some way: Not at all How difficult have these problems made it for you to do your work, take care of things at home, or get along with other people?: Not difficult at all Total Score: 2 Self-Efficacy 90-Day Re-eval Assessment We would like to know how confident you are in doing certain activities. Please select your confidence level for:: Select your confidence level for the following using the scale 1-10 where 1 is not at all confident and 10 is totally confident. Your score is the average of all 6 responses. Fatigue: How confident are you that you can keep the fatigue caused by your disease from interfering with the things you want to do? Select Number: 8 Physical Discomfort or Pain: How confident are you that you can keep the physical discomfort or pain of your disease from interfering with the things you want to do? Select Number: 8 Emotional Distress: How confident are you that you can keep the emotional distress caused by your disease from interfering with the things you want to do? Select Number: 10 Other Symptoms or Health Problems: How confident are you that you can keep other symptoms or health problems from interfering with the things you want to do? Select Number: 9 Different Tasks and Activities: How confident are you that you can do the different tasks and activities needed to manage your health condition so as to reduce your need to see a doctor? Select Number: 10 Medication: How confident are you that you can do things other than just taking medication to reduce how much your illness affects your everyday life? Select Number: 10 Total Score:: 9
[2019-07-15 08:43] VITALS: BP 112/50; BP 158/76; BMI 32.5
== END 2019-07-20 23:59 ==
LOC: CR 13:15
PROVIDERS: Family Provider Family Medicine; PCP Family Medicine; Referring Provider Internal Medicine Cardiovascular Disease; Visit Provider Internal Medicine Cardiovascular Disease
DX: I25.810 Atherosclerosis of coronary artery bypass graft(s) without angina pectoris (principal); Z95.5 Presence of coronary angioplasty implant and graft; Z95.1 Presence of aortocoronary bypass graft
CPT/HCPCS: 93798

== ENCOUNTER → 2019-11-07 06:07 | Outpatient (CLI) | payer OTHER, MEDICARE, SELFPAY ==
[2019-07-15 08:43] VITALS: BMI 32.5
[2019-10-02 15:36] VITALS: BMI 31.9
--- NOTE | 2019-11-07 08:18 | STRESSREP ---
Stress Test Report Date: 11-07-2019 Procedure: Exercise tolerance test/imaging study Indications: Shortness of breath/dyspnea on exertion; CAD; PCI; CABG; PFO/ASD closure Consent: Per the patient Procedure: The patient exercised on a Adams protocol for 6 minutes completing Stage II achieving a peak heart rate of 121 bpm (83 % predicted maximal heart rate) with a peak blood pressure 180/90 mmHg and a peak MET capacity of 7 METs. The baseline ECG demonstrated sinus bradycardia; poor R wave progression. The peak exercise ECG demonstrated no obvious ECG changes. There were no cardiac dysrhythmias pretest, during exercise, or recovery. The functional capacity was considered average. There was no complaint of chest discomfort during exercise or recovery. The examination was discontinued secondary to dyspnea. Impression: 1. Technically adequate (percent predicted maximal heart rate greater than 85%) exercise tolerance test 2. Peak exercise ECG with no obvious ECG changes 3. There were no cardiac dysrhythmias pretest, during exercise, or recovery 4. Nuclear images pending Myocardial perfusion imaging study: Technique: The patient was injected with well 12.0 mCi of technetium 99m Cardiolite and subsequently rest SPECT Cardiolite nuclear imaging was obtained in the horizontal long, vertical long, and short axis views. The patient exercised on a Adams protocol for 6 minutes completing Stage II achieving a peak heart rate of 121 bpm (83 % predicted maximal heart rate) with a peak blood pressure 180/90 mmHg and a peak MET capacity of 7 METs. The patient was injected with 36.0 mCi of technetium 99m Cardiolite and subsequently stress SPECT Cardiolite nuclear imaging was obtained in the horizontal long, vertical long, and short axis views. A gated Cardiolite study at peak stress was obtained. Interpretation: Rest and stress SPECT Cardiolite nuclear imaging status post realignment, normalization, and attenuation correction, demonstrates the appearance of diminished tracer uptake in portions of the mid anterior segments at both rest and stress and status post stress areas of diminished tracer uptake in portions of the distal anterior segments. There is diminished end systolic thickening and brightening. The gated Cardiolite study demonstrates diminished myocardial thickening and inward wall motion. The reported LVEF is 41 %. Impression: 1. Rest and stress SPECT Cardiolite nuclear imaging demonstrate card perfusion changes appearing compatible with an area of previous myocardial injury/infarction in portions of the mid anterior wall with post stress myocardial perfusion changes appearing compatible with associated forest-infarct related myocardial ischemia in portions of the distal anterior wall. 2. The gated Cardiolite study reports an LVEF of 41 %. This note was generated with Might[employer]Text[employer] software. It may contain incorrect words, spelling, and punctuation that were not noted in checking the note before signing.
== END ==
LOC: CVS 06:08
PROVIDERS: PCP Family Medicine; Referring Provider Nurse Practitioner Family; Visit Provider Nurse Practitioner Family
DX: I25.810 Atherosclerosis of coronary artery bypass graft(s) without angina pectoris (principal); R06.02 Shortness of breath; R06.00 Dyspnea, unspecified; I10 Essential (primary) hypertension; E78.5 Hyperlipidemia, unspecified; Z95.1 Presence of aortocoronary bypass graft; Z95.5 Presence of coronary angioplasty implant and graft
CPT/HCPCS: 78452; 93017; A9500; A4216

== ENCOUNTER → 2019-11-11 10:15 | Outpatient (CLI) | payer OTHER, MEDICARE, SELFPAY ==
[2019-07-15 08:43] VITALS: BMI 32.5
[2019-10-02 15:36] VITALS: BMI 31.9
--- NOTE | 2019-11-11 10:30 | RAD_ITS ---
STUDY: X-RAY CHEST REASON FOR EXAM: Male, 74 years old. Pre-op for heart catheterization TECHNIQUE: PA and lateral views of the chest. COMPARISON: 03/15/2019 FINDINGS: The lungs are clear and expanded. There is no demonstrated pleural abnormality. Sternal cerclage wires and vascular clips are present from a prior sternotomy and coronary artery bypass graft procedure (CABG). Normal mediastinum and saulo. Normal visualized pulmonary arteries. Normal visualized aortic arch and descending thoracic aorta. Normal visualized thoracic spine. Normal visualized ribs, clavicles, and shoulders. There is no demonstrated abnormality of the visualized soft tissue structures of the upper abdomen. RAD/Chest PA and Lateral IMPRESSION: No acute pulmonary process Electronically Signed: Felipe Grant MD at 11:18 EDT , Service support ,
[2019-11-11 11:34] LABS: Absolute Lymphocyte Count 0.96 X10^3/uL (0.83-4.51); Absolute Neutrophil Count 5.5 X10^3/uL (2.0-7.7); Basophil# 0.03 X10^3/uL; Basophil% 0.4 % (0-1); Eosinophil# 0.22 X10^3/uL; Eosinophils% 2.9 % (0-5); Hematocrit 44.1 % (40-54); Hemoglobin 14.1 g/dL (13.0-16.5); Lymphocyte # 0.96 X10^3/ul (4.0); Lymphocyte % 12.6 % (19-41); Mean Corpuscular Hgb 34.2 pg (27.0-32.0); Mean Platelet Vol. 11.1 fl (6.2-12.0); Monocyte# 0.87 X10^3/uL; Monocyte% 11.4 % (0-10); NRBC Flagged by Analyzer 0 % (0-5); Neutrophil # 5.51 X10^3/uL (2.7-7.7); Platelet Count 238 K/mm3 (150-450); RBC Distribution Width CV 12.5 % (11.6-14.6); RBC Distribution Width SD 49.3 fl (35.1-43.9); Red Blood Count 4.12 M/mm3 (4.6-6.2); White Blood Count 7.6 K/mm3 (4.4-11.0)
[2019-11-11 11:43] LABS: International Normalized Ratio 1.1; Partial Thromboplast Time 27.1 Seconds (24.1-36.2); Prothrombin Time (Protime)PT. 13.4 SECONDS (11.7-14.9)
[2019-11-11 11:50] LABS: BUN 16 mg/dL (7-18); Creatinine, Serum 1.33 mg/dL (0.70-1.30); EST Glomerular Filtration Rate 56 mL/min (>60); Glucose 95 mg/dL (74-106)
[2019-11-11 11:51] LABS: Anion Gap 3 (5-15); Calcium,Total 8.9 mg/dL (8.5-10.1); Chloride 106 mmol/L (98-107); Est Glom Filt Rate - Afr Amer 67 mL/min (>60); Potassium 4.4 mmol/L (3.5-5.1); Sodium Level 140 mmol/L (136-145)
== END ==
PROVIDERS: PCP Family Medicine; Referring Provider Nurse Practitioner Family; Visit Provider Nurse Practitioner Family
DX: I25.810 Atherosclerosis of coronary artery bypass graft(s) without angina pectoris (principal); R94.39 Abnormal result of other cardiovascular function study; Z95.1 Presence of aortocoronary bypass graft; Z95.5 Presence of coronary angioplasty implant and graft
CPT/HCPCS: 36415; 71046; 80048; 85025; 85610; 85730

== ENCOUNTER 2019-11-26 07:53 | Day surgery (SDC) | payer OTHER, MEDICARE, SELFPAY ==
[2019-07-15 08:43] VITALS: BMI 32.5
[2019-10-02 15:36] VITALS: BMI 31.9
[2019-11-25 08:00] VITALS: BMI 31.9
--- NOTE | 2019-11-25 15:23 | PCM.HP.BLA ---
<Juanito Cope - Last Filed: 11/26/19 08:35> History and Physical Date of Admission: 11/26/19 ADAMS TREADWELL, is a 74 M who presents to the [facility] today for a Left heart catheterization. He has history of coronary artery disease status post CABG with LIANG to LAD sequentially, SVG to high lateral LCX branch, and RCA in 2003 and subsequent PCI with MARY to mid LCX, ostial OM, and left main in 2013. He underwent heart catheterization on 03/26/2019 that resulted in successful drug-eluting stent and PTCA to in-stent restenosis of left main. He then presented to outside facility Emergency Department for ongoing chest pain and transferred to [facility] for ST elevated myocardial infarction. On 03/30/2019 he underwent heart catheterization with successful PTCA/MARY to left main for in-stent thrombosis, PTCA/MARY to mid LCx to remove possible outflow obstruction that may have contributed to stent thrombosis, and PCI with PTCA to mid OM 1. He also has a history of ASD status post closure in 2003, hypertension, hyperlipidemia, spinal stenosis. Patient was evaluated virtually via telephone on 09/24/2019 with concerns of not progressing or feeling as well as he expects. During that conversation patient's blood pressure was noted to be significantly elevated. He was asked to monitor his blood pressure for 1 week and then present to office today to evaluate accuracy of blood pressure cuff as well as assess blood pressure trends. He was started on Isosorbide to assist with elevated blood pressure and symptoms. He continued to express concerns regards to not feeling as expected. He then proceeded with a stress test on 11/07/2019. It showed changes appearing compatible with associated forest-infarct related myocardial schema and portions of the distal anterior wall with a LVEF of 41%. Because of his abnormal stress test, he will proceed with heart catheterization to evaluate further. He states falling backwards while walking up the steps. He states feeling off kiltered. This has been ongoing issues. He states noting this through cardiac rehab as well. He states during his physical exercise activities such as biking for 20 minutes, he denies chest pain, but does acknowledge shoulder discomfort like he did in March 2019. He continues with SOB most noted when going up steps. He also stated reduced stamina/endurance. Pt denies arm, jaw, or neck discomfort. He acknowledges upper back discomfort. His exercise tolerance is stable. Pt denies symptoms of palpitations, lightheadedness, dizziness, near syncopal or syncopal episodes. Pt denies edema or claudication issues. Pt. denies orthopnea, PND, fever, chills, blood in urine, blood in stool, or myalgia. He states his weight is relatively unchanged. Intake Vital Signs: See EMR Intake Visit Reasons: [facility] [employer] Required: No Is patient in pain?: No Allergies Penicillins [PCN] Allergy (Mild, Verified 10/02/19 15:36) Rash clopidogrel [From Plavix] Adverse Reaction (Intermediate, Verified 10/02/19 15:36) Burning sensation in arms and chest Medications See EMR [facility] Medical History Essential (primary) hypertension (Chronic) Atherosclerosis of coronary artery bypass graft of [place] heart without angina pectoris (Chronic) Hyperlipidemia (Chronic) Atrial septal defect (Chronic) Premature ventricular complex (Chronic) Cerebrovascular accident (Inactive) Surgical History History of coronary artery stent placement (Chronic 03/30/19) Aortocoronary bypass status (Chronic) Social History Smoking Status: Former smoker ROS Const Const: Positive for other; negative for fatigue, weakness, body ache, fever(s) or chills ENT ENT: Negative for dizziness Cardio Chest Pain: No Palpitations: No Edema: None Muscle aches with walking: None Resp Respiratory: Negative for SOB with activity, SOB at rest, SOB orthopnea\SOB lying down or paroxysmal nocturnal dyspnea GI GI: Negative nausea, vomiting blood/hematemesis, bright, red blood in stools or black,tarry stools : Negative for hematuria or frequent nighttime urination/ nocturia Musc Musc: Negative for muscle aches/ myalgia Skin Skin: Negative non-healing lesions or rash Neuro Neuro: Positive for other (Balance issues); negative for dizziness, lightheadedness, near syncope, syncope, orthostatic symptoms or weakness Endo Endo: Negative for fatigue Allergy Allergy/Immunology: Negative for rash Cardiology Exam Const Appearance: cooperative, healthy appearing, comfortable and no acute distress Nutritional Appearance: well nourished and obese Orientation: alert, awake and oriented x3 Head Head: normal to inspection Ears: hearing grossly normal bilaterally Nose: external nose normal Face and Sinus: face symmetric Mouth: oral mucosae normal Eyes General: appearance normal, both eyes and all related structures Eyelids: eyelids normal EOM: EOM intact bilaterally Neck Neck: normal visual inspection and no JVD Carotids: normal carotid upstroke Chest Chest inspection: normal inspection of the chest, symmetric chest movement and normal respiratory effort; negative cough Auscultation: Bilateral: Clear to Auscultation Cardio Rate: regular rate Rhythm: regular rhythm Heart sounds: S1 normal and S2 normal; negative rub, gallop or murmur Murmur: Grade 2/6 and RLSB GI GI: normal to inspection and obese Neuro General: alert, awake, oriented x3 and CN's II-XI intact bilaterally Skin Skin: no rashes or lesions noted Extremities Pulses: Normal: Right Posterior Tibial Pulse, Left Posterior Tibial Pulse, Right Radial Pulse, Left Radial Pulse Lower Extremity Edema: None: Bilateral Psych Psychological: normal affect Assessment & Plan 1. Atherosclerosis of coronary artery bypass graft of [place] heart without angina pectoris I25.810 Plan Isosorbide was added to patient's regimen previously without improvement in symptoms. He then proceeded with stress test on 11/07/2019 that was considered to be abnormal. Thus, given his cardiovascular history and abnormal stress test, he will proceed with left heart catheterization. Based on results, further recommendation be made. 2. Aortocoronary bypass status Z95.1 X 4 LIANG to LAD sequentially, 07/31/2003 Plan He will continue current treatment as outlined above. 3. History of coronary artery stent placement Z95.5 03/26/19:PCI/MARY of the ISR of Lt Main 03/26/19; 03/30/19 Successful PTCA/MARY to Left main for in stent thrombosis, fasciliated by reloading with brilinta, iv integrilin, thrombectomy, IVUS of LM, followed by a 3.5 x 12 Promus Synergy stent from mid LM to ostial LM, post dilated with a 3.5 x 8 NC Ballloon. All segments re-IVUSed at end of procedure which demostrated appropriate and complete stent apposition, no residual thombosis, and no edge dissections. Successful PTCA/MARY mid LCX with a 2.25 x 12 Promus Synergy to remove possible outflow obstruction that may have contributed to in stent thrombosis. Successful emergent PCI with PTCA to the mid OM#1 with a 2.0 x 12 Emerge balloon, unable to pass 2.5 x 20 stent despite ary wire; 85%-->30%, no dissection. Previously placed LM stent appeared to be adequately apposed but possibley underdeployed. Cannot exclude possible proximal edge dissection, so additional LM stent placed. Plan He was reminded to continue risk factor and lifestyle modification. 4. Atrial septal defect Q21.1 Status post repair Plan His most recent echocardiogram from June 2019 showed ejection fraction of 50%. There is no mention of ASD. At this time, he will continue current medical therapy. We will continue to monitor. 5. Essential (primary) hypertension I10 Plan His blood pressure has been averaging approximately systolic 140s at home. This will be followed overtime with medication adjustment as necessary. 6. Hyperlipidemia, unspecified hyperlipidemia type E78.5 Plan He will continue current high dose statin medication. Supplemental Info Supplemental Information Echocardiogram from 07/01/2019: Interpretation Summary Mild segmental systolic dysfunction (see wall motion). The estimated ejection fraction is 50 %. Mild focal mitral valve calcification of the posterior leaflet. Mild (1+) mitral valve insufficiency. Trivial tricuspid valve insufficiency. Aortic sclerosis, no stenosis. Trivial aortic valve insufficiency. Trivial pulmonic valve insufficiency. Right ventricular systolic pressure estimated to be 27 mmHg. Transmitral diastolic flow velocities suggest diastolic dysfunction (pseudonormal pattern). Echocardiogram from 03/31/2019: Interpretation Summary Moderately dilated left ventricle. The estimated ejection fraction is 35-40 %. Stage 2 diastolic dysfunction. Moderately dilated right ventricle. Trivial mitral valve insufficiency. Unable to estimate RV systolic pressure due to insufficient tricuspid regurgitant envelope. Compared to echo report dated 03/20/2019, LV function appears slightly worse from 45% to 35% with new infero/lateral hypokinesis. The study was technically difficult. Contrast injection was performed. Stress test from 09/06/2016: Impressions: Normal stress myocardial perfusion imaging. Scar inferolateral segments with small area of reversibility to lateral wall. LVEF is normal. Stress Test Report Date: 11-07-2019 Procedure: Exercise tolerance test/imaging study Indications: Shortness of breath/dyspnea on exertion; CAD; PCI; CABG; PFO/ASD closure Consent: Per the patient Procedure: The patient exercised on a Adams protocol for 6 minutes completing Stage II achieving a peak heart rate of 121 bpm (83 % predicted maximal heart rate) with a peak blood pressure 180/90 mmHg and a peak MET capacity of 7 METs. The baseline ECG demonstrated sinus bradycardia; poor R wave progression. The peak exercise ECG demonstrated no obvious ECG changes. There were no cardiac dysrhythmias pretest, during exercise, or recovery. The functional capacity was considered average. There was no complaint of chest discomfort during exercise or recovery. The examination was discontinued secondary to dyspnea. Impression: 1. Technically adequate (percent predicted maximal heart rate greater than 85%) exercise tolerance test 2. Peak exercise ECG with no obvious ECG changes 3. There were no cardiac dysrhythmias pretest, during exercise, or recovery 4. Nuclear images pending Myocardial perfusion imaging study: Technique: The patient was injected with well 12.0 mCi of technetium 99m Cardiolite and subsequently rest SPECT Cardiolite nuclear imaging was obtained in the horizontal long, vertical long, and short axis views. The patient exercised on a Adams protocol for 6 minutes completing Stage II achieving a peak heart rate of 121 bpm (83 % predicted maximal heart rate) with a peak blood pressure 180/90 mmHg and a peak MET capacity of 7 METs. The patient was injected with 36.0 mCi of technetium 99m Cardiolite and subsequently stress SPECT Cardiolite nuclear imaging was obtained in the horizontal long, vertical long, and short axis views. A gated Cardiolite study at peak stress was obtained. Interpretation: Rest and stress SPECT Cardiolite nuclear imaging status post realignment, normalization, and attenuation correction, demonstrates the appearance of diminished tracer uptake in portions of the mid anterior segments at both rest and stress and status post stress areas of diminished tracer uptake in portions of the distal anterior segments. There is diminished end systolic thickening and brightening. The gated Cardiolite study demonstrates diminished myocardial thickening and inward wall motion. The reported LVEF is 41 %. Impression: 1. Rest and stress SPECT Cardiolite nuclear imaging demonstrate card perfusion changes appearing compatible with an area of previous myocardial injury/infarction in portions of the mid anterior wall with post stress myocardial perfusion changes appearing compatible with associated forest-infarct related myocardial ischemia in portions of the distal anterior wall. 2. The gated Cardiolite study reports an LVEF of 41 %. Heart catheterization from 03/26/2019: CONCLUSIONS Elevated Left Ventricular End Diastolic Pressure [place] Multivessel CAD LIANG to LAD: patent SVG to OM1: occluded (chronic) SVG to RCA: patent Left to Left and Right to Left Collateral Flow RECOMMENDATIONS Risk factor modification Medical therapy Referred for immediate PCI CORONARY ANGIOGRAPHY DOMINANCE: Right Dominant LEFT HEART ASSESSMENT Left Ventricular Ejection Fraction: Not assessed Elevated Left Ventricular End Diastolic Pressure LVEDP: 14 mmHg LEFT MAIN: Previously placed stent is patent with distal eccentric 85 % instent restenosis LEFT ANTERIOR DESCENDING ARTERY: DISTAL LAD: Mild luminal irregularities CIRCUMFLEX ARTERY: MID CIRC: 25 % Stenosis OM 1: Mid - 25 % Stenosis RIGHT CORONARY ARTERY: PROX RCA: is occluded RT PDA: Proximal - 50 % Stenosis GRAFTS: LIANG graft to the Mid LAD is patent Saphenous Vein graft to the 1st OM is totally occluded Saphenous Vein graft to the RCA is patent COLLATERAL FLOW: Collateral flow from Left to Left Collateral flow from Right to Left Cardiac catheterization intervention from 02/23/2019: CONCLUSIONS Successful PCI with Drug eluting stent and PTCA to the ISR of left main. Heart catheterization from 03/26/2019: CONCLUSIONS Elevated Left Ventricular End Diastolic Pressure [place] Multivessel CAD LIANG to LAD: patent SVG to OM1: occluded (chronic) SVG to RCA: patent Left to Left and Right to Left Collateral Flow RECOMMENDATIONS Risk factor modification Medical therapy Referred for immediate PCI CORONARY ANGIOGRAPHY DOMINANCE: Right Dominant LEFT HEART ASSESSMENT Left Ventricular Ejection Fraction: Not assessed Elevated Left Ventricular End Diastolic Pressure LVEDP: 14 mmHg LEFT MAIN: Previously placed stent is patent with distal eccentric 85 % instent restenosis LEFT ANTERIOR DESCENDING ARTERY: DISTAL LAD: Mild luminal irregularities CIRCUMFLEX ARTERY: MID CIRC: 25 % Stenosis OM 1: Mid - 25 % Stenosis RIGHT CORONARY ARTERY: PROX RCA: is occluded RT PDA: Proximal - 50 % Stenosis GRAFTS: LIANG graft to the Mid LAD is patent Saphenous Vein graft to the 1st OM is totally occluded Saphenous Vein graft to the RCA is patent COLLATERAL FLOW: Collateral flow from Left to Left Collateral flow from Right to Left Cardiac catheterization intervention from 03/26/2019: CONCLUSIONS Successful PCI with Drug eluting stent and PTCA to the ISR of left main. Cardiac catheterization intervention from 03/31/2019: CONCLUSIONS Successful PTCA/MARY to Left main for in stent thrombosis, facilitated by reloading with Brilinta, iv Integrilin, thrombectomy, IVUS of LM, followed by a 3.5 x 12 Promus Synergy stent from mid LM to ostial LM, post dilated with a 3.5 x 8 NC Ballloon. All segments re-IVUSed at end of procedure which demonstrated appropriate and complete stent apposition, no residual thrombosis, and no edge dissections. Successful PTCA/MARY mid LCX with a 2.25 x 12 Promus Synergy to remove possible outflow obstruction that may have contributed to in stent thrombosis. Successful emergent PCI with PTCA to the mid OM#1 with a 2.0 x 12 Emerge balloon, unable to pass 2.5 x 20 stent despite ary wire; 85%-->30%, no dissection. Previously placed LM stent appeared to be adequately apposed but possibly underdeployed. Cannot exclude possible proximal edge dissection, so additional LM stent placed. Procedure Criteria Procedure Type: Elective COVID Risk Discussion: The surgeon/proceduralist and patient have discussed in detail the risk of exposure to and/or potential harm posed by the COVID-19 virus with having a surgery/procedure at this time versus the risk of delaying the surgery/procedure. It is not possible to know either the risk of delaying the surgery or procedure or chance of getting an infection with perfect accuracy, but a joint decision was made between the patient and the surgeon/proceduralist to proceed at this time with the scheduled surgery/procedure as indicated on the consent form. <Christian Alberts - Last Filed: 11/26/19 08:57> Problem List (1) CAD in [place] artery Status: Chronic (2) History of coronary artery stent placement Status: Chronic Comment: 03/26/19:PCI/MARY of the ISR of Lt Main 03/26/19; 03/30/19 Successful PTCA/MARY to Left main for in stent thrombosis, fasciliated by reloading with brilinta, iv integrilin, thrombectomy, IVUS of LM, followed by a 3.5 x 12 Promus Synergy stent from mid LM to ostial LM, post dilated with a 3.5 x 8 NC Ballloon. All segments re-IVUSed at end of procedure which demostrated appropriate and complete stent apposition, no residual thombosis, and no edge dissections. Successful PTCA/MARY mid LCX with a 2.25 x 12 Promus Synergy to remove possible outflow obstruction that may have contributed to in stent thrombosis. Successful emergent PCI with PTCA to the mid OM#1 with a 2.0 x 12 Emerge balloon, unable to pass 2.5 x 20 stent despite ary wire; 85%-->30%, no dissection. Previously placed LM stent appeared to be adequately apposed but possibley underdeployed. Cannot exclude possible proximal edge dissection, so additional LM stent placed. (3) Aortocoronary bypass status Status: Chronic Comment: X 4 LIANG to LAD sequentially, 07/31/2003 (4) Atrial septal defect Status: Chronic Comment: Status post repair (5) Hyperlipidemia Status: Chronic Qualifiers: Hyperlipidemia type: unspecified Qualified Code(s): E78.5 - Hyperlipidemia, unspecified (6) Essential (primary) hypertension Status: Chronic (7) Premature ventricular complex Status: Chronic History and Physical Addendum: Date: 11-26-2019 I have re-examined the patient. There are no clinical changes since date of exam.
--- NOTE | 2019-11-26 07:46 | HP.PCM_ITS ---
Problem List (1) CAD in [place] artery Status: Chronic (2) History of coronary artery stent placement Status: Chronic Comment: 03/26/19:PCI/MARY of the ISR of [place] 03/26/19; 03/30/19 Successful PTCA/MARY to Left main for in stent thrombosis, fasciliated by reloadi ng with brilinta, iv integrilin, thrombectomy, IVUS of LM, followed by a 3.5 x 12 Promus Synergy stent from mid LM to ostial LM, post dilated with a 3.5 x 8 NC Ballloon. All segments re-IVUSed at end of procedure which demostrated appropriate and complete stent apposition, no residual thombosis, and no edge dissections. Successful PTCA/MARY mid LCX with a 2.25 x 12 Promus Synergy to remove possible outflow obstruction that may have contributed to in stent thrombosis. Successful emergent PCI with PTCA to the mid OM#1 with a 2.0 x 12 Emerge balloon, unable to pass 2.5 x 20 stent despite ary wire; 85%-->30%, no dissection. Previously placed LM stent appeared to be adequately apposed but possibley underdeployed. Cannot exclude possible proximal edge dissection, so additional LM stent placed. (3) Aortocoronary bypass status Status: Chronic Comment: X 4 LIANG to LAD sequentially, 07/31/2003 (4) Atrial septal defect Status: Chronic Comment: Status post repair (5) Hyperlipidemia Status: Chronic Qualifiers: Hyperlipidemia type: unspecified Qualified Code(s): E78.5 - Hyperlipidemia, unspecified (6) Essential (primary) hypertension Status: Chronic (7) Premature ventricular complex Status: Chronic History and Physical Date of Admission: 11/26/19 [facility] Medical Records Department [address] [place] [address] History and Physical 11/25/19 1523 MR#: [id number] Acct: [id number] Name: ADAMS TREADWELL Rep #:[id number] : 1945 74 From: Juanito Barraza PCP: Dr. Leonarda Smith, DO Status: PRE [facility] Location: [facility] History and Physical Date of Admission: 11/26/19 ADAMS TREADWELL, is a 74 M who presents to the [facility] today for a Left heart catheterization. He has history of coronary artery disease status post CABG with LIANG to LAD sequentially, SVG to high lateral LCX branch, and RCA in 2003 and subsequent PCI with MARY to mid LCX, ostial OM, and left main in 2013. He underwent heart catheterization on 03/26/2019 that resulted in successful drug- eluting stent and PTCA to in-stent restenosis of left main. He then presented to outside facility Emergency Department for ongoing chest pain and transferred to [facility] for ST elevated myocardial infarction. On 03/30/2019 he underwent heart catheterization with successful PTCA/MARY to left ma in for in-stent thrombosis, PTCA/MARY to mid LCx to remove possible outflow obstruction that may have contributed to stent thrombosis, and PCI with PTCA to mid OM 1. He also has a history of ASD status post closure in 2003, hypertension, hyperlipidemia, spinal stenosis. Patient was evaluated virtually via telephone on 09/24/2019 with concerns of not progressing or feeling as well as he expects. During that conversation patient's blood pressure was noted to be significantly elevated. He was asked to monitor his blood pressure for 1 week and then present to office today to evaluate accuracy of blood pressure cuff as well as assess blood pressure trends. He was referred to urology due to frequent urination. He continued to express concerns regards to not feeling as expected. He does proceed with a stress test on 11/07/2019. That showed changes appearing compatible with associated forest-infarct related myocardial schema and portions of the distal anterior wall with a LVEF of 41%. Because of his abnormal stress test, he will proceed with heart catheterization to evaluate further. He states falling backwards while walking up the steps. He states feeling off kiltered. This has been ongoing issues. He states noting this through cardiac rehab as well. He states during his physical exercise activities such as biking for 20 minutes, he denies chest pain, but does acknowledge shoulder discomfort like he did in March 2019. He continues with SOB most noted when going up steps. Pt denies arm, jaw, or neck discomfort. He acknowledges upper back discomfort. His exercise tolerance is stable. Pt denies symptoms of palpitations, lightheadedness, dizziness, near syncopal or syncopal episodes. Pt denies edema or claudication issues. Pt. denies orthopnea, PND, fever, chills, blood in urine, blood in stool, myalgia, or unexplainable fatigue. He states his weight is relatively unchanged. Intake Vital Signs: See EMR Intake Visit Reasons: [facility] Required: No Is patient in pain?: No Allergies Penicillins [PCN] Allergy (Mild, Verified 10/02/19 15:36) Rash clopidogrel [From Plavix] Adverse Reaction (Intermediate, Verified 10/02/19 15:36) Burning sensation in arms and chest Medications See EMR [facility] Medical History Essential (primary) hypertension (Chronic) Atherosclerosis of coronary artery bypass graft of [place] heart without angina pectoris (Chronic) Hyperlipidemia (Chronic) Atrial septal defect (Chronic) Premature ventricular complex (Chronic) Cerebrovascular accident (Inactive) Surgical History History of coronary artery stent placement (Chronic 03/30/19) Aortocoronary bypass status (Chronic) Social History Smoking Status: Former smoker ROS Const Const: Positive for other; negative for fatigue, weakness, body ache, fever(s) or chills ENT ENT: Negative for dizziness Cardio Chest Pain: No Palpitations: No Edema: None Muscle aches with walking: None Resp Respiratory: Negative for SOB with activity, SOB at rest, SOB orthopnea\SOB lying down or paroxysmal nocturnal dyspnea GI GI: Negative nausea, vomiting blood/hematemesis, bright, red blood in stools or black,tarry stools : Negative for hematuria or frequent nighttime urination/ nocturia Musc Musc: Negative for muscle aches/ myalgia Skin Skin: Negative non-healing lesions or rash Neuro Neuro: Positive for other (Balance issues); negative for dizziness, lightheadedness, near syncope, syncope, orthostatic symptoms or weakness Endo Endo: Negative for fatigue Allergy Allergy/Immunology: Negative for rash Cardiology Exam Const Appearance: cooperative, healthy appearing, comfortable and no acute distress Nutritional Appearance: well nourished and obese Orientation: alert, awake and oriented x3 Head Head: normal to inspection Ears: hearing grossly normal bilaterally Nose: external nose normal Face and Sinus: face symmetric Mouth: oral mucosae normal Eyes General: appearance normal, both eyes and all related structures Eyelids: eyelids normal EOM: EOM intact bilaterally Neck Neck: normal visual inspection and no JVD Carotids: normal carotid upstroke Chest Chest inspection: normal inspection of the chest, symmetric chest movement and normal respiratory effort; negative cough Auscultation: Bilateral: Clear to Auscultation Cardio Rate: regular rate Rhythm: regular rhythm Heart sounds: S1 normal and S2 normal; negative rub, gallop or murmur Murmur: Grade 2/6 and RLSB GI GI: normal to inspection and obese Neuro General: alert, awake, oriented x3 and CN's II-XI intact bilaterally Skin Skin: no rashes or lesions noted Extremities Pulses: Normal: Right Posterior Tibial Pulse, Left Posterior Tibial Pulse, Right Radial Pulse, Left Radial Pulse Lower Extremity Edema: None: Bilateral Psych Psychological: normal affect Assessment & Plan 1. Atherosclerosis of coronary artery bypass graft of [place] heart without angina pectoris I25.810 Plan Isosorbide was added to patient's regimen previously without improvement in symptoms He then proceeded with stress test on 11/07/2019 that was considered to be abnormal. Thus, given his cardiovascular history and abnormal stress test, he will proceed with left heart catheterization. Based on results, further recommendation be made. 2. Aortocoronary bypass status Z95.1 X 4 LIANG to LAD sequentially, 07/31/2003 Plan He will continue current treatment as outlined above. 3. History of coronary artery stent placement Z95.5 03/26/19:PCI/MARY of the ISR of [place] 03/26/19; 03/30/19 Successful PTCA/MARY to Left main for in stent thrombosis, fasciliated by reloading with brilinta, iv integrilin, thrombectomy, IVUS of LM, followed by a 3.5 x 12 Promus Synergy stent from mid LM to ostial LM, post dilated with a 3.5 x 8 NC Ballloon. All segments re-IVUSed at end of procedure which demostrated appropriate and complete stent apposition, no residual thombosis, and no edge dissections. Successful PTCA/MARY mid LCX with a 2.25 x 12 Promus Synergy to remove possible outflow obstruction that may have contributed to in stent thrombosis. Successful emergent PCI with PTCA to the mid OM#1 with a 2.0 x 12 Emerge balloon, unable to pass 2.5 x 20 stent despite ary wire; 85%-->30%, no dissection. Previously placed LM stent appeared to be adequately apposed but possibley underdeployed. Cannot exclude possible proximal edge dissection, so additional LM stent placed. Plan He was reminded to continue risk factor and lifestyle modification. 4. Atrial septal defect Q21.1 Status post repair Plan His most recent echocardiogram from June 2019 showed ejection fraction of 50%. There is no mention of ASD. At this time, he will continue current medical therapy. We will continue to monitor. 5. Essential (primary) hypertension I10 Plan His blood pressure has been averaging approximately systolic 140s. This will be followed overtime with medication adjustment as necessary. 6. Hyperlipidemia, unspecified hyperlipidemia type E78.5 Plan He will continue current high dose statin medication. Supplemental Info Supplemental Information Echocardiogram from 07/01/2019: Interpretation Summary Mild segmental systolic dysfunction (see wall motion). The estimated ejection fraction is 50 %. Mild focal mitral valve calcification of the posterior leaflet. Mild (1+) mitral valve insufficiency. Trivial tricuspid valve insufficiency. Aortic sclerosis, no stenosis. Trivial aortic valve insufficiency. Trivial pulmonic valve insufficiency. Right ventricular systolic pressure estimated to be 27 mmHg. Transmitral diastolic flow velocities suggest diastolic dysfunction (pseudonormal pattern). Echocardiogram from 03/31/2019: Interpretation Summary Moderately dilated left ventricle. The estimated ejection fraction is 35-40 %. Stage 2 diastolic dysfunction. Moderately dilated right ventricle. Trivial mitral valve insufficiency. Unable to estimate RV systolic pressure due to insufficient tricuspid regurgitant envelope. Compared to echo report dated 03/20/2019, LV function appears slightly worse from 45% to 35% with new infero/lateral hypokinesis. The study was technically difficult. Contrast injection was performed. Stress test from 09/06/2016: Impressions: Normal stress myocardial perfusion imaging. Scar inferolateral segments with small area of reversibility to lateral wall. LVEF is normal. Stress Test Report Date: 11-07-2019 Procedure: Exercise tolerance test/imaging study Indications: Shortness of breath/dyspnea on exertion; CAD; PCI; CABG; PFO/ASD closure Consent: Per the patient Procedure: The patient exercised on a Adams protocol for 6 minutes completing Stage II achieving a peak heart rate of 121 bpm (83 % predicted maximal heart rate) with a peak blood pressure 180/90 mmHg and a peak MET capacity of 7 METs. The baseline ECG demonstrated sinus bradycardia; poor R wave progression. The peak exercise ECG demonstrated no obvious ECG changes. There were no cardiac dysrhythmias pretest, during exercise, or recovery. The functional capacity was considered average. There was no complaint of chest discomfort during exercise or recovery. The examination was discontinued secondary to dyspnea. Impression: 1. Technically adequate (percent predicted maximal heart rate greater than 85%) exercise tolerance test 2. Peak exercise ECG with no obvious ECG changes 3. There were no cardiac dysrhythmias pretest, during exercise, or recovery 4. Nuclear images pending Myocardial perfusion imaging study: Technique: The patient was injected with well 12.0 mCi of technetium 99m Cardiolite and subsequently rest SPECT Cardiolite nuclear imaging was obtained in the horizontal long, vertical long, and short axis views. The patient exercised on a Adams protocol for 6 minutes completing Stage II achieving a peak heart rate of 121 bpm (83 % predicted maximal heart rate) with a peak blood pressure 180/90 mmHg and a peak MET capacity of 7 METs. The patient was injected with 36.0 mCi of technetium 99m Cardiolite and subsequently stress SPECT Cardiolite nuclear imaging was obtained in the horizontal long, vertical long, and short axis views. A gated Cardiolite study at peak stress was obtained. Interpretation: Rest and stress SPECT Cardiolite nuclear imaging status post realignment, normalization, and attenuation correction, demonstrates the appearance of diminished tracer uptake in portions of the mid anterior segments at both rest and stress and status post stress areas of diminished tracer uptake in portions of the distal anterior segments. There is diminished end systolic thickening and brightening. The gated Cardiolite study demonstrates diminished myocardial thickening and inward wall motion. The reported LVEF is 41 %. Impression: 1. Rest and stress SPECT Cardiolite nuclear imaging demonstrate card perfusion changes appearing compatible with an area of previous myocardial injury/infarction in portions of the mid anterior wall with post stress myocardial perfusion changes appearing compatible with associated forest-infarct related myocardial ischemia in portions of the distal anterior wall. 2. The gated Cardiolite study reports an LVEF of 41 %. Heart catheterization from 03/26/2019: CONCLUSIONS Elevated Left Ventricular End Diastolic Pressure [place] Multivessel CAD LIANG to LAD: patent SVG to OM1: occluded (chronic) SVG to RCA: patent Left to Left and Right to Left Collateral Flow RECOMMENDATIONS Risk factor modification Medical therapy Referred for immediate PCI CORONARY ANGIOGRAPHY DOMINANCE: Right Dominant LEFT HEART ASSESSMENT Left Ventricular Ejection Fraction: Not assessed Elevated Left Ventricular End Diastolic Pressure LVEDP: 14 mmHg LEFT MAIN: Previously placed stent is patent with distal eccentric 85 % instent restenosis LEFT ANTERIOR DESCENDING ARTERY: DISTAL LAD: Mild luminal irregularities CIRCUMFLEX ARTERY: MID CIRC: 25 % Stenosis OM 1: Mid - 25 % Stenosis RIGHT CORONARY ARTERY: PROX RCA: is occluded RT PDA: Proximal - 50 % Stenosis GRAFTS: LIANG graft to the Mid LAD is patent Saphenous Vein graft to the 1st OM is totally occluded Saphenous Vein graft to the RCA is patent COLLATERAL FLOW: Collateral flow from Left to Left Collateral flow from Right to Left Cardiac catheterization intervention from 02/23/2019: CONCLUSIONS Successful PCI with Drug eluting stent and PTCA to the ISR of left main. Heart catheterization from 03/26/2019: CONCLUSIONS Elevated Left Ventricular End Diastolic Pressure [place] Multivessel CAD LIANG to LAD: patent SVG to OM1: occluded (chronic) SVG to RCA: patent Left to Left and Right to Left Collateral Flow RECOMMENDATIONS Risk factor modification Medical therapy Referred for immediate PCI CORONARY ANGIOGRAPHY DOMINANCE: Right Dominant LEFT HEART ASSESSMENT Left Ventricular Ejection Fraction: Not assessed Elevated Left Ventricular End Diastolic Pressure LVEDP: 14 mmHg LEFT MAIN: Previously placed stent is patent with distal eccentric 85 % instent restenosis LEFT ANTERIOR DESCENDING ARTERY: DISTAL LAD: Mild luminal irregularities CIRCUMFLEX ARTERY: MID CIRC: 25 % Stenosis OM 1: Mid - 25 % Stenosis RIGHT CORONARY ARTERY: PROX RCA: is occluded RT PDA: Proximal - 50 % Stenosis GRAFTS: LIANG graft to the Mid LAD is patent Saphenous Vein graft to the 1st OM is totally occluded Saphenous Vein graft to the RCA is patent COLLATERAL FLOW: Collateral flow from Left to Left Collateral flow from Right to Left Cardiac catheterization intervention from 03/26/2019: CONCLUSIONS Successful PCI with Drug eluting stent and PTCA to the ISR of left main. Cardiac catheterization intervention from 03/31/2019: CONCLUSIONS Successful PTCA/MARY to Left main for in stent thrombosis, facilitated by reloading with Brilinta, iv Integrilin, thrombectomy, IVUS of LM, followed by a 3.5 x 12 Promus Synergy stent from mid LM to ostial LM, post dilated with a 3.5 x 8 NC Ballloon. All segments re-IVUSed at end of procedure which demonstrated appropriate and complete stent apposition, no residual thrombosis, and no edge dissections. Successful PTCA/MARY mid LCX with a 2.25 x 12 Promus Synergy to remove possible outflow obstruction that may have contributed to in stent thrombosis. Successful emergent PCI with PTCA to the mid OM#1 with a 2.0 x 12 Emerge balloon, unable to pass 2.5 x 20 stent despite ary wire; 85%-->30%, no dissection. Previously placed LM stent appeared to be adequately apposed but possibly underdeployed. Cannot exclude possible proximal edge dissection, so additional LM stent placed. Procedure Criteria Procedure Type: Elective COVID Risk Discussion: The surgeon/proceduralist and patient have discussed in detail the risk of exposure to and/or potential harm posed by the COVID-19 virus with having a surgery/procedure at this time versus the risk of delaying the surgery/procedure. It is not possible to know either the risk of delaying the surgery or procedure or chance of getting an infection with perfect accuracy, but a joint decision was made between the patient and the surgeon/proceduralist to proceed at this time with the scheduled surgery/procedure as indicated on the consent form. Date _ Juanito AUSTIN I have re-examined the patient. There are no clinical changes since date of exam.
--- NOTE | 2019-11-26 10:37 | CL.D_ITS ---
Patient Name: NICOLLE TREADWELL Study Date: 11/26/2019 Performing: Christian Alberts MD Ht: 68.11 inches 173 cm : 1945 Wt: 209.44 lbs 95 kg Age: 74 Gender: male BSA: 2.09 PROCEDURE(S) PERFORMED UH02-PRY/COR/LV/CABG CLINICAL PROFILE AND INDICATIONS Indications: Suspected CAD Heart Failure: None Stress/Imaging Date: 11/07/2019Stress Test with SPECT MPI: Positive Angina Classification Anginal Classification w/in 2 Weeks: CCS III CAD Presentations: Stable angina. CONCLUSIONS Elevated Left Ventricular End Diastolic Pressure Segmented LV systolic dysfunction- Mild LVEF: by LV gram 45 % [place] Multivessel CAD LIANG to LAD: patent SVG to OM1: occluded (chronic) SVG to RPDA: patent Left to Left collateral flow RECOMMENDATIONS Risk factor modification Medical therapy Case discussed / reviewed with Ji Barragan MD of interventional cardiology DESCRIPTION OF PROCEDURE The patient arrived to the procedure lab. The risks and benefits of the procedure as well as a full d escription of our services here and current unavailability of surgical backup were fully explained to the patient and/or their significant other prior to the catheterization. The Timeout was completed, verifying the correct patient and procedure. The patient's procedural site was prepped and draped in the usual fashion. Local anesthetic was given subcutaneously to right groin region with Lidocaine 2%. Using a modified Seldinger technique, arterial access was obtained via the right femoral artery, a 4 Fr sheath was inserted Left Coronary Artery selective angiography was performed in multiple views us ing a 4 Fr. JL5 catheter. Right Coronary Artery selective angiography was then performed in multiple views using a 4 Fr. 3DRC catheter. Saphenous Vein graft to the RCA selective angiography was performe d in multiple views using a 4 Fr. JR4 catheter. Left internal mammary artery graft to the LAD selective angiography was performed in multiple views using a 4 Fr. JR4 catheter. Left Ventriculo graphy was performed in MCNEAL projection using a 4 Fr. Pigtail catheter. LV to AO pullback pressures we re then recorded.The arterial sheath was pulled and manual compression applied until hemostasis is ac hieved. CORONARY ANGIOGRAPHY DOMINANCE: Right Dominant LEFT HEART ASSESSMENT Left Ventricular Ejection Fraction: by LV Gram 45 % Anterior Hypokinesis Elevated Left Ventricular End Diastolic Pressure LVEDP: 24 mmHg LEFT MAIN: Previously placed stent is patent LEFT ANTERIOR DESCENDING ARTERY: MID LAD: is occluded, to distal fills from the LIANG graft with no angiographically significant appear ing disease distal to the graft attachment CIRCUMFLEX ARTERY: PROX CIRC: Previously placed stent is patent OM 1: Proximal - Previously placed stent is patent, Proximal - small side branch vessel occluded and fills late and faintly from left to left collateral flow RIGHT CORONARY ARTERY: PROX RCA: is occluded RT PDA: small vessel with proximal 50 % Stenosis, Proximal - fills from the SVG graft GRAFTS: LIANG graft to the Mid LAD is patent Saphenous Vein graft to the 1st OM is totally occluded Saphenous Vein graft to the RPDA is patent COLLATERAL FLOW: Collateral flow from Left to Left AORTIC ROOT: Angiographically normal COMPLICATIONS No Complications PROCEDURE MEDICATIONS Versed 1 mg IV Oxygen: 2 L/min via nasal cannula SUMMARY OF HEMODYNAMIC DATA Time AIR REST ECG 08:10:16 AO 140/71 (96) SA 09:38:06 LV 127/-4, 21 09:54:41 LV 127/3, 24 09:54:47 LV 131/4, 27 09:55:41 LV 131/5, 27 09:55:47 LVp 132/4, 18 09:55:52 AOp 134/61 (85) 09:55:57 Signed By Christian Alberts MD On 11/26/2019 10:36:35 Christian Alberts MD
--- NOTE | 2019-11-26 12:42 | CHAPLAIN ---
Type of Pastoral Visit _x__ Initial Visit ___ Follow-up Visit ___ On-call Visit ___ General Patient Visit ___ Spiritual Assessment ___ Family Conference ___ Bereavement ___ Rapid Response ___ Code Blue ___ Other (describe below) Pastoral Care Referral From _x__ Patient ___ Family ___ Nurse ___ Physician ___ Retirement Actuary ___ Human Resources Temp ___ Other (describe below) Sacrament/Intervention _x__ Active listening ___ Anointing ___ Church ___ Bereavement ___ Communion ___ Shefali exploration ___ _x__ Life review _x__ Prayer ___ Reconciliation ___ Sacrament of Sick ___ Supportive presence ___ Wedding ___ Other (describe below) Pastoral Comments
== END 2019-11-26 14:33 | disposition home or self-care (01) ==
PROVIDERS: PCP Family Medicine; Referring Provider Internal Medicine Cardiovascular Disease; Visit Provider Internal Medicine Cardiovascular Disease
DX: I25.10 Atherosclerotic heart disease of native coronary artery without angina pectoris (principal); I25.810 Atherosclerosis of coronary artery bypass graft(s) without angina pectoris; T82.858A Stenosis of other vascular prosthetic devices, implants and grafts, initial encounter; I49.3 Ventricular premature depolarization; Q21.1 Atrial septal defect; I10 Essential (primary) hypertension; E78.5 Hyperlipidemia, unspecified; Z79.02 Long term (current) use of antithrombotics/antiplatelets; Z79.82 Long term (current) use of aspirin; Z79.899 Other long term (current) drug therapy; I25.2 Old myocardial infarction; R94.39 Abnormal result of other cardiovascular function study; Z87.891 Personal history of nicotine dependence; Z95.5 Presence of coronary angioplasty implant and graft
CPT/HCPCS: 93459; 99152; 99153; J7040; C1769; C1894; Q9967

== ENCOUNTER → 2020-01-23 07:16 | Outpatient (CLI) | payer OTHER, MEDICARE, SELFPAY ==
[2019-07-15 08:43] VITALS: BMI 32.5
[2019-12-13 14:54] VITALS: BMI 33.0
--- NOTE | 2020-01-23 14:32 | PFTCOMP_ITS ---
COMPLETE PULMONARY FUNCTION TEST INTERPRETATION Brief HPI: Patient is a 74 year old male, currently under the care of Dr. Alberst, who presents to [facility] for complete pulmonary function tests secondary to diagnosis of dyspnea. Respiratory therapist reports good effort and reproducible results. Interpretation: Forced expiration spirometry shows no large airways obstructive ventilatory defect with an FEV1 of 82% predicted. There is no significant bronchodilator response by strict ATS criteria. Spirograms are of good quality and plateau normally. The respiratory flow volume loop shows decreased expiratory flow rates at high lung volumes consistent with small airways obstruction. Lung volumes by body plethysmography show an elevated total lung capacity at 11.56, 194% predicted. All other lung volumes are increased symmetrically. These values may be spurious as they are supranormal. Interpretation with caution. Diffusion capacity by carbon monoxide is decreased at 57% predicted. The airway resistance is normal. No previous pulmonary function tests were available for review. Impression: Isolated reduction in diffusion capacity with some stigmata of small airways disease.
== END ==
PROVIDERS: PCP Family Medicine; Referring Provider Internal Medicine Cardiovascular Disease; Visit Provider Internal Medicine Cardiovascular Disease
DX: R06.00 Dyspnea, unspecified (principal); Z79.899 Other long term (current) drug therapy
CPT/HCPCS: 94060; 94726; 94729

== ENCOUNTER → 2020-05-27 08:11 | Outpatient (CLI) | payer OTHER, MEDICARE, SELFPAY ==
[2019-07-15 08:43] VITALS: BMI 32.5
[2020-05-01 13:20] VITALS: BMI 32.4
[2020-05-27 10:04] LABS: AST(SGOT) 21 U/L (15-37); Alanine Aminotransfer ALT/SGPT 22 U/L (16-61); Albumin, Serum 3.5 g/dL (3.2-5.0); Alkaline Phosphatase 102 U/L (45-117); Bilirubin, Direct 0.23 mg/dL (0.00-0.30); Cholesterol 135 mg/dL (200); Globulin 3.5 g/dL (2.2-4.2); High Density Lipoprotein 56 mg/dL; Triglycerides 69 mg/dL; Very Low Density Lipoprotein 14 mg/dL (5-40)
== END ==
PROVIDERS: PCP Family Medicine; Referring Provider Internal Medicine Cardiovascular Disease; Visit Provider Internal Medicine Cardiovascular Disease
DX: E78.00 Pure hypercholesterolemia, unspecified (principal)
CPT/HCPCS: 36415; 80061; 80076

== ENCOUNTER 2020-06-25 14:33 | Emergency (ER) | payer OTHER, MEDICARE, SELFPAY ==
[2019-07-15 08:43] VITALS: BMI 32.5
[2020-05-01 13:20] VITALS: BMI 32.4
[2020-06-25 14:36] VITALS: BP 163/80; PULSE 65; RESP 17; TEMP 36.9; O2SAT 96; BMI 34.4
--- NOTE | 2020-06-25 14:49 | CT_ITS ---
STUDY: CT BRAIN WITHOUT CONTRAST REASON FOR EXAM: Male, 74 years old. WEAKNESS, HYPERTENSION, and quot;FEELS OFF and quot; X 2 DAYS RADIATION DOSAGE (If Supplied By Facility): CTDIvol = ( 60.81 ) mGy, DLP = ( 1112.69 ) mGycm TECHNIQUE: Transaxial CT imaging of the brain was performed without administration of intravenous contrast material. Individualized dose optimization techniques were used for this CT. COMPARISON: No relevant priors. FINDINGS: Normal soft tissue structures. Normal calvarium. There is mild cerebral atrophy with widening of the extra-axial spaces and ventricular dilatation. There are areas of decreased attenuation within the white matter tracts of the supratentorial brain, consistent with microvascular disease changes. Focal area of encephalomalacia in the deep left posterior parietal occipital lobe. No significant edema is seen. This may represent an area of prior ischemic insult. Normal basal ganglia and thalami. Normal brainstem. Normal cerebellum. There is no intracranial hemorrhage. There are no findings of an acute ischemic infarction. Mucosal thickening of the left maxillary sinus. CT/Brain/Head without Contrast IMPRESSION: Chronic involutional changes of the brain. Focal area of encephalomalacia deep in the left posterior parietal occipital lobe suggestive of a possible ischemic insult. No acute edema or mass effect is seen. Electronically Signed: Roddy Brooks MD at 15:47 EST , Service support ,
--- NOTE | 2020-06-25 14:49 | EKG12_ITS ---
Test Reason : HT Blood Pressure : / mmHG Vent. Rate : 062 BPM Atrial Rate : 312 BPM P-R Int : 000 ms QRS Dur : 112 ms QT Int : 404 ms P-R-T Axes : 000 -37 071 degrees QTc Int : 410 ms Sinus Rhythm with first degree AV bloack (Mobitz I) Left axis deviation Abnormal ECG Confirmed by MIRTA OKEEFE, CARLEY ([id number]), non linear editor JOE ROMO ([id number]) on 06/26/2020 11:24:42 AM Referred By: ABHI Confirmed By:CARLEY KIRBY MD
--- NOTE | 2020-06-25 14:53 | ED.VISSUMM ---
- ER Visit Summary Date of Service: 06/25/20 Chief Complaint: Blood pressure elevation, feels off. History of Present Illness: The patient is a 74 M who has been having symptoms for 2 days. He states that he just feels off. His head feels cloudy and he does not feel like his normal self. He has checked his blood pressure and its been elevated above his normal. He has diffuse overall weakness. No slurred speech or facial droop. He denies any chest pain or fever. He does have mild intermittent shortness of breath with this. He has pain across his back and scapular areas. He denies any urinary symptoms. No coronavirus exposures. He has a history of back surgery, coronary disease and had stents placed multiple times over the past 6 years. Physical Examination: Vital signs reviewed. HEENT exam unremarkable. Heart is regular rate and rhythm without murmurs. Lungs are clear to auscultation. Abdomen is soft and nontender. Extremities reveal no edema. Skin exam normal. Neurologic exam normal. NIH stroke scale equals 0. Test Results: EKG is sinus rhythm with multiple PACs. There are nonspecific ST and T wave changes noted. Chest x-ray is unremarkable. CAT scan the head reveals chronic changes and an old area of stroke but nothing new. Laboratory studies are unremarkable aside for hemoglobin of 11.9. Troponin is 0.018 Emergency Department Course and Treatment: The patient was given normal saline. Upon reevaluation he feels much better. There are no new neurologic deficits on my reevaluation. I do not see any acute findings for the patient's symptoms. His repeat blood pressure is 158/70. Patient will monitor this at home. He is going to call his doctor for follow-up. He will increase his hydration at home. Treatment Plan: [] Disposition: Discharge Impression: Generalized weakness This note was generated with [employer] dictation software. It may contain incorrect words, spelling, and punctuation that were not noted in review of the chart prior to signing ED Disposition - Plan for ED Patient: Disposition: Home or Assisted Living Instructions: ED Hypertension, Established Referrals: Leonarda Smith DO [Primary Care Provider] -
[2020-06-25 15:31] LABS: Absolute Lymphocyte Count 1.01 X10^3/uL (0.83-4.51); Absolute Neutrophil Count 5.1 X10^3/uL (2.0-7.7); Basophil# 0.02 X10^3/uL; Basophil% 0.3 % (0-1); Eosinophil# 0.27 X10^3/uL; Eosinophils% 3.7 % (0-5); Hematocrit 37.1 % (40-54); Hemoglobin 11.9 g/dL (13.0-16.5); Lymphocyte # 1.01 X10^3/ul (4.0); Lymphocyte % 13.9 % (19-41); Mean Corp Hgb Conc 32.1 g/dL (32-36); Mean Corpuscular Hgb 32.6 pg (27.0-32.0); Mean Corpuscular Volume 101.6 fL (80-94); Mean Platelet Vol. 10.4 fl (6.2-12.0); Monocyte# 0.87 X10^3/uL; NRBC Flagged by Analyzer 0 % (0-5); Neutrophil # 5.09 X10^3/uL (2.7-7.7); Neutrophil % 69.8 % (47-70); Platelet Count 216 K/mm3 (150-450); RBC Distribution Width SD 44.9 fl (35.1-43.9); Red Blood Count 3.65 M/mm3 (4.6-6.2); White Blood Count 7.3 K/mm3 (4.4-11.0)
--- NOTE | 2020-06-25 15:40 | RAD_ITS ---
STUDY: X-RAY CHEST REASON FOR EXAM: Male, 74 years old. hypertension and and quot;just not feeling right. and quot; x2 days -- reports pain in upper back and shoulders TECHNIQUE: Frontal view COMPARISON: 11/11/2019 FINDINGS: Stable sternotomy wires. The lungs are not fully expanded. There is no demonstrated pleural abnormality. Borderline size heart. Normal mediastinum and saulo. Normal visualized pulmonary arteries. Normal visualized aortic arch and descending thoracic aorta. Normal visualized thoracic spine. Normal visualized ribs, clavicles, and shoulders. There is no demonstrated abnormality of the visualized soft tissue structures of the upper abdomen. RAD/Chest 1 View (Portable) IMPRESSION: No acute pulmonary pathology of the chest. Borderline cardiac shadow. Electronically Signed: Shaun Garcia DO at 16:59 EST Tel [phone], Service support ,
[2020-06-25 15:52] LABS: ALB/GLOB Ratio 1.2 RATIO (0.9-2.4); AST(SGOT) 19 U/L (15-37); Alanine Aminotransfer ALT/SGPT 19 U/L (16-61); Albumin, Serum 3.5 g/dL (3.2-5.0); Alkaline Phosphatase 100 U/L (45-117); Anion Gap 6 (5-15); BUN 17 mg/dL (7-18); BUN/Creat Ratio 15.6 RATIO (10-20); Calcium,Total 8.6 mg/dL (8.5-10.1); Chloride 107 mmol/L (98-107); Creatinine, Serum 1.09 mg/dL (0.70-1.30); EST Glomerular Filtration Rate 70 mL/min (>60); Est Glom Filt Rate - Afr Amer 85 mL/min (>60); Estimated Creatinine Clearance 56.65 ml/min; Glucose 99 mg/dL (74-106); Potassium 3.9 mmol/L (3.5-5.1); Protein, Total 6.5 g/dL (6.4-8.2); Sodium Level 139 mmol/L (136-145)
[2020-06-25 16:20] VITALS: BP 161/75; PULSE 54; RESP 14; O2SAT 95
[2020-06-25 17:41] VITALS: BP 150/78; PULSE 60; RESP 16; O2SAT 97
== END 2020-06-25 17:49 | disposition home or self-care (01) ==
PROVIDERS: Emergency Provider Emergency Medicine; PCP Family Medicine
DX: R53.1 Weakness (principal); I49.1 Atrial premature depolarization; I25.10 Atherosclerotic heart disease of native coronary artery without angina pectoris; I10 Essential (primary) hypertension; Z79.02 Long term (current) use of antithrombotics/antiplatelets; Z79.82 Long term (current) use of aspirin; Z79.899 Other long term (current) drug therapy; Z86.73 Personal history of transient ischemic attack (TIA), and cerebral infarction without residual deficits; Z95.1 Presence of aortocoronary bypass graft; Z95.5 Presence of coronary angioplasty implant and graft
CPT/HCPCS: 70450; 71045; 80053; 84484; 85025; 93005; 99284; J7030; A4216

== ENCOUNTER → 2021-01-04 06:03 | Outpatient (CLI) | payer OTHER, MEDICARE, SELFPAY ==
[2019-07-15 08:43] VITALS: BMI 32.5
[2020-11-12 10:40] VITALS: BMI 32.1
[2021-01-04 08:14] LABS: AST(SGOT) 26 U/L (15-37); Alanine Aminotransfer ALT/SGPT 25 U/L (16-61); Albumin, Serum 3.7 g/dL (3.2-5.0); Alkaline Phosphatase 73 U/L (45-117); Cholesterol 202 mg/dL (200); Globulin 3.5 g/dL (2.2-4.2); High Density Lipoprotein 46 mg/dL; Protein, Total 7.2 g/dL (6.4-8.2); Triglycerides 78 mg/dL; Very Low Density Lipoprotein 16 mg/dL (5-40)
== END ==
PROVIDERS: PCP Family Medicine; Referring Provider Internal Medicine Cardiovascular Disease; Visit Provider Internal Medicine Cardiovascular Disease
DX: E78.00 Pure hypercholesterolemia, unspecified (principal); E78.5 Hyperlipidemia, unspecified
CPT/HCPCS: 36415; 80061; 80076

== ENCOUNTER → 2021-05-06 08:39 | Outpatient (CLI) | payer OTHER, MEDICARE, SELFPAY ==
[2019-07-15 08:43] VITALS: BMI 32.5
[2021-05-06 10:13] LABS: Hematocrit 41.5 % (40-54); Hemoglobin 13.4 g/dL (13.0-16.5); Mean Corp Hgb Conc 32.3 g/dL (32-36); Mean Corpuscular Hgb 33.3 pg (27.0-32.0); Mean Platelet Vol. 10.5 fl (6.2-12.0); Platelet Count 232 K/mm3 (150-450); RBC Distribution Width CV 12.1 % (11.6-14.6); RBC Distribution Width SD 46.4 fl (35.1-43.9); Red Blood Count 4.03 M/mm3 (4.6-6.2); White Blood Count 8.1 K/mm3 (4.4-11.0)
[2021-05-06 10:41] LABS: ALB/GLOB Ratio 0.9 RATIO (0.9-2.4); AST(SGOT) 24 U/L (15-37); Alanine Aminotransfer ALT/SGPT 23 U/L (16-61); Albumin, Serum 3.4 g/dL (3.2-5.0); Alkaline Phosphatase 72 U/L (45-117); Anion Gap 3 (5-15); BUN 20 mg/dL (7-18); BUN/Creat Ratio 18.3 RATIO (10-20); Calcium,Total 8.9 mg/dL (8.5-10.1); Chloride 108 mmol/L (98-107); Cholesterol 197 mg/dL (200); Creatinine, Serum 1.09 mg/dL (0.70-1.30); EST Glomerular Filtration Rate 70 mL/min (>60); Est Glom Filt Rate - Afr Amer 84 mL/min (>60); Globulin 3.6 g/dL (2.2-4.2); Glucose 95 mg/dL (74-106); High Density Lipoprotein 54 mg/dL; Potassium 4.3 mmol/L (3.5-5.1); Sodium Level 141 mmol/L (136-145); Triglycerides 74 mg/dL; Very Low Density Lipoprotein 15 mg/dL (5-40)
== END ==
PROVIDERS: PCP Family Medicine; Referring Provider Internal Medicine Cardiovascular Disease; Visit Provider Internal Medicine Cardiovascular Disease
DX: I10 Essential (primary) hypertension (principal); R53.83 Other fatigue; E78.5 Hyperlipidemia, unspecified; I25.810 Atherosclerosis of coronary artery bypass graft(s) without angina pectoris; Z95.5 Presence of coronary angioplasty implant and graft
CPT/HCPCS: 36415; 80053; 80061; 84443; 85027

== ENCOUNTER 2021-07-30 12:31 | Observation (INO) | payer OTHER, MEDICARE, SELFPAY ==
[2019-07-15 08:43] VITALS: BMI 32.5
[2021-07-30] VITALS (9 sets, daily range): BP systolic 133–178; BP diastolic 61–88; PULSE 54–69; RESP 16–18; TEMP 36.4–36.6; O2SAT 96–99; BMI 31.9; BMI 31.6
--- NOTE | 2021-07-30 13:22 | CT_ITS ---
STUDY: CT HEAD STROKE PROTOCOL W/O CONTRAST INJECTION REASON FOR EXAM: Male, 75 years old. Neuro deficit, acute, stroke suspected RADIATION DOSAGE (If Supplied By Facility): CTDIvol = ( 44.99 ) mGy, DLP = ( 796.11 ) mGycm TECHNIQUE: Transaxial CT imaging of the brain was performed without administration of intravenous contrast material. Individualized dose optimization techniques were used for this CT. COMPARISON: Comparison is made with prior study dated 06/25/2020. FINDINGS: Normal soft tissue structures. Normal calvarium. There is moderate cerebral atrophy with widening of the extra-axial spaces and ventricular dilatation. There are areas of decreased attenuation within the white matter tracts of the supratentorial brain, consistent with microvascular disease changes. Stable focal encephalomalacia in the posterior left parietal occipital lobes. Normal basal ganglia and thalami. Normal brainstem. Normal cerebellum. There is no intracranial hemorrhage. There are no findings of an acute ischemic infarction. Atherosclerotic calcification of the vertebral arteries and cavernous portions of the internal carotid arteries bilaterally. Normal visualized paranasal sinuses. CT/STROKE Brain/Head without Cont IMPRESSION: Chronic involutional changes of the brain. Stable encephalomalacia in the posterior aspect of the left parietal occipital lobe. N.B. : The above Results were Read Back by Roddy Brooks MD to Abidas Cohen and understanding confirmed on 07/30/2021 13:56:50 (ET). Electronically Signed: Roddy Brooks MD at 13:58 EST ,
--- NOTE | 2021-07-30 13:22 | EKG12_ITS ---
Test Reason : NEURO Blood Pressure : / mmHG Vent. Rate : 054 BPM Atrial Rate : 054 BPM P-R Int : 208 ms QRS Dur : 120 ms QT Int : 428 ms P-R-T Axes : -11 -38 065 degrees QTc Int : 405 ms Sinus bradycardia Left axis deviation Abnormal ECG Confirmed by DEENA OKEEFE, ROSEMARY ([id number]), science editor SHAQ CHEW ([id number]) on 08/02/2021 11:13:16 AM Referred By: BB Confirmed By:ROSEMARY SHAFFER MD
[2021-07-30 13:45] LABS: Absolute Lymphocyte Count 1.14 X10^3/uL (0.83-4.51); Absolute Neutrophil Count 5.1 X10^3/uL (2.0-7.7); Basophil# 0.02 X10^3/uL; Basophil% 0.3 % (0-1); Eosinophil# 0.26 X10^3/uL; Eosinophils% 3.4 % (0-5); Hematocrit 44.7 % (40-54); Hemoglobin 14.9 g/dL (13.0-16.5); Lymphocyte # 1.14 X10^3/ul (0.83-4.51); Lymphocyte % 14.9 % (19-41); Mean Corp Hgb Conc 33.3 g/dL (32-36); Mean Corpuscular Hgb 33.9 pg (27.0-32.0); Mean Corpuscular Volume 101.6 fL (80-94); Monocyte# 1.08 X10^3/uL; Monocyte% 14.1 % (0-10); NRBC Flagged by Analyzer 0 % (0-5); Neutrophil % 66.6 % (47-70); Platelet Count 239 K/mm3 (150-450); RBC Distribution Width CV 11.9 % (11.6-14.6); RBC Distribution Width SD 44.4 fl (35.1-43.9); White Blood Count 7.7 K/mm3 (4.4-11.0)
--- NOTE | 2021-07-30 13:48 | RAD_ITS ---
STUDY: X-RAY CHEST REASON FOR EXAM: Male, 75 years old. Neuro deficit, acute, stroke suspected TECHNIQUE: Single AP portable view of the chest. COMPARISON: Comparison is made with prior study dated 06/25/2020. FINDINGS: EKG electrodes are seen. There is elevation of the right hemidiaphragm. There is no demonstrated pleural abnormality. Sternal cerclage wires and vascular clips are present from a prior sternotomy and coronary artery bypass graft procedure (CABG). Borderline cardiomegaly. Normal mediastinum and saulo. Normal visualized pulmonary arteries. There is atherosclerotic tortuosity of the aortic arch and descending thoracic aorta. There are diffuse degenerative changes of the visualized thoracic spine. Normal visualized ribs, clavicles, and shoulders. There is no demonstrated abnormality of the visualized soft tissue structures of the upper abdomen. RAD/Chest 1 View IMPRESSION: Status post CABG. Borderline cardiomegaly. Electronically Signed: Roddy Brooks MD at 13:59 EST ,
[2021-07-30 13:59] LABS: Anion Gap 5 (5-15); BUN 16 mg/dL (7-18); BUN/Creat Ratio 14.7 RATIO (10-20); Calcium,Total 8.9 mg/dL (8.5-10.1); Chloride 105 mmol/L (98-107); Creatinine, Serum 1.09 mg/dL (0.70-1.30); EST Glomerular Filtration Rate 70 mL/min (>60); Est Glom Filt Rate - Afr Amer 84 mL/min (>60); Estimated Creatinine Clearance 55.78 ml/min; Glucose 102 mg/dL (74-106); Potassium 4.3 mmol/L (3.5-5.1); Sodium Level 138 mmol/L (136-145); Troponin-I HS 16 pg/mL (3.0-78.0)
--- NOTE | 2021-07-30 14:20 | ED.VIS.STROK ---
HPI History of Present Illness Chief Complaint: Neuro S/Sx Informant: patient and family Onset/Context/Timing Onset: Weeks (2) Context: Gradual Onset Timing: - (Notices when he is walking and something is off when he is swimming) Quality and Location: Positive for Difficulty with Ambulation Onset: Unclear exactly Current Severity: Moderate Maximum Severity: Moderate Worsened by: Walking Relieved by: Resting Associated Symptoms Associated Symptoms: Negative for Headache, Nausea, Vomiting and Chest Pain Narrative Narrative: Patient has been off balance and having disequilibrium without any dali dizziness in his head although he sometimes feels some funny symptoms in the posterior aspect of his head that feels like something crawling around. No dali headache. No loss of consciousness, nausea, vomiting, tinnitus, earache, or problems moving his head around. However he has felt like he was going to fall multiple times with walking and it seems like it is getting worse in the past week. 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 He has been on clopidogrel. He denies any other focal neurologic symptoms and when he is resting he is asymptomatic. [facility] Medical History Atherosclerosis of coronary artery bypass graft of [place] heart without angina pectoris Atrial septal defect Bilateral carotid artery disease Cerebrovascular accident Essential (primary) hypertension History of left heart catheterization (LHC) (~11/26/19) Hyperlipidemia Premature ventricular complex Home Medications garlic 1,000 mg capsule 1,000 mg PO DAILY cap 03/06/19 [History Last Taken 3 Days Ago ~07/27/21] nitroglycerin 0.4 mg sublingual tablet 0.4 mg SUBLINGUAL Q5M PRN #25 tab 04/17/19 [Rx Last Taken Unknown] Handicap Parking Placard #1 ea 11/12/19 [Rx Last Taken Unknown] omeprazole 40 mg capsule,delayed release 40 mg PO DAILY PRN cap 11/12/20 [History Last Taken 3 Days Ago ~07/27/21] clopidogrel 75 mg tablet 75 mg PO DAILY #90 tab 05/18/21 [Rx Last Taken 07/30/21] carvedilol 3.125 mg tablet 3.125 mg PO BID #180 tab 05/19/21 [Rx Last Taken 07/30/21] aspirin 81 mg PO DAILY 07/30/21 [History Last Taken 07/30/21] coQ10 (ubiquinol) 100 mg PO DAILY 07/30/21 [History Last Taken 07/30/21] Allergy/AdvReac Type Severity Reaction Status Date / Time Penicillins [PCN] Allergy Mild Rash Verified 07/30/21 12:35 atorvastatin AdvReac Severe Myalgias Verified 07/30/21 12:35 oxycodone AdvReac Severe Hallucinati Verified 07/30/21 12:35 ons clopidogrel [From Plavix] AdvReac Intermediate Burning Verified 07/30/21 12:35 sensation in arms and chest Surgical History Aortocoronary bypass status (~07/31/03) History of back surgery History of coronary artery stent placement (03/30/19) Social History Smoking Status: Never smoker ROS ROS ED Constitutional Constitutional ED: Denies chills or fever(s) Eyes Eyes: Denies change in vision or diplopia ENT ENT ED: Denies rhinorrhea or sore throat Cardiovascular Cardiovascular: Denies chest pain or palpitations Respiratory/Chest Respiratory/Chest: Denies cough or dyspnea Gastrointestinal Gastrointestinal: Denies abdominal pain, diarrhea, nausea or vomiting Genitourinary Genitourinary ED: Denies dysuria or hematuria Musculoskeletal Musculoskeletal: Denies back pain or neck pain Integumentary Denies abscess or rash Neurologic Neurologic: Denies headache(s), paresthesias or weakness Psychiatric Psychiatric: Denies anxiety or suicidal thoughts EXAM Physical Exam Const Vital Signs: 07/30/21 12:32 07/30/21 13:26 07/30/21 14:12 Temperature 97.5 F L Temperature Source Temporal Pulse Rate 61 69 Respiratory Rate 18 16 Blood Pressure 172/83 H 148/88 H Blood Pressure Mean 112 108 Pulse Ox 98 97 Oxygen Delivery Method Room Air Room Air Room Air Positive well nourished and well developed General Appearance ED: well developed and NAD HEENT Reports head/scalp atraumatic, TM's clear, TM's normal bilaterally and moist mucous membranes normocephalic and atraumatic Tympanic Membrane ED: Yes TM's clear Eyes PERRL and EOMs intact bilaterally Neck full ROM, no lymphadenopathy, supple, no meningeal signs and no carotid bruits Resp normal respiratory effort and clear to auscultation bilaterally Cardio regular rate, regular rhythm and no murmurs GI non-tender and non-distended Auscultation: normoactive bowel sounds Palpation: soft Back/Spine no CVA tenderness General Back: other FROM Extremity normal to inspection General Extremety ED: Negative for edema, pulses abnormal or tenderness General Extremity: Negative for edema or pulses abnormal Neuro oriented x3, CN's II-XII intact bilaterally and no sensory deficits noted Neuro Narrative: Normal feugof-je-jyni and heel sharif bilaterally Sensorium / Orientation: awake and alert Motor Exam: strength 5/5 throughout Skin no rashes or lesions noted and no wounds STROKE Vital Signs/Narrative: Vital Signs Temp Pulse Resp BP Pulse Ox 07/30/21 14:12 69 16 148/88 H 97 07/30/21 12:32 97.5 F L 61 18 172/83 H 98 Inital Vital Signs reviewed: Yes NIHSS Initial: 1a Level of Consciousness: 0 1b LOC Questions (Score 2 if aphasic/stupor): 0 1c LOC Commands (Only score 1st attempt): 0 2 Best Gaze (If aphasic, use reflexive mvmts.): 0 3 Visual: 0 4 Facial Palsy: 0 5 Motor Arm Right (UN = amputation/fusion): 0 5 Motor Arm Left: 0 6 Motor Leg Right: 0 6 Motor Leg Left: 0 7 Limb ataxia (Only + if out of proportion): 0 8 Sensory (Aphasia/stupor=0 or 1, coma=2): 0 9 Best Language: 0 10 Dysarthria (mute, coma=2, intubated=UN): 0 11 Extinction and Inattention (only scored if +): 0 Total Score: 0 MDM MDM MDM Narrative Medical decision making narrative: Patient's blood pressure is 172/83 initially, however I do not think that is causing all of this since he has the symptoms every time he walks basically, and he has a hard time describing what he feels like when he is swimming but he states something is off and he has the sensation of brain fog all of the time. He states this is new for him. He is afraid he is going to fall. He is on clopidogrel, and that could be dangerous if he fell and hit his head. For these reasons I think it would be reasonable to admit him for further evaluation of work-up including MRI; the CT shows encephalomalacia from an old stroke, this was seen in 2020, there were no changes from it, however he could also have something acute in the same area causing his symptoms, as my concern is his posterior fossa. Lab Data Attestation: I reviewed the patient's lab results. Labs: Laboratory Results - last 24 hr 07/30/21 07/30/21 13:30 13:30 WBC 7.7 RBC 4.40 L Hgb 14.9 Hct 44.7 MCV 101.6 H MCH 33.9 H MCHC 33.3 RDW Std Deviation 44.4 H RDW Coeff of Neena 11.9 Plt Count 239 MPV 10.0 Immature Gran % (Auto) 0.700 Neut % (Auto) 66.6 Lymph % (Auto) 14.9 L Banks % (Auto) 14.1 H Eos % (Auto) 3.4 Baso % (Auto) 0.3 Absolute Neuts (auto) 5.1 Absolute Lymphs (auto) 1.14 Nucleated RBC % 0 Sodium 138 Potassium 4.3 Chloride 105 Carbon Dioxide 28.0 Anion Gap 5 BUN 16 Creatinine 1.09 Estim Creat Clear Calc 55.78 Est GFR (MDRD) Af Amer 84 Est GFR (MDRD) Non-Af 70 BUN/Creatinine Ratio 14.7 Glucose 102 Calcium 8.9 Troponin I High Sens 16 Radiography Diagnostic Testing: Clinical Impression(s) from Imaging Studies Brain CT 07/30/21 13:22 IMPRESSION: Chronic involutional changes of the brain. Stable encephalomalacia in the posterior aspect of the left parietal occipital lobe. N.B. : The above Results were Read Back by Roddy Brooks MD to Abdias Cohen and understanding confirmed on 07/30/2021 13:56:50 (ET). Electronically Signed: Roddy Brooks MD at 13:58 EST , ADDENDUM: 07/30/21 1404 IMPRESSION: Chronic involutional changes of the brain. Stable encephalomalacia in the posterior aspect of the left parietal occipital lobe. N.B. : The above Results were Read Back by Roddy Brooks MD to Abdias Noel and understanding confirmed on 07/30/2021 13:56:50 (ET). Electronically Signed: Roddy Brooks MD at 13:58 EST , Chest X-Ray 07/30/21 13:48 IMPRESSION: Status post CABG. Borderline cardiomegaly. Electronically Signed: Roddy Brooks MD at 13:59 EST , EKG Initial EKG: Interpretation: Sinus Rhythm, No Acute Injury Pattern and LAFB Prior EKG tracings: available for review Prior: Unchanged Stroke Documentation Questions Stroke Team Activated: No (Due to timing; no IV TPA indicated, low suspicion for LVO given NIH 0) Discharge Plan Dx/Rx/DC Orders Clinical Impression: Dysequilibrium, At high risk for falls Disposition Disposition: Acute Care Hospital [facility]
--- NOTE | 2021-07-30 14:58 | HP.PCM.HOS_ITS ---
HPI - General General Date of Admission: 07/30/21 HPI Narrative NICOLLE TREADWELL, is a 75 M with a PMH as outlined who presents with a complaint of dizziness and unsteadiness on his feet which has been going on for ~ a month and has gradually worsened. He says he feels unsteady on his feet, and does have some dizziness. This is worsened on turning his head from side to side and when he wakes up in the mornings. He denies any blurred vision, slurring of his speech, any weakness or numbness or tingling in his extremities. Review of systems otherwise negative. He denies any recent upper respiratory or gastrointestinal infection. 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 Alberts. He says the ASD was closed with a stitch when he had his CABG done several years ago but this subsequently opened up so he is following up with cardiology. Vitals in the ED were blood pressure of 166/70, pulse rate of 59 and respiratory to 16 and his temperature was 97.5 Fahrenheit. He was saturating at 98% on room air. CBC showed WBC of 7.7 with hemoglobin of 14.9 and platelets of 239. Chemistry shows sodium of 138 with bicarb of 28 and creatinine of 1.09. Chest x-ray showed borderline cardiomegaly and s/p CABG. CT of the brain showed chronic involutional changes and stable encephalomalacia in the posterior aspect of the left parietal occipital lobe. 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 Atrial septal defect Bilateral carotid artery disease Cerebrovascular accident Essential (primary) hypertension History of left heart catheterization (LHC) (~11/26/19) Hyperlipidemia Premature ventricular complex Home Medications garlic 1,000 mg capsule 1,000 mg PO DAILY cap 03/06/19 [History Last Taken 3 Days Ago ~07/27/21] nitroglycerin 0.4 mg sublingual tablet 0.4 mg SUBLINGUAL Q5M PRN #25 tab 04/17/19 [Rx Last Taken Unknown] Handicap Parking Placard #1 ea 11/12/19 [Rx Last Taken Unknown] omeprazole 40 mg capsule,delayed release 40 mg PO DAILY PRN cap 11/12/20 [History Last Taken 3 Days Ago ~07/27/21] clopidogrel 75 mg tablet 75 mg PO DAILY #90 tab 05/18/21 [Rx Last Taken 07/30/21] carvedilol 3.125 mg tablet 3.125 mg PO BID #180 tab 05/19/21 [Rx Last Taken 07/30/21] aspirin 81 mg PO DAILY 07/30/21 [History Last Taken 07/30/21] coQ10 (ubiquinol) 100 mg PO DAILY 07/30/21 [History Last Taken 07/30/21] Allergy/AdvReac Type Severity Reaction Status Date / Time Penicillins [PCN] Allergy Mild Rash Verified 07/30/21 12:35 atorvastatin AdvReac Severe Myalgias Verified 07/30/21 12:35 oxycodone AdvReac Severe Hallucinati Verified 07/30/21 12:35 ons clopidogrel [From Plavix] AdvReac Intermediate Burning Verified 07/30/21 12:35 sensation in arms and chest Surgical History Aortocoronary bypass status (~07/31/03) History of back surgery History of coronary artery stent placement (03/30/19) Social History Smoking Status: Never smoker ROS Constitutional Constitutional: Reports fatigue and weakness; Denies anorexia, chills, fever(s), malaise or night sweats Eyes Eyes: Denies blurry vision, change in vision or loss of vision ENT HEENT: Denies dysphagia or headache(s) Cardiovascular Cardiovascular: Denies chest pain, dyspnea on exertion, edema, lightheadedness, orthopnea, palpitations, rapid heart rate or syncope Respiratory/Chest Respiratory/Chest: Denies cough, dyspnea, productive cough, shortness of breath at rest or shortness of breath with exertion Gastrointestinal Gastrointestinal: Denies abdominal pain, constipation, diarrhea, nausea or vomiting Genitourinary Genitourinary: Denies burning urination, dysuria, urinary frequency or urinary hesitancy Musculoskeletal Musculoskeletal: Denies arthralgias, back pain, joint swelling or myalgias Neurologic Neurologic: Reports disequilibrium, dizziness and numbness; Denies abnormal gait, abnormal speech, confusion, focal weakness, headache(s), paresthesias, seizure-like activity, seizures, syncope or tingling Psychiatric Psychiatric: Denies anxiety or depression Endocrine Endocrinology: Denies change in body appearance Vital Signs Vital Signs Vital Signs: 07/30/21 12:32 07/30/21 13:26 07/30/21 14:12 Temperature 97.5 F L Temperature Source Temporal Pulse Rate 61 69 Respiratory Rate 18 16 Blood Pressure 172/83 H 148/88 H Blood Pressure Mean 112 108 Pulse Ox 98 97 Oxygen Delivery Method Room Air Room Air Room Air 07/30/21 14:38 Temperature 97.5 F L Temperature Source Temporal Pulse Rate 59 L Respiratory Rate 16 Blood Pressure 166/70 H Blood Pressure Mean 102 Pulse Ox 98 Oxygen Delivery Method Room Air Weight Weight: 209 lb 15.845 oz Body Mass Index (BMI) 31.9 Physical Exam Const oriented x3 and no apparent distress General Appearance: cooperative HEENT normocephalic, head/scalp atraumatic, hearing grossly normal bilaterally and moist oral mucous membranes Eyes PERRL, EOMs intact bilaterally and conjunctivae normal Neck no lymphadenopathy, supple and no JVD Resp normal respiratory effort, no retractions, no use of accessory muscles and clear to auscultation bilaterally Cardio regular rate, regular rhythm, S1 normal heart sound, S2 normal heart sound and no murmurs GI normal to inspection, nondistended, normoactive bowel sounds, soft to palpation, non-tender and non-distended Extremity normal to inspection, full ROM and no clubbing, cyanosis or edema Peripheral Pulses: Yes pulses 2+ throughout Skin no rashes or lesions noted Neuro oriented x3, CN's II-XII intact bilaterally and moves all extremities Sensorium / Orientation: awake and alert Motor Exam: strength 5/5 throughout Psych affect normal Results Lab / Micro Data Result Diagrams: 07/30/21 13:30 07/30/21 13:30 Labs: Laboratory Results - last 24 hr 07/30/21 13:30: WBC 7.7, RBC 4.40 L, Hgb 14.9, Hct 44.7, MCV 101.6 H, MCH 33.9 H , MCHC 33.3, RDW Std Deviation 44.4 H, RDW Coeff of Neena 11.9, Plt Count 239, MPV 10.0, Immature Gran % (Auto) 0.700, Neut % (Auto) 66.6, Lymph % (Auto) 14.9 L, [place] % (Auto) 14.1 H, Eos % (Auto) 3.4, Baso % (Auto) 0.3, Absolute Neuts (auto) 5.1, Absolute Lymphs (auto) 1.14, Nucleated RBC % 0 07/30/21 13:30: Sodium 138, Potassium 4.3, Chloride 105, Carbon Dioxide 28.0, A nion Gap 5, BUN 16, Creatinine 1.09, Estim Creat Clear Calc 55.78, Est GFR (MDRD) Af Amer 84, Est GFR (MDRD) Non-Af 70, BUN/Creatinine Ratio 14.7, Glucose 102, Calcium 8.9, Troponin I High Sens [address] 07/30/21 13:22 IMPRESSION: Chronic involutional changes of the brain. Stable encephalomalacia in the posterior aspect of the left parietal occipital lobe. N.B. : The above Results were Read Back by Roddy Brooks MD to Abdias Cohen and understanding confirmed on 07/30/2021 13:56:50 (ET). Electronically Signed: Roddy Brooks MD at 13:58 EST , ADDENDUM: 07/30/21 1404 IMPRESSION: Chronic involutional changes of the brain. Stable encephalomalacia in the posterior aspect of the left parietal occipital lobe. N.B. : The above Results were Read Back by Roddy Brooks MD to Abdias Cohen and understanding confirmed on 07/30/2021 13:56:50 (ET). Electronically Signed: Roddy Brooks MD at 13:58 EST , Chest X-Ray 07/30/21 13:48 IMPRESSION: Status post CABG. Borderline cardiomegaly. Electronically Signed: Roddy Brooks MD at 13:59 EST , Assessment & Plan Assessment/Plan (1) Dysequilibrium: PLAN: #Dizziness and vertigo * admit to PCU * CT of the brain showed evidence of chronic involutional changes and stable encephalomalacia * get MRI of the brain. * 2D echo * continue aspirin and plavix as well as high intensity statin * PT/.OT consult * fall precautions * Patient counseled that if stroke is ruled out and his symptoms might be due to BPPV and so he will benefit from a trial of meclizine * Hold BP meds to allow for permissive hypertension just in case is a stroke. * #CAD s/p CABG #Hyperlipidemia: On statin #History of ASD * States this was closed with stitches when he had his CABG done but this test was subsequently opened up. * Follows with cardiology * Currently on aspirin and Plavix * #Benign essential hypertension * On carvedilol * DVT prophylaxis: Lovenox CODE STATUS: Full code * Patient counseled extensively about different types of CODE STATUS including full code, DNR CCA and DNR CCA. Patient elects to be full code. * Total bcih-pm-vgcv time 16 minutes. Charges/Coding Visit Charges OBSV E&M: 77558 Initial observation care L2 Multi Select Codes Hospitalists' Procedures Procedures: 15219 Advncd Care Plan 30 Min
--- NOTE | 2021-07-30 16:20 | MRI_ITS ---
STUDY: MRI BRAIN WITHOUT CONTRAST REASON FOR EXAM: Male, 75 years old. vertigo TECHNIQUE: Standardized multiplanar fat and water weighted pulse sequences were obtained. COMPARISON: 07/30/2021 FINDINGS: Atrophy and periventricular white matter ischemic changes without mass effect or restricted diffusion... Old left parietal infarct.. Normal bilateral basal ganglia. Normal thalami. There is no extra-axial fluid accumulation. Normal flow voids within the major intracranial circulation suggesting patency by spin echo criteria. Normal sella turcica, pituitary gland, infundibular stalk, optic chiasm and hypothalamus. Normal tectal plate and pineal gland. Normal midbrain, piedad and medulla. Normal cerebellum. Normal basal cisterns. Normal bilateral temporal bones. Normal bilateral internal auditory canals. No demonstrated orbital abnormality, within the constraints of a routine brain study. Mild mucosal thickening of left maxillary sinus.. Normal calvarium and skull base. Normal visualized soft tissue structures. Normal visualized upper cervical spine. MRI/Brain without Contrast IMPRESSION: Mild atrophy and periventricular white matter ischemic change without evidence for acute infarct. Old left parietal lobe infarct.. Electronically Signed: Sascha Pena MD at 21:01 EST Reading Location ID and State: [facility] / [place] , Service support ,
--- NOTE | 2021-07-30 16:24 | CHAPLAIN ---
Type of Pastoral Visit _x__ Initial Visit ___ Follow-up Visit ___ On-call Visit ___ General Patient Visit ___ Spiritual Assessment ___ Family Conference ___ Bereavement ___ Rapid Response ___ Code Blue ___ Other (describe below) Pastoral Care Referral From ___ Patient _x__ Family ___ Nurse ___ Physician ___ Juke Box Mechanic ___ Header Boss ___ Other (describe below) Sacrament/Intervention _x__ Active listening ___ Anointing ___ Jew ___ Bereavement ___ Communion _x__ Shefali exploration ___ _x__ Life review _x__ Prayer ___ Reconciliation ___ Sacrament of Sick _x__ Supportive presence ___ Wedding ___ Other (describe below) Pastoral Comments patient is known to this location manager; family requested spiritual care support and presence while in the ED; followed pt when transferred to PCU; offer of support and presence welcomed; prayer given; no other needs at this time
[2021-07-30] MEDS: 0.9% Normal Saline 1,000 ML 100 ML IV (17:23)
[2021-07-30] MEDS: 0.9% Saline Lock 10 ML Syringe IV (17:23)
[2021-07-30 17:35] LABS: Troponin-I HS 16 pg/mL (3.0-78.0)
[2021-07-30] MEDS: Acetaminophen 325 MG Tablet 650 MG PO (23:02)
[2021-07-31 03:23] VITALS: PULSE 51
[2021-07-31 03:37] VITALS: BP 140/72; PULSE 55; RESP 18; TEMP 36.6; O2SAT 97
[2021-07-31 06:07] LABS: Absolute Lymphocyte Count 0.97 X10^3/uL (0.83-4.51); Absolute Neutrophil Count 3.8 X10^3/uL (2.0-7.7); Basophil# 0.02 X10^3/uL; Basophil% 0.3 % (0-1); Eosinophil# 0.23 X10^3/uL; Eosinophils% 3.9 % (0-5); Hematocrit 39.9 % (40-54); Hemoglobin 13.3 g/dL (13.0-16.5); Lymphocyte # 0.97 X10^3/ul (0.83-4.51); Lymphocyte % 16.5 % (19-41); Mean Corp Hgb Conc 33.3 g/dL (32-36); Mean Corpuscular Hgb 34.2 pg (27.0-32.0); Mean Corpuscular Volume 102.6 fL (80-94); Mean Platelet Vol. 10.3 fl (6.2-12.0); Monocyte# 0.79 X10^3/uL; Monocyte% 13.5 % (0-10); NRBC Flagged by Analyzer 0 % (0-5); Neutrophil # 3.84 X10^3/uL (2.7-7.7); Neutrophil % 65.5 % (47-70); Platelet Count 202 K/mm3 (150-450); RBC Distribution Width CV 11.9 % (11.6-14.6); RBC Distribution Width SD 45.1 fl (35.1-43.9); Red Blood Count 3.89 M/mm3 (4.6-6.2); White Blood Count 5.9 K/mm3 (4.4-11.0)
[2021-07-31 06:41] LABS: Anion Gap 4 (5-15); BUN 18 mg/dL (7-18); BUN/Creat Ratio 17.6 RATIO (10-20); Calcium,Total 8.1 mg/dL (8.5-10.1); Chloride 108 mmol/L (98-107); Cholesterol 166 mg/dL (200); Creatinine, Serum 1.02 mg/dL (0.70-1.30); EST Glomerular Filtration Rate 75 mL/min (>60); Est Glom Filt Rate - Afr Amer 91 mL/min (>60); Estimated Creatinine Clearance 59.61 ml/min; Glucose 99 mg/dL (74-106); High Density Lipoprotein 38 mg/dL; Potassium 4.1 mmol/L (3.5-5.1); Sodium Level 139 mmol/L (136-145); Triglycerides 73 mg/dL; Very Low Density Lipoprotein 15 mg/dL (5-40)
[2021-07-31 07:00] VITALS: PULSE 53
--- NOTE | 2021-07-31 07:48 | CT_ITS ---
STUDY: CTA HEAD AND NECK WITH CONTRAST REASON FOR EXAM: Male, 75 years old. tia RADIATION DOSAGE (If Supplied By Facility): CTDIvol = ( 34.11 ) mGy, DLP = ( 1584.72 ) mGycm TECHNIQUE: CT angiography was performed with a multi-detector CT scanner. Data acquisition was obtained from the skull base through the vertex following intravenous administration of IV 100mL [id number]-370. MIP images were reconstructed from the axial data set. Post-processing of the angiographic images was performed, with multiplanar reformation and 3D reconstruction. Individualized dose optimization techniques were used for this CT. COMPARISON: 07/30/2021 FINDINGS: Normal bilateral petrous carotid arteries. There is calcified plaque formation of the right cavernous carotid artery, without a cross-sectional luminal stenosis. There is calcified plaque formation of the left cavernous carotid artery, without a cross-sectional luminal stenosis. Normal right A1 segments of the anterior cerebral artery. Normal left A1 segments of the anterior cerebral artery. Normal intact anterior communicating artery (ACOM). Normal bilateral A2 segments of the anterior cerebral arteries. Normal right M1 and M2 segments of the middle cerebral arteries, with a normal M1 bifurcation. Normal left M1 and M2 segments of the middle cerebral arteries, with a normal M1 bifurcation. Normal right posterior communicating artery (PCOM). 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 Normal bilateral vertebral arteries. Normal basilar artery with a normal basilar bifurcation. The visualized bilateral superior cerebellar (SCA) arteries are normal. Normal bilateral P1, P2 and visualized P3 segments of the posterior cerebral arteries. There is no demonstrated aneurysm of the [place]. There is no demonstrated abnormality of the visualized brain. AORTIC ARCH: Normal visualized aortic arch. Normal origins of the brachiocephalic, left common carotid, and left subclavian arteries. RIGHT CAROTID ARTERIES: Normal right common carotid artery (CCA). There is mild atherosclerotic plaque formation with minimal narrowing of the right carotid bulb. There is mild atherosclerotic plaque formation of the origin of the right internal carotid artery with less than 50% cross sectional diameter stenosis. Normal visualized cervical portion of the right internal carotid artery. Normal origin of the right external carotid artery (ECA). LEFT CAROTID ARTERIES: Normal left common carotid artery (CCA). There is moderate atherosclerotic plaque formation with moderate narrowing of the carotid bulb. Normal origin of the left internal carotid (ICA) artery without a hemodynamically significant stenosis. Normal visualized cervical portion of the left internal carotid artery. Normal origin of the left external carotid artery (ECA). VERTEBRAL ARTERIES: Normal bilateral vertebral arteries. CT/STROKE CTA Head AND Neck W/Con IMPRESSION: 1. Normal CTA Head with contrast. 2. Mild (20%) right carotid stenosis. 3. Mild (40%) left carotid stenosis. 4. Patent vertebral arteries bilaterally. N.B. : The above Results were Read Back by Aiden Bishop MD to ANASTASIA ACE MD, and understanding confirmed on 07/31/2021 08:39:11 (ET). Electronically Signed: Aiden Bishop MD at 8:40 EST ,
[2021-07-31 07:53] VITALS: O2SAT 97
--- NOTE | 2021-07-31 08:00 | ECHOD_ITS ---
Reason For Study: TIA/CVA Procedure This was a 2D Doppler, Color Flow transthoracic echocardiogram. Exam performed portable in patient room. Left Ventricle Mildly dilated left ventricle. The estimated ejection fraction is 45-50 %. Right Ventricle Normal right ventricle. Normal systolic function. Atria The left atrium is mildly enlarged. Normal right atrium. Intact atrial septum. Mitral Valve The mitral valve is structurally normal. No prolapse or stenosis seen. Mild (1+) mitral valve insufficiency. Tricuspid Valve Normal tricuspid valve. Trivial eccentric tricuspid valve insufficiency. Aortic Valve Normal aortic valve. No aortic valve insufficiency. Pulmonic Valve The pulmonic valve is not well visualized. Great Vessels Normal aortic root. Pericardium/Pleural No pericardial effusion. Medication Performed a rapid injection of agitated mix of 9 cc saline and 1cc air to assess for atrial septal defect. MMode/2D Measurements & Calculations LVIDd: 5.8 cm IVSd: 1.1 cm Ao root diam: 4.0 cm LVIDs: 4.7 cm LVPWd: 1.0 cm RVDd: 3.8 cm FS: 18.3 % LAV(MOD-bp): 50.5 ml LVAd ap4: 41.6 cm2 LVAd ap2: 43.4 cm2 LAV(MOD-bp) Indexed: 24.3 ml/m2 LVLd ap4: 9.0 cm LVLd ap2: 9.5 cm LAV(MOD-sp2): 46.6 ml EDV(MOD-sp4): 160.3 ml EDV(MOD-sp2): 166.2 ml LAV(MOD-sp4): 48.3 ml EDV(sp4-el): 163.2 ml EDV(sp2-el): 168.4 ml LVAs ap4: 27.8 cm2 LVAs ap2: 33.9 cm2 LVLs ap4: 7.9 cm LVLs ap2: 8.5 cm ESV(MOD-sp4): 82.9 ml ESV(MOD-sp2): 116.9 ml ESV(sp4-el): 83.0 ml ESV(sp2-el): 114.0 ml EF(MOD-sp4): 48.3 % EF(MOD-sp2): 29.7 % EF(sp4-el): 49.2 % SV(MOD-sp4): 77.5 ml SV(MOD-sp2): 49.3 ml SV(sp4-el): 80.2 ml LA A4 area: 16.9 cm2 LA dimension(2D): 4.7 cm RA A4 area: 15.8 cm2 Doppler Measurements & Calculations MV E max roger: 77.4 cm/sec Lat Peak E' Roger: 6.9 cm/sec Med Peak E' Roger: 3.7 cm/sec MV A max roger: 44.2 cm/sec E/E' lat: 11.2 E/E' med: 21.0 MV E/A: 1.7 Ao V2 max: 129.9 cm/sec LV V1 max: 97.7 cm/sec PA V2 max: 112.5 cm/sec Ao max P.8 mmHg LV V1 max P.8 mmHg ECHO/Echo Complete Interpretation Summary The estimated ejection fraction is 45-50 %. Mild MR No significant changes from previous echo Ordering Physician: Sayda Aguilera Referring Physician: Leonarda Smith Performed By: Migdalia Gaona RDCS
[2021-07-31 10:09] VITALS: BP 153/71; PULSE 57; RESP 16; TEMP 36.3; O2SAT 99
[2021-07-31 10:10] VITALS: PULSE 57
[2021-07-31] MEDS: Aspirin E.C. 81 MG Tablet PO (10:14)
[2021-07-31] MEDS: Clopidogrel Bisulfate 75 MG Tablet PO (10:14)
--- NOTE | 2021-07-31 13:15 | PCM.DC ---
Discharge Instructions Diet Discharge Diet: Low fat / Low cholesterol Activity Discharge Activity: Return to Normal Activity Dressing / Incision Call your doctor if you observe: Shortness of breath, Dizziness and Chest pain Follow Up Care Test Results: Test results from this visit will be discussed in further detail at your follow-up appointment, if applicable. Discharge Plan Admission Admit Date/Time: 07/30/21 14:57 Primary Reason for Your Visit: TIA/CVA ruled out, vertigo Attending Provider: Mary Carl Primary Care Provider: Leonarda Smith Discharge Orders/Prescriptions Prescriptions: New pravastatin 20 mg Tablet 20 mg PO QHS 30 Days Qty: 30 RF: 0 meclizine 25 mg tablet 25 mg PO BID PRN (Reason: dizziness) Qty: 14 RF: 0 Continued nitroglycerin [Nitrostat] 0.4 mg tablet, sublingual 0.4 mg SUBLINGUAL Q5M PRN (Reason: Cardiac/Chest Pain) Qty: 25 RF: 3 garlic 1,000 mg capsule 1,000 mg PO DAILY RF: 0 omeprazole 40 mg capsule,delayed release(DR/EC) 40 mg PO DAILY PRN (Reason: GERD) RF: 0 aspirin 81 mg tablet,delayed release (DR/EC) 81 mg PO DAILY RF: 0 coQ10 (ubiquinol) 100 mg Capsule 100 mg PO DAILY RF: 0 (DME) Handicap Parking Placard Qty: 1 RF: 0 clopidogrel [Plavix] 75 mg tablet 75 mg PO DAILY Qty: 90 RF: 3 carvedilol 3.125 mg tablet 3.125 mg PO BID Qty: 180 RF: 3 Referrals / Follow Up: Leonarda Smith DO [Primary Care Provider] - In 1 Week Disposition Disposition (needs filled in before D/C Order can be placed): Home, Self Care
--- NOTE | 2021-07-31 13:21 | DS.PCM_ITS ---
Documented by User: Linda Durham NP, AERIAL SURVEY TECHNICIAN-C 07/31/21 13:29 Providers Date of Admission: 07/30/21 Date of Discharge: 07/31/21 Primary Care Physician: Dr. Leonarda Smith DO Reason For Visit: VERTIGO, UNSTEADINESS ON HIS FEET Diagnosis Discharge Diagnosis (1) Dysequilibrium: Status: Acute Code(s): R42 - Dizziness and giddiness Medications at Discharge Home Medications garlic 1,000 mg capsule 1,000 mg PO DAILY cap 03/06/19 nitroglycerin 0.4 mg sublingual tablet 0.4 mg SUBLINGUAL Q5M PRN #25 tab 04/17/19 Handicap Parking Placard #1 ea 11/12/19 omeprazole 40 mg capsule,delayed release 40 mg PO DAILY PRN cap 11/12/20 clopidogrel 75 mg tablet 75 mg PO DAILY #90 tab 05/18/21 carvedilol 3.125 mg tablet 3.125 mg PO BID #180 tab 05/19/21 aspirin 81 mg PO DAILY 07/30/21 coQ10 (ubiquinol) 100 mg PO DAILY 07/30/21 meclizine 25 mg PO BID PRN #14 tab 07/31/21 pravastatin 20 mg PO QHS 30 Days #30 tab 07/31/21 Hospital Course Operations None Procedures 2-D Echocardiogram Summary of Care Provided Hospital Course: Patient is a 75-year-old male admitted 07/30/2021 due to dizziness, gait imbalance. 1. Suspected BPPV, TIA/CVA ruled out-MRI of brain with old left parietal lobe infarct. No acute infarct. Head and neck CTA with mild 20% right carotid stenosis and mild 40% left carotid stenosis. PT/OT with no concerns for balance or need for further therapy. Patient does report symptoms are positional. As needed meclizine at discharge for dizziness/vertigo. Continue aspirin, statin for prior CVA history. Follow-up with PCP in 1 week. Echocardiogram completed, report pending and will be reviewed. 2. Mild carotid stenosis-per CTA of head and neck. Continue aspirin, statin. Outpatient follow-up. 3. CAD with history of CABG and PCI/MARY-continue medical management, follow-up with cardiology. 4. Hypertension-stable, continue home regimen. 5. History of ASD repair-patient reports complicated by CVA. No residual symptoms. Patient seen and examined prior to discharge. Physical assessment as noted below. Patient is stable for discharge with follow up recommendations as noted above. This patient was seen by GEOVANNA Sol under the supervision of Dr. Carl. Physical Exam Const alert, oriented x3 and no apparent distress Orientation / Consciousness: awake, oriented to person, oriented to place and oriented to time HEENT normocephalic and moist oral mucous membranes Eyes PERRL, EOMs intact bilaterally and conjunctivae normal Neck no lymphadenopathy Resp normal respiratory effort and clear to auscultation bilaterally Cardio regular rate, regular rhythm and no murmurs Peripheral Pulses: pulses 2+ throughout GI normal to inspection, nondistended, normoactive bowel sounds, non-tender and non-distended Extremity normal to inspection Skin no rashes or lesions noted Lesions: no lesions Rashes: no rashes Trauma: no lacerations or abrasions Neuro CN's II-XII intact bilaterally, no focal motor deficits, no sensory deficits noted and deep tendon reflexes 2+ bilaterally Psych mental status grossly normal and affect normal Weight / BMI Weight Weight: 208 lb 8 oz Body Mass Index (BMI) 31.6 ABG / Lab / Microbiology Data Result Diagrams: 07/31/21 05:17 07/31/21 05:17 Laboratory: Laboratory Results - last 24 hr 07/30/21 13:30: WBC 7.7, RBC 4.40 L, Hgb 14.9, Hct 44.7, MCV 101.6 H, MCH 33.9 H , MCHC 33.3, RDW Std Deviation 44.4 H, RDW Coeff of Neena 11.9, Plt Count 239, MPV 10.0, Immature Gran % (Auto) 0.700, Neut % (Auto) 66.6, Lymph % (Auto) 14.9 L, Kitt[place] % (Auto) 14.1 H, Eos % (Auto) 3.4, Baso % (Auto) 0.3, Absolute Neuts (auto) 5.1, Absolute Lymphs (auto) 1.14, Nucleated RBC % 0 07/30/21 13:30: Sodium 138, Potassium 4.3, Chloride 105, Carbon Dioxide 28.0, Anion Gap 5, BUN 16, Creatinine 1.09, Estim Creat Clear Calc 55.78, Est GFR (MDRD) Af Amer 84, Est GFR (MDRD) Non-Af 70, BUN/Creatinine Ratio 14.7, Glucose 102, Calcium 8.9, Troponin I High Sens 16 07/30/21 17:00: Troponin I High Sens 16 07/31/21 05:17: WBC 5.9, RBC 3.89 L, Hgb 13.3, Hct 39.9 L, MCV 102.6 H, MCH 34.2 H, MCHC 33.3, RDW Std Deviation 45.1 H, RDW Coeff of Neena 11.9, Plt Count 202, MPV 10.3, Immature Gran % (Auto) 0.300, Neut % (Auto) 65.5, Lymph % (Auto) 16.5 L, Kittson % (Auto) 13.5 H, Eos % (Auto) 3.9, Baso % (Auto) 0.3, Absolute Neuts (auto) 3.8, Absolute Lymphs (auto) 0.97, Nucleated RBC % 0 07/31/21 05:17: Sodium 139, Potassium 4.1, Chloride 108 H, Carbon Dioxide 27.0, Anion Gap 4 L, BUN 18, Creatinine 1.02, Estim Creat Clear Calc 59.61, Est GFR (MDRD) Af Amer 91, Est GFR (MDRD) Non-Af 75, BUN/Creatinine Ratio 17.6, Glucose 99, Calcium 8.1 L, Triglycerides 73, Cholesterol 166, LDL Cholesterol 113, VLDL Cholesterol 15, HDL Cholesterol 38 L Radiography Diagnostic Testing: Radiology Impression Brain CT 07/30/21 13:22 IMPRESSION: Chronic involutional changes of the brain. Stable encephalomalacia in the posterior aspect of the left parietal occipital lobe. N.B. : The above Results were Read Back by Roddy Brooks MD to Abdias Cohen and understanding confirmed on 07/30/2021 13:56:50 (ET). Electronically Signed: Roddy Brooks MD at 13:58 EST , ADDENDUM: 07/30/21 0034 IMPRESSION: Chronic involutional changes of the brain. Stable encephalomalacia in the posterior aspect of the left parietal occipital lobe. N.B. : The above Results were Read Back by Roddy Brooks MD to Abdias Churchillone and understanding confirmed on 07/30/2021 13:56:50 (ET). Electronically Signed: Roddy Brooks MD at 13:58 EST , Chest X-Ray 07/30/21 13:48 IMPRESSION: Status post CABG. Borderline cardiomegaly. Electronically Signed: Roddy Brooks MD at 13:59 EST , Brain MRI 07/30/21 16:20 IMPRESSION: Mild atrophy and periventricular white matter ischemic change without evidence for acute infarct. Old left parietal lobe infarct.. Electronically Signed: Sascha Pena MD at 21:01 EST , Head/Neck CTA 07/31/21 07:48 IMPRESSION: 1. Normal CTA Head with contrast. 2. Mild (20%) right carotid stenosis. 3. Mild (40%) left carotid stenosis. 4. Patent vertebral arteries bilaterally. N.B. : The above Results were Read Back by Aiden Bishop MD to ANASTASIA CARL MD, and understanding confirmed on 07/31/2021 08:39:11 (ET). Electronically Signed: Aiden Bishop MD at 8:40 EST , ADDENDUM: 07/31/21 0847 IMPRESSION: 1. Normal CTA Head with contrast. 2. Mild (20%) right carotid stenosis. 3. Mild (40%) left carotid stenosis. 4. Patent vertebral arteries bilaterally. N.B. : The above Results were Read Back by Aiden Bishop MD to ANASTASIA CARL MD, and understanding confirmed on 07/31/2021 08:39:11 (ET). Electronically Signed: Aiden Bishop MD at 8:40 EST Reading Location ID and State: [facility] / [place] Tel , Service support , D/C Instructions Discharge Diet: Low fat / Low cholesterol Call your doctor if you observe: Shortness of breath, Dizziness and Chest pain Meaningful Use Info Meaningful Use Diagnoses (Choose all that apply): None applicable Discharge Plan Admission Admit Date/Time: 07/30/21 14:57 Primary Reason for Your Visit: TIA/CVA ruled out, vertigo Attending Provider: Anastasia Carl Primary Care Provider: Leonarda Smith Discharge Orders/Prescriptions Prescriptions: New pravastatin 20 mg Tablet 20 mg PO QHS 30 Days Qty: 30 RF: 0 meclizine 25 mg tablet 25 mg PO BID PRN (Reason: dizziness) Qty: 14 RF: 0 Continued nitroglycerin [Nitrostat] 0.4 mg tablet, sublingual 0.4 mg SUBLINGUAL Q5M PRN (Reason: Cardiac/Chest Pain) Qty: 25 RF: 3 garlic 1,000 mg capsule 1,000 mg PO DAILY RF: 0 omeprazole 40 mg capsule,delayed release(DR/EC) 40 mg PO DAILY PRN (Reason: GERD) RF: 0 aspirin 81 mg tablet,delayed release (DR/EC) 81 mg PO DAILY RF: 0 coQ10 (ubiquinol) 100 mg Capsule 100 mg PO DAILY RF: 0 (DME) Handicap Parking Placard Qty: 1 RF: 0 clopidogrel [Plavix] 75 mg tablet 75 mg PO DAILY Qty: 90 RF: 3 carvedilol 3.125 mg tablet 3.125 mg PO BID Qty: 180 RF: 3 Referrals / Follow Up: Leonarda Smith DO [Primary Care Provider] - In 1 Week Disposition Disposition (needs filled in before D/C Order can be placed): Home, Self Care Documented by User: Dr. Anastasia Carl DO 07/31/21 14:23 Providers Date of Admission: 07/30/21 Reason For Visit: VERTIGO, UNSTEADINESS ON HIS FEET Medications at Discharge Home Medications garlic 1,000 mg capsule 1,000 mg PO DAILY cap 03/06/19 nitroglycerin 0.4 mg sublingual tablet 0.4 mg SUBLINGUAL Q5M PRN #25 tab 04/17/19 Handicap Parking Placard #1 ea 11/12/19 omeprazole 40 mg capsule,delayed release 40 mg PO DAILY PRN cap 11/12/20 clopidogrel 75 mg tablet 75 mg PO DAILY #90 tab 05/18/21 carvedilol 3.125 mg tablet 3.125 mg PO BID #180 tab 05/19/21 aspirin 81 mg PO DAILY 07/30/21 coQ10 (ubiquinol) 100 mg PO DAILY 07/30/21 meclizine 25 mg PO BID PRN #14 tab 07/31/21 pravastatin 20 mg PO QHS 30 Days #30 tab 07/31/21 Hospital Course Operations None Procedures 2-D Echocardiogram and - (MRI brain) Summary of Care Provided Minutes Spent on Discharge: 37 Hospital Course: This patient was seen in conjunction with Linda Durham NP. The following represents my independent history and physical examination. Please see below for addendum the above. Mr. Shepherd is a 75-year-old white male who presented to the emergency department at [facility] on 07/30/2021 with a chief complaint of unsteadiness and disequilibrium without any dali dizziness. The patient indicates that this is been going on for approximately 1 month and is gradually worsened. He stated that intermittently he will feel unsteady on his feet. He states that the unsteadiness and spinning is worse and on turning his head from side to side and when he awakes in the mornings. He denied any blurred vision, slurring of his speech, weakness, tingling, or numbness in any of extremities upon presentation. He does have a remote history of a stroke due to an ASD and follows closely with cardiology as an outpatient. His vital signs were stable emergency department. His CBC was unremarkable. His BMP was unremarkable. His chest x-ray showed borderline cardiomegaly and evidence of previous CABG. A CT of the head was performed and showed chronic involutional changes and stable encephalomalacia in the posterior aspect of the left parietal occipital lobe. He was admitted to the medical floor for TIA/stroke rule out. An MRI was performed and showed mild atrophy with periventricular white matter ischemic c hanges and no evidence of acute infarct. There was also evidence of an old left parietal lobe infarct. The patient had noted history of bilateral carotid disease and a CTA of his head neck was performed. This revealed normal vertebral arteries bilaterally with mild bilateral carotid artery stenosis with 20% blockage on the right and 40% blockage on the left. There were no intracranial abnormalities noted. An echocardiogram was also performed and showed an EF of 45 to 50% with mild mitral regurgitation and this was unchanged from his previous echo on 07/08/2019. We suspect that he probably has some disequilibrium and vertigo related to inner ear issues. He was evaluated by physical therapy and they deemed him up for discharge and no needs of any further outpatient physical therapy however we did want him evaluated for vestibular physical therapy and this prescription was given upon discharge. He was discharged home in stable condition with only the addition of pravastatin. He has had a distolerance to atorvastatin in the past secondary to myalgias. We did discuss with him that this too could cause myalgias however he was willing to try this and will discontinue if myalgias occur. His cholesterol was as follows-cholesterol 166/LDL 113/HDL 38/triglycerides 73. He is to follow-up with his primary care physician in 2 weeks and cardiology as scheduled. Discharge diagnoses. Disequilibrium/vertigo-suspected BPPV Bilateral carotid artery stenosis-mild CAD status post CABG/stent placement History of stroke secondary to ASD-ASD status post repair Hyperlipidemia GERD Hypertension Physical Exam Const alert, oriented x3, no apparent distress, healthy appearing and well nourished Constitutional Narrative: Obese older white male who is standing up next to his chair upon me arriving to the room and sat down independently without any difficulty, appears comfortable nontoxic, very pleasant General Appearance: cooperative, comfortable, well kempt and well developed Orientation / Consciousness: awake Nutritional Appearance: obese HEENT normocephalic, head/scalp atraumatic, hearing grossly normal bilaterally and moist oral mucous membranes HEENT Narrative: Mallampati is 2, no thrush Eyes PERRL, EOMs intact bilaterally and conjunctivae normal Eyes Narrative: No scleral icterus Neck no lymphadenopathy, supple, no JVD and no carotid bruits Neck Narrative: Trachea midline, no thyroid enlargement Resp normal respiratory effort, no retractions, no use of accessory muscles and clear to auscultation bilaterally Auscultation: Negative for crackles, rales, rhonchi or wheezes Cardio regular rate, regular rhythm, S1 normal heart sound, S2 normal heart sound, no murmurs, no rub, no gallops, no clicks and no JVD GI normal to inspection, nondistended, normoactive bowel sounds, soft to palpation, non-tender and non-distended; Negative for hepatosplenomegaly Extremity no clubbing, cyanosis or edema Skin no rashes or lesions noted, no wounds, skin turgor normal and no jaundice Skin Narrative: Midline lumbar incision well-healed Neuro oriented x3, CN's II-XII intact bilaterally, moves all extremities, no focal motor deficits and no sensory deficits noted Neuro Narrative: Gait is not patient was able to ambulate to the bathroom upon my observation without any difficulty Sensorium / Orientation: awake and alert Speech: speech normal Motor Exam: strength 5/5 throughout Psych affect normal Psych Narrative: Extremely pleasant ABG / Lab / Microbiology Data Result Diagrams: 07/31/21 05:17 07/31/21 05:17 Discharge Plan Admission Admit Date/Time: 07/30/21 14:57 Primary Reason for Your Visit: TIA/CVA ruled out, vertigo Attending Provider: Anastasia Carl Primary Care Provider: Leonarda Smith Discharge Orders/Prescriptions Prescriptions: New pravastatin 20 mg Tablet 20 mg PO QHS 30 Days Qty: 30 RF: 0 meclizine 25 mg tablet 25 mg PO BID PRN (Reason: dizziness) Qty: 14 RF: 0 Continued nitroglycerin [Nitrostat] 0.4 mg tablet, sublingual 0.4 mg SUBLINGUAL Q5M PRN (Reason: Cardiac/Chest Pain) Qty: 25 RF: 3 garlic 1,000 mg capsule 1,000 mg PO DAILY RF: 0 omeprazole 40 mg capsule,delayed release(DR/EC) 40 mg PO DAILY PRN (Reason: GERD) RF: 0 aspirin 81 mg tablet,delayed release (DR/EC) 81 mg PO DAILY RF: 0 coQ10 (ubiquinol) 100 mg Capsule 100 mg PO DAILY RF: 0 (DME) Handicap Parking Placard Qty: 1 RF: 0 clopidogrel [Plavix] 75 mg tablet 75 mg PO DAILY Qty: 90 RF: 3 carvedilol 3.125 mg tablet 3.125 mg PO BID Qty: 180 RF: 3 Referrals / Follow Up: Leonarda Smith DO [Primary Care Provider] - In 1 Week Disposition Disposition (needs filled in before D/C Order can be placed): Home, Self Care Charges/Coding Visit Charges Inpatient E&M: 58437 Disch Hosp
--- NOTE | 2021-07-31 14:17 | CASEMGMT ---
Per Dr. Carl, she would like pt set up with vestibular therapy at discharge. Order obtained and provided to pt at this time, voices understanding. Pee SUTTON CM
== END 2021-07-31 13:16 | disposition home or self-care (01) ==
LOC: ED 14:34 → PCU 07-31 06:50
PROVIDERS: Admitting Provider Student in an Organized Health Care Education/Training Program; Emergency Provider Emergency Medicine; PCP Family Medicine; Visit Provider Internal Medicine
DX: R42 Dizziness and giddiness (principal); I63.233 Cerebral infarction due to unspecified occlusion or stenosis of bilateral carotid arteries; E78.5 Hyperlipidemia, unspecified; I10 Essential (primary) hypertension; I25.10 Atherosclerotic heart disease of native coronary artery without angina pectoris; R26.89 Other abnormalities of gait and mobility; M79.10 Myalgia, unspecified site; K21.9 Gastro-esophageal reflux disease without esophagitis; R00.1 Bradycardia, unspecified; R94.31 Abnormal electrocardiogram [ECG] [EKG]; Z79.899 Other long term (current) drug therapy; Z79.02 Long term (current) use of antithrombotics/antiplatelets; Z79.82 Long term (current) use of aspirin; R29.700 NIHSS score 0; Z95.1 Presence of aortocoronary bypass graft
CPT/HCPCS: 36415; 70450; 70496; 70498; 70551; 71045; 80048; 80061; 84484; 85025; 93005; 93306; 96360; 96361; 97162; 97165; 99218; 99285; J7030; Q9967; A4216; G0378

== ENCOUNTER → 2022-05-24 | Outpatient (CLI) | payer OTHER, MEDICARE, SELFPAY ==
[2019-07-15 08:43] VITALS: BMI 32.5
[2022-05-24 09:55] LABS: AST(SGOT) 29 U/L (15-37); Alanine Aminotransfer ALT/SGPT 37 U/L (16-61); Albumin, Serum 3.6 g/dL (3.2-5.0); Alkaline Phosphatase 86 U/L (45-117); Bilirubin, Direct 0.22 mg/dL (0.00-0.30); Cholesterol 193 mg/dL (200); Globulin 3.8 g/dL (2.2-4.2); High Density Lipoprotein 55 mg/dL; Protein, Total 7.4 g/dL (6.4-8.2); Triglycerides 64 mg/dL; Very Low Density Lipoprotein 13 mg/dL (5-40)
== END | disposition home or self-care (01) ==
LOC: LAB 08:13
PROVIDERS: PCP Family Medicine; Referring Provider Internal Medicine Cardiovascular Disease; Visit Provider Internal Medicine Cardiovascular Disease
DX: I25.810 Atherosclerosis of coronary artery bypass graft(s) without angina pectoris (principal); E78.5 Hyperlipidemia, unspecified
CPT/HCPCS: 36415; 80061; 80076

== ENCOUNTER → 2022-06-23 | Outpatient (CLI) | payer OTHER, MEDICARE, SELFPAY ==
[2019-07-15 08:43] VITALS: BMI 32.5
[2022-06-23 11:33] LABS: AST(SGOT) 27 U/L (15-37); Alanine Aminotransfer ALT/SGPT 29 U/L (16-61); Albumin, Serum 3.6 g/dL (3.2-5.0); Alkaline Phosphatase 73 U/L (45-117); Anion Gap 5 (5-15); BUN 26 mg/dL (7-18); BUN/Creat Ratio 21.3 RATIO (10-20); Bilirubin, Direct 0.12 mg/dL (0.00-0.30); Calcium,Total 9.4 mg/dL (8.5-10.1); Chloride 105 mmol/L (98-107); Cholesterol 179 mg/dL (200); Creatinine, Serum 1.22 mg/dL (0.70-1.30); EST Glomerular Filtration Rate 61 mL/min (>60); Est Glom Filt Rate - Afr Amer 74 mL/min (>60); Globulin 3.6 g/dL (2.2-4.2); Glucose 95 mg/dL (74-106); High Density Lipoprotein 49 mg/dL; Potassium 4.9 mmol/L (3.5-5.1); Protein, Total 7.2 g/dL (6.4-8.2); Sodium Level 140 mmol/L (136-145); Triglycerides 72 mg/dL; Very Low Density Lipoprotein 14 mg/dL (5-40)
== END | disposition home or self-care (01) ==
LOC: LAB 10:23
PROVIDERS: PCP Family Medicine; Referring Provider Internal Medicine Cardiovascular Disease; Visit Provider Internal Medicine Cardiovascular Disease
DX: I25.810 Atherosclerosis of coronary artery bypass graft(s) without angina pectoris (principal); Q21.10 Atrial septal defect, unspecified; E78.5 Hyperlipidemia, unspecified; Z95.5 Presence of coronary angioplasty implant and graft; Z95.1 Presence of aortocoronary bypass graft
CPT/HCPCS: 36415; 80048; 80061; 80076

== ENCOUNTER → 2022-08-26 | Outpatient (CLI) | payer OTHER, MEDICARE, SELFPAY ==
[2019-07-15 08:43] VITALS: BMI 32.5
== END | disposition home or self-care (01) ==
LOC: PSN 08:20
PROVIDERS: PCP Family Medicine; Referring Provider Internal Medicine Cardiovascular Disease; Visit Provider Internal Medicine Cardiovascular Disease
DX: I47.1 Supraventricular tachycardia (principal)
CPT/HCPCS: 93225; 93226

== ENCOUNTER → 2022-09-20 | Outpatient (CLI) | payer OTHER, MEDICARE, SELFPAY ==
[2019-07-15 08:43] VITALS: BMI 32.5
--- NOTE | 2022-09-21 10:14 | PFT ---
INTRODUCTION: The patient is a 77-year-old male who presents for pulmonary function studies secondary to a diagnosis of dyspnea. Respiratory therapy reported good patient effort. Bronchodilators were used during testing. INTERPRETATION: Forced expiration spirometry demonstrates no evidence of a large airways obstructive ventilatory defect. There was no significant response to aerosolized bronchodilators. Spirograms are of fair quality and plateau gradually indicating slow emptying of the lungs. Body plethysmography was performed and revealed lung volumes to be within normal limits. Diffusing capacity by single breath CO is also within normal limits. IMPRESSION: Grossly normal pulmonary function studies.
== END | disposition home or self-care (01) ==
LOC: PSN 08:53
PROVIDERS: PCP Family Medicine; Referring Provider Internal Medicine Critical Care Medicine; Visit Provider Internal Medicine Critical Care Medicine
DX: R06.09 Other forms of dyspnea (principal)
CPT/HCPCS: 94060; 94726; 94729

== ENCOUNTER → 2022-09-22 | Outpatient (CLI) | payer OTHER, MEDICARE, SELFPAY ==
[2019-07-15 08:43] VITALS: BMI 32.5
[2022-09-22 07:19] VITALS: PULSE 101; PULSE 118; PULSE 120; PULSE 122; PULSE 127; PULSE 128; PULSE 86; PULSE 93; O2SAT 94; O2SAT 95; O2SAT 96; O2SAT 97
--- NOTE | 2022-09-22 07:24 | CPS ---
PATIENT STATES HE RECENTLY WORE A HOLTER MONITOR TO EVALUATE HIS HR AND HAS FOLLOW UP SCHEDULED. HIS HR DID ELEVATE DURING HIS WALK TEST, AT WHICH TIME HE TOOK A BRIEF REST FOR INCREASED WOB. THIS RT ASSESSED PULSE, REGULAR RHYTHM AT THAT TIME VIA PALPATION. HR REMAINED ELEVATED FOR TESTING, WITH PATIENT HAVING MILD INCREASED WOB WELL LEG FATIGUE. HE TOOK 3 SHORT REST PERIODS DURING TESTING AND AMBULATED 613FT.
--- NOTE | 2022-09-23 07:58 | WT_ITS ---
PSN 6 Minute Walk Test 6 Minute Walk Test 6 Minute Walk Test: 6 Minute Walk Test PSN:6-Minute Walk Test Start: 09/22/22 07:19 Freq: Status: Active Protocol: [id number].6MINW Document 09/22/22 07:19 [facility] (Rec: 09/22/22 07:30 [facility] [id number]) 6 Minute Walk Test Date Performed 09/22/22 Time Performed 07:00 Height 5 ft 8 in Weight: 212 lb Weight in Pounds [address]: Abraham Hunter Assistive device used: None Pre-test Oxygen Delivery Method Room Air Pulse Ox (%) 96 Pulse Rate (60-100 beats/min) 86 Dyspnea Gary Scale (0-10) 0 1st minute Oxygen Delivery Method Room Air Pulse Ox (%) 95 Pulse Rate (60-100 beats/min) 101 H Dyspnea Gary Scale (0-10) 1 Number of Rests Taken 0 2nd minute Oxygen Delivery Method Room Air Pulse Ox (%) 94 Pulse Rate (60-100 beats/min) 127 H Dyspnea Gary Scale (0-10) 2 Number of Rests Taken 1 Reported Symptoms Increased Work of Breathing 3rd minute Oxygen Delivery Method Room Air Pulse Ox (%) 96 Pulse Rate (60-100 beats/min) 120 H Dyspnea Gary Scale (0-10) 2 Number of Rests Taken 1 Reported Symptoms Increased Work of Breathing 4th minute Oxygen Delivery Method Room Air Pulse Ox (%) 96 Pulse Rate (60-100 beats/min) 118 H Dyspnea Gary Scale (0-10) 2 Number of Rests Taken 0 Reported Symptoms Increased Work of Breathing 5th minute Oxygen Delivery Method Room Air Pulse Ox (%) 94 Pulse Rate (60-100 beats/min) 122 H Dyspnea Gary Scale (0-10) 3 Number of Rests Taken 1 Reported Symptoms Increased Work of Breathing 6th minute Oxygen Delivery Method Room Air Pulse Ox (%) 95 Pulse Rate (60-100 beats/min) 128 H Dyspnea Gary Scale (0-10) 3 Number of Rests Taken 0 Reported Symptoms Increased Work of Breathing Post-test Oxygen Delivery Method Room Air Pulse Ox (%) 97 Pulse Rate (60-100 beats/min) 93 Dyspnea Agry Scale (0-10) 0 Full Laps Walked 10 Partial Lap, Number of Tiles Walked 23 Total Distance Walked (ft) 613 09/22/22 07:24 Cardiopulmonary Services by Jennifer Soler PATIENT STATES HE RECENTLY WORE A HOLTER MONITOR TO EVALUATE HIS HR AND HAS FOLLOW UP SCHEDULED. HIS HR DID ELEVATE DURING HIS WALK TEST, AT WHICH TIME HE TOOK A BRIEF REST FOR INCREASED WOB. THIS RT ASSESSED PULSE, REGULAR RHYTHM AT THAT TIME VIA PALPATION. HR REMAINED ELEVATED FOR TESTING, WITH PATIENT HAVING MILD INCREASED WOB WELL LEG FATIGUE. HE TOOK 3 SHORT REST PERIODS DURING TESTING AND AMBULATED 613FT. Initialized on 09/22/22 07:24 - END OF NOTE Interpretation Interpretation: The patient ambulated 613 feet over the course of 6 minutes beginning on room air without assistive devices. Pretesting oxygen saturation was noted to be 96% on room air. With ambulation, the wilner oxygen saturation was 94%. Although there was evidence of impaired walk distance, there was no significant exertional oxygen desaturation. Recommendations Recommendations: There is no indication for the use of supplemental oxygen at this time.
== END | disposition home or self-care (01) ==
LOC: PSN 06:44
PROVIDERS: PCP Family Medicine; Referring Provider Internal Medicine Critical Care Medicine; Visit Provider Internal Medicine Critical Care Medicine
DX: R06.09 Other forms of dyspnea (principal)
CPT/HCPCS: 94618

== ENCOUNTER 2022-10-09 19:50 | Emergency (ER) | payer OTHER, MEDICARE, SELFPAY ==
[2019-07-15 08:43] VITALS: BMI 32.5
[2022-10-09 19:50] VITALS: BP 162/86; PULSE 64; RESP 16; TEMP 36.6; O2SAT 98
--- NOTE | 2022-10-09 20:01 | EKG12_ITS ---
Test Reason : DYSRHYTHMIA Blood Pressure : / mmHG Vent. Rate : 075 BPM Atrial Rate : 075 BPM P-R Int : 196 ms QRS Dur : 152 ms QT Int : 422 ms P-R-T Axes : 041 -24 038 degrees QTc Int : 471 ms Sinus rhythm with marked sinus arrhythmia with occasional Premature ventricular complexes Right bundle branch block Abnormal ECG Confirmed by DEENA OKEEFE, ROSEMARY ([id number]), newspaper editor managing SH[employer] CHEW ([id number]) on 10/10/2022 10:21:05 AM Referred By: LINA Confirmed By:ROSEMARY SHAFFER MD
[2022-10-09 20:08] VITALS: PULSE 70; RESP 16; O2SAT 97
--- NOTE | 2022-10-09 20:10 | RAD_ITS ---
STUDY: X-RAY CHEST REASON FOR EXAM: Male, 77 years old. Sudden onset episode of dizziness, nausea and diaphoresis lasting 15 minutes. Chest pain. TECHNIQUE: Single AP portable view of the chest. COMPARISON: July 30, 2021. FINDINGS: The lungs are clear and expanded. There is no demonstrated pleural abnormality. Borderline cardiomegaly with evidence of median sternotomy. Normal mediastinum and saulo. Normal visualized pulmonary arteries. Normal visualized aortic arch and descending thoracic aorta. Normal visualized thoracic spine. Normal visualized ribs, clavicles, and shoulders. There is no demonstrated abnormality of the visualized soft tissue structures of the upper abdomen. RAD/Chest 1 View (Portable) IMPRESSION: No acute cardiopulmonary disease or interval change. Electronically Signed: Glen Costello DO at 20:26 EDT ,
[2022-10-09 20:13] LABS: Absolute Lymphocyte Count 1.26 X10^3/uL (0.83-4.51); Absolute Neutrophil Count 4.7 X10^3/uL (2.0-7.7); Basophil# 0.02 X10^3/uL; Basophil% 0.3 % (0-1); Eosinophil# 0.18 X10^3/uL; Eosinophils% 2.6 % (0-5); Hematocrit 40.2 % (40-54); Hemoglobin 13.3 g/dL (13.0-16.5); Lymphocyte # 1.26 X10^3/ul (0.83-4.51); Lymphocyte % 17.9 % (19-41); Mean Corp Hgb Conc 33.1 g/dL (32-36); Mean Corpuscular Hgb 34.5 pg (27.0-32.0); Mean Corpuscular Volume 104.4 fL (80-94); Mean Platelet Vol. 9.9 fl (6.2-12.0); Monocyte# 0.89 X10^3/uL; Monocyte% 12.6 % (0-10); NRBC Flagged by Analyzer 0 % (0-5); Neutrophil # 4.66 X10^3/uL (2.7-7.7); Platelet Count 219 K/mm3 (150-450); RBC Distribution Width CV 11.6 % (11.6-14.6); RBC Distribution Width SD 44.6 fl (35.1-43.9); Red Blood Count 3.85 M/mm3 (4.6-6.2); White Blood Count 7.1 K/mm3 (4.4-11.0)
[2022-10-09 20:37] LABS: Anion Gap 6 (5-15); BUN 24 mg/dL (7-18); BUN/Creat Ratio 18.5 RATIO (10-20); Calcium,Total 8.9 mg/dL (8.5-10.1); Chloride 106 mmol/L (98-107); EST Glomerular Filtration Rate 57 mL/min (>60); Est Glom Filt Rate - Afr Amer 69 mL/min (>60); Glucose 130 mg/dL (74-106); Potassium 4.2 mmol/L (3.5-5.1); Sodium Level 139 mmol/L (136-145); Troponin-I HS (w/2H Reflex) 23 pg/mL (3.0-78.0)
--- NOTE | 2022-10-09 21:08 | EDS_ITS ---
HPI History of Present Illness Chief Complaint: Dizziness Narrative Narrative: 69-year-old male presenting after an episode of vertiginous dizziness. He states he has a history of vertigo but has not had a long time. He states he became sweaty and nauseous. Patient states that he has a history of CAD, SVT, CABG so he wanted to be checked out to make sure it was just vertigo. He denies any chest pain or shortness of breath. No fever or chills. No cough. At the time of interview with the patient he states he feels much better as long as he keeps his head still. [facility] Medical History Atherosclerosis of coronary artery bypass graft of [place] heart without angina pectoris Atrial septal defect Bilateral carotid artery disease Cerebrovascular accident Dyspnea on exertion Essential (primary) hypertension History of left heart catheterization (LHC) (~11/26/19) Hyperlipidemia Premature ventricular complex SVT (supraventricular tachycardia) Home Medications Handicap Parking Placard #1 ea 11/12/19 [Rx Last Taken Unknown] cholecalciferol (vitamin D3) 25 mcg (1,000 unit) capsule 25 mcg PO DAILY 06/10/22 [History Last Taken Unknown] coQ10 (ubiquinol) 100 mg capsule 200 mg PO DAILY SUPPLEMENT 06/10/22 [History Last Taken Unknown] cyanocobalamin (vitamin B-12) 2,500 mcg tablet 5,000 mcg PO DAILY 06/10/22 [History Last Taken Unknown] garlic 400 mg tablet 1,200 mg PO DAILY 06/10/22 [History Last Taken Unknown] nitroglycerin 0.4 mg sublingual tablet (Nitrostat) 0.4 mg sublingual Q5M PRN Cardiac/Chest Pain #25 tabs 06/10/22 [Rx Last Taken Unknown] omeprazole 20 mg tablet,delayed release 20 mg PO DAILY PRN 06/10/22 [History Last Taken Unknown] lisinopril 10 mg tablet 10 mg PO DAILY #90 tabs 08/18/22 [Rx Last Taken Unknown] apixaban 5 mg tablet (Eliquis) 5 mg PO BID #60 tabs 09/23/22 [Rx Last Taken Unknown] meclizine 25 mg tablet 25 mg PO TID PRN dizziness #20 tabs 10/09/22 [Rx Last Taken Unknown] Allergy/AdvReac Type Severity Reaction Status Date / Time Penicillins [PCN] Allergy Mild Rash Verified 10/09/22 19:52 atorvastatin AdvReac Severe Myalgias Verified 10/09/22 19:52 oxycodone AdvReac Severe Hallucinati Verified 10/09/22 19:52 ons clopidogrel [From Plavix] AdvReac Intermediate Burning Verified 10/09/22 19:52 sensation in arms and chest Surgical History Aortocoronary bypass status (~07/31/03) History of back surgery History of coronary artery stent placement (03/30/19) Social History Smoking Status: Unknown if ever smoked ROS ROS ED Constitutional Constitutional ED: Denies chills or fever(s) Eyes Eyes: Denies change in vision or diplopia ENT ENT ED: Denies rhinorrhea or sore throat Cardiovascular Cardiovascular: Denies chest pain or palpitations Respiratory/Chest Respiratory/Chest: Denies cough or dyspnea Gastrointestinal Gastrointestinal: Reports nausea; Denies abdominal pain Genitourinary Genitourinary ED: Denies dysuria or hematuria Musculoskeletal Musculoskeletal: Denies arthralgias or back pain Integumentary Denies abscess or Abrasions Neurologic Neurologic: Denies headache(s) or paresthesias EXAM Physical Exam Const Vital Signs: 10/09/22 19:50 10/09/22 20:08 10/09/22 21:20 Temperature 98 F Temperature Source Temporal Pulse Rate 64 70 Pulse Rate [Lying] 64 Pulse Rate [Sitting (for 1 minute prior to obtaining)] 71 Pulse Rate [Standing (for 1 minute prior to obtaining)] 80 Respiratory Rate 16 16 Blood Pressure 162/86 H Blood Pressure [Lying] 135/72 H Blood Pressure [Sitting (for 1 minute prior to obtaining)] 147/99 H Blood Pressure [Standing (for 1 minute prior to obtaining)] 159/84 H Blood Pressure Mean 111 Blood Pressure Mean [Lying] 93 Blood Pressure Mean [Sitting (for 1 minute prior to obtaining)] 115 Blood Pressure Mean [Standing (for 1 minute prior to obtaining)] 109 Pulse Ox 98 97 Oxygen Delivery Method Room Air Room Air Positive well nourished General Appearance ED: NAD; Negative for pallor HEENT Reports moist mucous membranes HEENT Narrative: Positive Geronimo-Hallpike Eyes PERRL and EOMs intact bilaterally Neck no lymphadenopathy Resp normal respiratory effort and clear to auscultation bilaterally Auscultation: Negative for rales, rhonchi or wheezes Cardio regular rate and regular rhythm Back/Spine no CVA tenderness Neuro oriented x3 and CN's II-XII intact bilaterally Sensorium / Orientation: alert Psych mental status grossly normal Skin no rashes or lesions noted and no wounds General Skin Exam: Negative for jaundice or pallor MDM MDM MDM Narrative Medical decision making narrative: Patient presenting with dizziness. Differential includes was also obtained. Vertigo, dysrhythmia, anemia, electrolyte abnormalities, dehydration, ACS. On examination he does have a positive Geronimo-Hallpike. He wants to make sure he was not having something cardiac in nature. CBC was obtained to assess white blood cell count, hemoglobin, platelets, differential. BMP to assess renal function, electrolytes, glucose, anion gap. High-sensitivity troponin and EKG were obtained as well. Chest x-ray shows no acute cardiopulmonary process on my interpretation and radiologist services and agrees. EKG is sinus rhythm at the rate of 75 bpm with right bundle branch block and slight sinus arrhythmia. Patient was given meclizine. Will reevaluate. So far his lab work is normal. High-sensitivity troponin 23. Orthostatic vital signs are normal. Patient feeling improved on reevaluation. At this point feel patient stable for [facility]. Impression: 1. Benign positional vertigo 2. Nausea Lab Data Attestation: I reviewed the patient's lab results. Labs: Laboratory Results - last 24 hr 10/09/22 10/09/22 20:05 20:05 WBC 7.1 RBC 3.85 L Hgb 13.3 Hct 40.2 MCV 104.4 H MCH 34.5 H MCHC 33.1 RDW Std Deviation 44.6 H RDW Coeff of Neena 11.6 Plt Count 219 MPV 9.9 Immature Gran % (Auto) 0.600 Neut % (Auto) 66.0 Lymph % (Auto) 17.9 L [place] % (Auto) 12.6 H Eos % (Auto) 2.6 Baso % (Auto) 0.3 Absolute Neuts (auto) 4.7 Absolute Lymphs (auto) 1.26 Nucleated RBC % 0 Sodium 139 Potassium 4.2 Chloride 106 Carbon Dioxide 27.0 Anion Gap 6 BUN 24 H Creatinine 1.30 Est GFR (MDRD) Af Amer 69 Est GFR (MDRD) Non-Af 57 L BUN/Creatinine Ratio 18.5 Glucose 130 H Calcium 8.9 Troponin I High Sens 23 Radiography Diagnostic Testing: Clinical Impression(s) from Imaging Studies Chest X-Ray 10/09/22 20:10 IMPRESSION: No acute cardiopulmonary disease or interval change. Electronically Signed: Glen Costello DO at 20:26 EDT Reading Location ID and State: [address] [place] [address] Tel [phone], Service support , Discharge Plan Triage Chief Complaint: Dizziness ED Provider: Joaquin Cage Dx/Rx/DC Orders Instructions: ED BPV Vertigo Prescriptions: New meclizine 25 mg tablet 25 mg PO TID PRN (Reason: dizziness) Qty: 20 0RF No Action garlic 400 mg tablet 1,200 mg PO DAILY cholecalciferol (vitamin D3) 25 mcg (1,000 unit) capsule 25 mcg PO DAILY omeprazole 20 mg tablet,delayed release (DR/EC) 20 mg PO DAILY PRN cyanocobalamin (vitamin B-12) 2,500 mcg tablet 5,000 mcg PO DAILY nitroglycerin [Nitrostat] 0.4 mg tablet, sublingual 0.4 mg SUBLINGUAL Q5M PRN (Reason: Cardiac/Chest Pain) Qty: 25 3RF coQ10 (ubiquinol) 100 mg capsule 200 mg PO DAILY (DME) Handicap Parking Placard Qty: 1 0RF Rx Instructions: As directed due to cardiac medical history; Valid from 11/12/2019 to 11/11/2024 lisinopril 10 mg tablet 10 mg PO DAILY Qty: 90 3RF Eliquis 5 mg tablet 5 mg PO BID Qty: 60 11RF Primary Care Provider: Leonarda Smith Referrals: Leonarda Smith DO [Primary Care Provider] - Disposition Disposition: Home, Self Care
[2022-10-09] MEDS: Meclizine HCl 25 MG Tablet PO (21:18)
[2022-10-09 21:19] VITALS: BMI 34.2
--- NOTE | 2022-10-09 21:19 | ED.RN ---
pt denies dizziness now
[2022-10-09 21:20] VITALS: BP 135/72; BP 147/99; BP 159/84; PULSE 64; PULSE 71; PULSE 80
[2022-10-09 21:56] VITALS: BP 133/78
[2022-10-09 22:11] LABS: Reflex Troponin-HS? (from REC) Y
== END 2022-10-09 21:56 | disposition home or self-care (01) ==
PROVIDERS: Emergency Provider Student in an Organized Health Care Education/Training Program; PCP Family Medicine; Visit Provider Student in an Organized Health Care Education/Training Program
DX: H81.10 Benign paroxysmal vertigo, unspecified ear (principal); E78.5 Hyperlipidemia, unspecified; I45.10 Unspecified right bundle-branch block; I10 Essential (primary) hypertension; I25.10 Atherosclerotic heart disease of native coronary artery without angina pectoris; Z79.899 Other long term (current) drug therapy
CPT/HCPCS: 71045; 80048; 84484; 85025; 93005; 99285; A4216

== ENCOUNTER 2023-02-18 08:32 | Observation (INO) | payer OTHER, MEDICARE, SELFPAY ==
[2019-07-15 08:43] VITALS: BMI 32.5
[2023-02-18] VITALS (7 sets, daily range): BP systolic 123–157; BP diastolic 70–88; PULSE 57–98; RESP 16–21; TEMP 36.2–36.9; O2SAT 95–99; BMI 34.0; BMI 33.6
--- NOTE | 2023-02-18 08:53 | ED.VIS.BACK ---
HPI History of Present Illness Chief Complaint: Back Informant: patient Narrative Narrative: Presents with discomfort in his back. Patient's history is a little bit difficult to obtain in terms of details. He has been having discomfort in his back and dyspnea with dyspnea on exertion for several months. The dyspnea may have been going on for a year. He is not really sure. He states in the mornings he feels pretty good. It does sound like he has exertional dyspnea. But is not clear if the back pain that he has in the upper back is exertional. He states when he had a heart attack it was very severe in his back now its not so severe. I was finally able to get from him that it has been worse in the last few days. He has had bypass surgery almost 20 years ago. He has had stents a few times. He and his thinks his last stents are somewhere between 4 and 5 years ago but possibly as long as 8 years ago. It sounds like he saw his private physician for this who recommended he see his commercial litigation associate. He has an appointment with commercial litigation associate on 10 March. It took a lot of questioning to sort out why he came in this morning versus one of the other days. I was able to finally get that he thinks this is worse in the last few days. But nothing happened this morning. He just kind of realize that the symptoms he has now are the same thing he has had with his prior stents and he better get in to be seen sooner than the . Right now, laying in bed, he feels good. Of note, he takes his blood pressure meds. It sounds like he is on a statin. He takes baby aspirin occasionally. He is not on Brilinta or Plavix. [facility] Medical History Atherosclerosis of coronary artery bypass graft of [place] heart without angina pectoris Atrial septal defect Bilateral carotid artery disease Cerebrovascular accident Dyspnea on exertion Essential (primary) hypertension History of left heart catheterization (LHC) (~11/26/19) Hyperlipidemia Ischemic cardiomyopathy Premature ventricular complex SVT (supraventricular tachycardia) Home Medications Handicap Parking Placard #1 ea 11/12/19 [Rx Last Taken Unknown] coQ10 (ubiquinol) 100 mg capsule 200 mg PO DAILY SUPPLEMENT 06/10/22 [History Last Taken 02/18/23] garlic 400 mg tablet 1,200 mg PO DAILY 06/10/22 [History Last Taken 02/18/23] nitroglycerin 0.4 mg sublingual tablet (Nitrostat) 0.4 mg sublingual Q5M PRN Cardiac/Chest Pain #25 tabs 06/10/22 [Rx Last Taken Unknown] lisinopril 10 mg tablet 10 mg PO DAILY #90 tabs 08/18/22 [Rx Last Taken 02/18/23] Allergy/AdvReac Type Severity Reaction Status Date / Time Penicillins [PCN] Allergy Mild Rash Verified 02/18/23 08:32 atorvastatin AdvReac Severe Myalgias Verified 02/18/23 08:32 oxycodone AdvReac Severe Hallucinati Verified 02/18/23 08:32 ons clopidogrel [From Plavix] AdvReac Intermediate Burning Verified 02/18/23 08:32 sensation in arms and chest Family History (Updated 12/08/22 @ 16:03 by Juanito Cope RESISTOR TESTING MACHINE OPERATOR, RESISTOR TESTING MACHINE OPERATOR-C) Mother CAD (coronary artery disease) [place] age 41 Grandfather CAD (coronary artery disease) Brother CAD (coronary artery disease) [place]- Age 63 Brother CAD (coronary artery disease) CABG Brother CAD (coronary artery disease) CABG Surgical History Aortocoronary bypass status (~07/31/03) History of back surgery History of coronary artery stent placement (03/30/19) Social History Smoking Status: Unknown if ever smoked ROS ROS ED ROS Narrative A complete review of systems was performed and is negative except as documented in the history of present illness. Some specific details below. Constitutional: No recent fevers or chills. No malaise. No myalgias. EYE: No discharge, visual complaints, or pain. ENT: No difficulty swallowing. No swelling. No pain. No reflux symptoms. CV: See history of present illness. Respiratory: See history of present illness. GI: No abdominal pain. No nausea vomiting diarrhea. No blood in stool. : No frequency dysuria or hematuria. Musculoskeletal: No recent trauma. No pains. No swelling has developed. Skin: No rash. Nondiaphoretic. Neuro: No weakness or numbness. Endocrine: No polyuria or polydipsia. EXAM Physical Exam Narrative Exam Narrative: CONSTITUTIONAL: Patient is nontoxic in appearance. The patient looks comfortable. Work of breathing looks normal. HEENT: No notable trauma. Mucous membranes moist. No sinus tenderness. No indication of pain with swallowing. EYES: No conjunctival injection. NECK:No JVD. No stridor. CARDIOVASCULAR: Regular rate. Regular rhythm. No notable murmur. No JVD. RESPIRATORY: No respiratory distress. Breathing is unlabored. No wheezes. No rhonchi. No rales. No pain with a deep breath. No chest wall tenderness. Saturations are normal at 96% on room air showing no hypoxia. GASTROINTESTINAL: Not distended. Bowel sounds are normal. No tenderness. No guarding. No rebound. No palpable mass. No bruit is heard. GENITOURINARY: No tenderness over the bladder. No CVA tenderness. MUSCULOSKELETAL: Atraumatic. No peripheral edema. No cord. No tenderness along the deep venous system. No asymmetry. NEUROLOGICAL: Patient is alert and appropriate. No focal deficit noted. SKIN: No noted rashes. No diaphoresis. PSYCHIATRIC: Patient is calm. Mood is appropriate. Const Vital Signs: 02/18/23 08:32 02/18/23 08:49 02/18/23 08:50 Temperature 97.6 F L Temperature Source Temporal Pulse Rate 78 76 Respiratory Rate 21 H 17 Respiratory Effort Normal Respiratory Pattern Normal Blood Pressure 156/76 H 157/88 H Blood Pressure Mean 102 111 Pulse Ox 97 96 Oxygen Delivery Method Room Air Room Air 02/18/23 08:55 Temperature Temperature Source Pulse Rate Respiratory Rate Respiratory Effort Respiratory Pattern Blood Pressure Blood Pressure Mean Pulse Ox Oxygen Delivery Method Room Air [facility] Narrative Medical decision making narrative: Patient CBC is normal. Patient's electrolytes are normal other than minimally elevated BUN. Patient's troponin is normal at 16. My independent interpretation of the patient's single view AP chest shows prior signs of bypass surgery and sternal wires. Mild diaphragm elevation on the right. But no acute trait. Possible borderline cardiomegaly. Final reading is similar and shows no acute process. Patient is rechecked. He is doing well. He has a high heart score. Score of 6. I discussed case with hospitalist. I then also discussed with the patient. We will not be able to do further significant testing, stress test, cath until Monday. He is willing to stay here for the weekend. His are concerned. His is now here. She states she has noticed a significant difference in his ability to exert himself or do any activity just recently. Although the symptoms have been going on a while he does have an acute exacerbation component. Lab Data Attestation: I reviewed the patient's lab results. Labs: Laboratory Results - last 24 hr 02/18/23 08:58 WBC 8.3 RBC 4.06 L Hgb 13.7 Hct 42.9 MCV 105.7 H MCH 33.7 H MCHC 31.9 L RDW Std Deviation 46.5 H RDW Coeff of Neena 11.8 Plt Count 268 MPV 10.1 Immature Gran % (Auto) 0.800 Neut % (Auto) 71.5 H Lymph % (Auto) 13.3 L [place] % (Auto) 12.6 H Eos % (Auto) 1.3 Baso % (Auto) 0.5 Absolute Neuts (auto) 5.9 Absolute Lymphs (auto) 1.10 Nucleated RBC % 0 Sodium 137 Potassium 4.3 Chloride 105 Carbon Dioxide 28.0 Anion Gap 4 L BUN 19 H Creatinine 1.28 Estim Creat Clear Calc 46.02 Est GFR (MDRD) Af Amer 70 Est GFR (MDRD) Non-Af 58 L BUN/Creatinine Ratio 14.8 Glucose 116 H Calcium 8.9 Troponin I High Sens 16 Radiography Diagnostic Testing: Clinical Impression(s) from Imaging Studies Chest X-Ray 02/18/23 09:22 IMPRESSION: Degenerative changes, as described above. No demonstrated acute cardiopulmonary process. Electronically Signed: Nicolas Bates MD at 9:36 EDT , EKG Initial EKG: Comments: My independent interpretation of the patient's EKG shows sinus rhythm with PACs and compensatory pauses. There is an occasional PVC. There is a right bundle branch block pattern. There are secondary ST and T wave changes but no indication of acute infarct or ischemia. NC interval is normal. QRS duration is long. QTc looks normal. The EKG is similar to a prior I pulled up from 09 Oct 2022. Discharge Plan Triage Chief Complaint: Back ED Provider: Joey Limon Dx/Rx/DC Orders Clinical Impression: HERMAN (dyspnea on exertion), History of coronary artery disease, Chest pain Primary Care Provider: Leonarda Smith Disposition Disposition: Acute Care Hospital [facility]
[2023-02-18 09:08] LABS: Absolute Neutrophil Count 5.9 X10^3/uL (2.0-7.7); Basophil# 0.04 X10^3/uL; Basophil% 0.5 % (0-1); Eosinophil# 0.11 X10^3/uL; Eosinophils% 1.3 % (0-5); Hematocrit 42.9 % (40-54); Hemoglobin 13.7 g/dL (13.0-16.5); Lymphocyte % 13.3 % (19-41); Mean Corp Hgb Conc 31.9 g/dL (32-36); Mean Corpuscular Hgb 33.7 pg (27.0-32.0); Mean Corpuscular Volume 105.7 fL (80-94); Mean Platelet Vol. 10.1 fl (6.2-12.0); Monocyte# 1.04 X10^3/uL; Monocyte% 12.6 % (0-10); NRBC Flagged by Analyzer 0 % (0-5); Neutrophil # 5.89 X10^3/uL (2.7-7.7); Neutrophil % 71.5 % (47-70); Platelet Count 268 K/mm3 (150-450); RBC Distribution Width CV 11.8 % (11.6-14.6); RBC Distribution Width SD 46.5 fl (35.1-43.9); Red Blood Count 4.06 M/mm3 (4.6-6.2); White Blood Count 8.3 K/mm3 (4.4-11.0)
[2023-02-18] MEDS: Aspirin 81 MG TAB.CHEW 324 MG PO (09:19)
--- NOTE | 2023-02-18 09:22 | RAD_ITS ---
STUDY: X-RAY CHEST REASON FOR EXAM: Male, 77 years old. chest pain TECHNIQUE: Single AP portable view of the chest. COMPARISON: October 09, 2022 FINDINGS: No demonstrated consolidation. There are interstitial fibrotic changes of the lungs. There is no demonstrated pleural abnormality. Sternal cerclage wires and vascular clips are present from a prior sternotomy and coronary artery bypass graft procedure (CABG). Mild cardiomegaly. Normal mediastinum and saulo. Normal visualized pulmonary arteries. Normal visualized aortic arch and descending thoracic aorta. There are diffuse degenerative changes of the visualized thoracic spine. Normal visualized ribs, clavicles, and shoulders. There is no demonstrated abnormality of the visualized soft tissue structures of the upper abdomen. RAD/Chest 1 View (Portable) IMPRESSION: Degenerative changes, as described above. No demonstrated acute cardiopulmonary process. Electronically Signed: Nicolas Bates MD at 9:36 EDT ,
[2023-02-18 09:53] LABS: Anion Gap 4 (5-15); BUN 19 mg/dL (7-18); BUN/Creat Ratio 14.8 RATIO (10-20); Calcium,Total 8.9 mg/dL (8.5-10.1); Chloride 105 mmol/L (98-107); Creatinine, Serum 1.28 mg/dL (0.70-1.30); EST Glomerular Filtration Rate 58 mL/min (>60); Est Glom Filt Rate - Afr Amer 70 mL/min (>60); Estimated Creatinine Clearance 46.02 ml/min; Glucose 116 mg/dL (74-106); Potassium 4.3 mmol/L (3.5-5.1); Sodium Level 137 mmol/L (136-145); Troponin-I HS (w/2H Reflex) 16 pg/mL (3.0-78.0)
[2023-02-18 11:02] LABS: Reflex Troponin-HS? (from REC) Y
[2023-02-18 11:37] LABS: Troponin-I HS 16 pg/mL (3.0-78.0)
[2023-02-18 15:25] LABS: Troponin-I HS 19 pg/mL (3.0-78.0)
--- NOTE | 2023-02-18 16:10 | CASEMGMT ---
LESLEY CM in to complete RUDOLPH Form with patient. LESLEY MARIA explained RUDOLPH Form to patient, patient voiced understanding. Patient signed RUDOLPH form and filed in chart. Patient provided copy of signed RUDOLPH Form. Patient had no further questions or concerns.
--- NOTE | 2023-02-18 16:13 | PCM.HP.STD ---
HPI - General General Date of Admission: 02/18/23 HPI Narrative NICOLLE TREADWELL, is a 77 M who presents to the hospital with back pain which is consistent with what he had with his previous heart attacks, he states that he never had chest pain before with his prior heart attacks where he had a CABG about 20 years ago and stents a few years ago. He presents today because it appears to have gotten a little bit worse as has his shortness of breath. They were hoping to hold out until he could see the nitriles lab technician but they realize that that appointment was over 20 days away and so he and his decided to come into the hospital today. Initial troponin was normal at 16 and second troponin was only 19. He does have some shortness of breath with activity which has been getting worse over the last year or so but no lightheadedness or dizziness. [facility] Medical History Atherosclerosis of coronary artery bypass graft of [place] heart without angina pectoris Atrial septal defect Bilateral carotid artery disease Cerebrovascular accident Dyspnea on exertion Essential (primary) hypertension History of left heart catheterization (LHC) (~11/26/19) Hyperlipidemia Ischemic cardiomyopathy Premature ventricular complex SVT (supraventricular tachycardia) Home Medications Handicap Parking Placard #1 ea 11/12/19 [Rx Last Taken Unknown] coQ10 (ubiquinol) 100 mg capsule 200 mg PO DAILY SUPPLEMENT 06/10/22 [History Last Taken 02/18/23] garlic 400 mg tablet 1,200 mg PO DAILY 06/10/22 [History Last Taken 02/18/23] nitroglycerin 0.4 mg sublingual tablet (Nitrostat) 0.4 mg sublingual Q5M PRN Cardiac/Chest Pain #25 tabs 06/10/22 [Rx Last Taken Unknown] lisinopril 10 mg tablet 10 mg PO DAILY #90 tabs 08/18/22 [Rx Last Taken 02/18/23] Allergy/AdvReac Type Severity Reaction Status Date / Time Penicillins [PCN] Allergy Mild Rash Verified 02/18/23 08:32 atorvastatin AdvReac Severe Myalgias Verified 02/18/23 08:32 oxycodone AdvReac Severe Hallucinati Verified 02/18/23 08:32 ons clopidogrel [From Plavix] AdvReac Intermediate Burning Verified 02/18/23 08:32 sensation in arms and chest Family History Mother CAD (coronary artery disease) Deadly [place]- age 41 Grandfather CAD (coronary artery disease) Brother CAD (coronary artery disease) Deadly [place]- Age 63 Brother CAD (coronary artery disease) CABG Brother CAD (coronary artery disease) CABG Surgical History Aortocoronary bypass status (~07/31/03) History of back surgery History of coronary artery stent placement (03/30/19) Social History Smoking Status: Never smoker ROS Constitutional Constitutional: Denies chills, fatigue, fever(s) or malaise Eyes Eyes: Denies blurry vision ENT HEENT: Denies headache(s) or nasal discharge Cardiovascular Cardiovascular: Reports dyspnea on exertion; Denies chest pain, lightheadedness or syncope Respiratory/Chest Respiratory/Chest: Denies cough, shortness of breath at rest or shortness of breath with exertion Gastrointestinal Gastrointestinal: Denies constipation, diarrhea, nausea or vomiting Genitourinary Genitourinary: Denies dysuria Musculoskeletal Musculoskeletal: Reports back pain Neurologic Neurologic: Denies focal weakness, numbness or tremor(s) Psychiatric Psychiatric: Denies anxiety or depression Vital Signs Vital Signs Vital Signs: 02/18/23 08:32 02/18/23 08:49 02/18/23 08:50 Temperature 97.6 F L Temperature Source Temporal Pulse Rate 78 76 Respiratory Rate 21 H 17 Respiratory Effort Normal Respiratory Depth Respiratory Pattern Normal Blood Pressure 156/76 H 157/88 H Blood Pressure Mean 102 111 Blood Pressure Source Blood Pressure Position Blood Pressure Location Pulse Ox 97 96 Oxygen Delivery Method Room Air Room Air 02/18/23 08:55 02/18/23 11:31 02/18/23 11:36 Temperature 97.2 F L Temperature Source Temporal Pulse Rate 57 L 57 L Respiratory Rate 16 16 Respiratory Effort Respiratory Depth Respiratory Pattern Blood Pressure 131/71 H 131/71 H Blood Pressure Mean 91 91 Blood Pressure Source Blood Pressure Position Blood Pressure Location Pulse Ox 95 95 Oxygen Delivery Method Room Air Room Air Room Air 02/18/23 11:59 02/18/23 14:00 Temperature 98.0 F Temperature Source Temporal Pulse Rate 61 Respiratory Rate 16 Respiratory Effort Normal Respiratory Depth Normal Respiratory Pattern Normal Blood Pressure 140/76 H Blood Pressure Mean 97 Blood Pressure Source Monitor Blood Pressure Position Semi-Fowlers Blood Pressure Location Right Arm Pulse Ox 99 Oxygen Delivery Method Room Air Room Air Weight Weight: 221 lb 1.978 oz Body Mass Index (BMI) 33.6 Physical Exam Narrative General: Alert, Oriented x3, Cooperative, No apparent distress HEENT: Atraumatic, PERRLA, EOMI, Normocephalic Oral: Moist Mucosa Neck: Supple, No JVD Lungs: Clear to auscultation, Normal air movement, No rhonchi, No wheeze, No rales Cardiovascular: Regular rate, Regular Rhythm, Normal S1, Normal S2, No murmurs Abdomen: Soft, Non Tender, Non-Distended, No Hepato-splenomegaly Extremities: No edema, Capillary Refill Less than 3 Seconds Skin: No rashes, No breakdown Musculoskeletal: No Tenderness to Palpation of Joints or Extremities Neurological: Cranial nerves II-XII grossly intact, Motor Exam 5/5 strength throughout, Sensory exam intact to light touch and pain Psych/Mental Status: Normal Affect, Appropriate Results Lab / Micro Data 02/18/23 08:58 02/18/23 08:58 Labs: Laboratory Results - last 24 hr 02/18/23 08:58: WBC 8.3, RBC 4.06 L, Hgb 13.7, Hct 42.9, MCV 105.7 H, MCH 33.7 H, MCHC 31.9 L, RDW Std Deviation 46.5 H, RDW Coeff of Neena 11.8, Plt Count 268, MPV 10.1, Immature Gran % (Auto) 0.800, Neut % (Auto) 71.5 H, Lymph % (Auto) 13.3 L, [place] % (Auto) 12.6 H, Eos % (Auto) 1.3, Baso % (Auto) 0.5, Absolute Neuts (auto) 5.9, Absolute Lymphs (auto) 1.10, Nucleated RBC % 0, Sodium 137, Potassium 4.3, Chloride 105, Carbon Dioxide 28.0, Anion Gap 4 L, BUN 19 H, Creatinine 1.28, Estim Creat Clear Calc 46.02, Est GFR (MDRD) Af Amer 70, Est GFR (MDRD) Non-Af 58 L, BUN/Creatinine Ratio 14.8, Glucose 116 H, Calcium 8.9, Troponin I High Sens 16 02/18/23 11:10: Troponin I High Sens 16 02/18/23 14:52: Troponin I High Sens 19 Radiology Impression Chest X-Ray 02/18/23 09:22 IMPRESSION: Degenerative changes, as described above. No demonstrated acute cardiopulmonary process. Electronically Signed: Nicolas Bates MD at 9:36 EDT Reading Location ID and State: [facility] / [place] , Service support , Assessment & Plan Assessment/Plan (1) Chest pain: PLAN: Plan 1. Angina with dyspnea on exertion/CAD status post CABG and/HTN/HLD ? She had a CABG in 2004 and stent in 2018 he is not on Vicks because it causes a burning sensation in his arms and chest and he is not on Lipitor because of myalgias ? We will obtain serial troponins ? Plan for possible stress test on Monday ? Continue lisinopril ? We will start him on aspirin, though per his nitriles lab technician's note he states that aspirin caused him a brain fog DVT: Ambulate 75 minutes was spent on direct patient care, including documentation as well as chart review and collaboration with colleagues Charges/Coding Visit Charges Inpatient E&M: 81560 Init Hosp L3
[2023-02-18] MEDS: Mag Hydrox/Al Hydrox/Simeth 30 ML UDC PO (20:04)
[2023-02-19 03:43] VITALS: BP 120/83; PULSE 68; RESP 15; TEMP 36.6; O2SAT 95
[2023-02-19] MEDS: Acetaminophen 325 MG Tablet 650 MG PO (04:48)
[2023-02-19 06:07] LABS: Absolute Lymphocyte Count 1.22 X10^3/uL (0.83-4.51); Absolute Neutrophil Count 6.2 X10^3/uL (2.0-7.7); Basophil# 0.03 X10^3/uL; Basophil% 0.3 % (0-1); Eosinophil# 0.16 X10^3/uL; Eosinophils% 1.8 % (0-5); Hematocrit 40.9 % (40-54); Hemoglobin 13.1 g/dL (13.0-16.5); Lymphocyte # 1.22 X10^3/ul (0.83-4.51); Mean Corpuscular Hgb 33.9 pg (27.0-32.0); Mean Corpuscular Volume 105.7 fL (80-94); Mean Platelet Vol. 10.3 fl (6.2-12.0); Monocyte# 1.05 X10^3/uL; Monocyte% 12.1 % (0-10); NRBC Flagged by Analyzer 0 % (0-5); Neutrophil # 6.18 X10^3/uL (2.7-7.7); Neutrophil % 71.1 % (47-70); Platelet Count 247 K/mm3 (150-450); RBC Distribution Width CV 11.9 % (11.6-14.6); RBC Distribution Width SD 46.9 fl (35.1-43.9); Red Blood Count 3.87 M/mm3 (4.6-6.2); White Blood Count 8.7 K/mm3 (4.4-11.0)
[2023-02-19 06:57] LABS: Anion Gap 3 (5-15); BUN 16 mg/dL (7-18); BUN/Creat Ratio 14.5 RATIO (10-20); Calcium,Total 8.5 mg/dL (8.5-10.1); Chloride 107 mmol/L (98-107); EST Glomerular Filtration Rate 69 mL/min (>60); Est Glom Filt Rate - Afr Amer 83 mL/min (>60); Estimated Creatinine Clearance 53.55 ml/min; Glucose 104 mg/dL (74-106); Potassium 4.4 mmol/L (3.5-5.1); Sodium Level 138 mmol/L (136-145)
[2023-02-19 09:11] VITALS: BP 127/72; PULSE 69; RESP 14; TEMP 37.1; O2SAT 98
[2023-02-19] MEDS: Aspirin 81 MG TAB.CHEW PO (09:13)
[2023-02-19] MEDS: Lisinopril 10 MG Tablet PO (09:13)
--- NOTE | 2023-02-19 09:20 | PCM.PN.HOSP ---
Subjective Subjective Doing well, no issues overnight Objective Data Objective Data Vital Signs: Vital Signs Temp Pulse Resp BP Pulse Ox O2 Del Method 98.7 F 69 14 127/72 H 98 Room Air 02/19/23 09:11 02/19/23 09:11 02/19/23 09:11 02/19/23 09:11 02/19/23 09:11 02/19/23 09:16 Oxygen Delivery Method Room Air Weight: 221 lb 1.978 oz Body Mass Index (BMI) 33.6 Intake & Output: Intake and Output for Last 24 Hours 02/18/23 02/19/23 02/20/23 03:59 03:59 03:59 Intake Total 400 / 400 200 / 200 Output Total 0 / 0 Balance 400 / 400 200 / 200 Lab / Micro Data 02/19/23 05:25 02/19/23 05:25 Labs: Laboratory Results - last 24 hr 02/18/23 08:58: Sodium 137, Potassium 4.3, Chloride 105, Carbon Dioxide 28.0, Anion Gap 4 L, BUN 19 H, Creatinine 1.28, Estim Creat Clear Calc 46.02, Est GFR (MDRD) Af Amer 70, Est GFR (MDRD) Non-Af 58 L, BUN/Creatinine Ratio 14.8, Glucose 116 H, Calcium 8.9, Troponin I High Sens 16 02/18/23 11:10: Troponin I High Sens 16 02/18/23 14:52: Troponin I High Sens 19 02/19/23 05:25: WBC 8.7, RBC 3.87 L, Hgb 13.1, Hct 40.9, MCV 105.7 H, MCH 33.9 H, MCHC 32.0, RDW Std Deviation 46.9 H, RDW Coeff of Neena 11.9, Plt Count 247, MPV 10.3, Immature Gran % (Auto) 0.700, Neut % (Auto) 71.1 H, Lymph % (Auto) 14.0 L, [place] % (Auto) 12.1 H, Eos % (Auto) 1.8, Baso % (Auto) 0.3, Absolute Neuts (auto) 6.2, Absolute Lymphs (auto) 1.22, Nucleated RBC % 0, Sodium 138, Potassium 4.4, Chloride 107, Carbon Dioxide 28.0, Anion Gap 3 L, BUN 16, Creatinine 1.10, Estim Creat Clear Calc 53.55, Est GFR (MDRD) Af Amer 83, Est GFR (MDRD) Non-Af 69, BUN/Creatinine Ratio 14.5, Glucose 104, Calcium 8.5 Radiography Diagnostic Testing: Radiology Impression Chest X-Ray 02/18/23 09:22 IMPRESSION: Degenerative changes, as described above. No demonstrated acute cardiopulmonary process. Electronically Signed: Nicolas Bates MD at 9:36 EDT Reading Location ID and State: [facility] / [place] , Service support , Physical Exam Narrative General: Alert, Oriented x3, Cooperative, No apparent distress HEENT: Atraumatic, PERRLA, EOMI, Normocephalic Oral: Moist Mucosa Neck: Supple, No JVD Lungs: Clear to auscultation, Normal air movement, No rhonchi, No wheeze, No rales Cardiovascular: Regular rate, Regular Rhythm, Normal S1, Normal S2, No murmurs Abdomen: Soft, Non Tender, Non-Distended, No Hepato-splenomegaly Extremities: No edema, Capillary Refill Less than 3 Seconds Skin: No rashes, No breakdown Musculoskeletal: No Tenderness to Palpation of Joints or Extremities Neurological: Cranial nerves II-XII grossly intact, Motor Exam 5/5 strength throughout, Sensory exam intact to light touch and pain Psych/Mental Status: Normal Affect, Appropriate Assessment & Plan Assessment/Plan (1) Chest pain: PLAN: Plan 1. Angina with dyspnea on exertion/CAD status post CABG and/HTN/HLD ? She had a CABG in 2004 and stent in 2019 he is not on Vicks because it causes a burning sensation in his arms and chest and he is not on Lipitor because of myalgias ? We will obtain serial troponins ? Plan for possible stress test on Monday, he asked about a possible heart cath however I told him given his allergies to Plavix and his the feeling that he gets of the brain follow-up with aspirin, that I would prefer to start with a stress test to see if a heart catheter is even warranted given that we would have to have a discussion of the side effects if he were to have a stent ? Continue lisinopril ? We will start him on aspirin DVT: Ambulate Charges/Coding Visit Charges Inpatient E&M: 67388 Subs Hosp L2
[2023-02-19 14:12] VITALS: BP 108/68; PULSE 69; RESP 14; TEMP 37.1; O2SAT 97
[2023-02-19] MEDS: Mag Hydrox/Al Hydrox/Simeth 30 ML UDC PO (17:52)
[2023-02-19 20:25] VITALS: BP 127/80; PULSE 78; RESP 15; TEMP 36.7; O2SAT 95
[2023-02-20] MEDS: 0.9% Saline Lock 10 ML Syringe IV (00:35)
[2023-02-20 01:48] VITALS: BP 105/75; PULSE 76; RESP 15; TEMP 36.8; O2SAT 94
--- NOTE | 2023-02-20 05:55 | EKG12_ITS ---
Test Reason : AM EKG Blood Pressure : / mmHG Vent. Rate : 066 BPM Atrial Rate : 066 BPM P-R Int : 234 ms QRS Dur : 150 ms QT Int : 426 ms P-R-T Axes : 012 -30 044 degrees QTc Int : 446 ms Sinus rhythm with 1st degree A-V block Left axis deviation Right bundle branch block Abnormal ECG When compared with ECG of 18-FEB-2023 08:40, MANUAL COMPARISON REQUIRED, DATA IS UNCONFIRMED Confirmed by DEENA OKEEFE, ROSEMARY ([id number]), food editor ROSI TREVIZO ([id number]) on 03/16/2023 1:48:15 PM Referred By: Confirmed By:ROSEMARY SHAFFER MD
[2023-02-20 06:46] VITALS: BP 132/73; PULSE 88; RESP 15; TEMP 37; O2SAT 97
[2023-02-20] MEDS: Lisinopril 10 MG Tablet PO (06:49)
[2023-02-20] MEDS: Aspirin 81 MG TAB.CHEW PO (06:49)
--- NOTE | 2023-02-20 11:51 | STRESSREP ---
Stress Test Report Pharmacologic myocardial perfusion stress test. 77-year-old man with a history of shortness of breath and previous coronary artery bypass surgery Resting EKG demonstrates sinus rhythm with a right bundle branch block with a rate of 70 bpm. Resting blood pressure is 126/78 mmHg. 0.4 mg of regadenoson was infused per usual protocol followed by rapid intravenous saline flush injection. Continuous EKG monitoring was performed. The maximum heart rate was 101 bpm which was 71% of max impacted heart rate the maximum workload was 1 metabolic equivalent. At rest there were no ST or T wave changes noted to suggest ischemia and at peak infusion nonspecific ST changes were noted which did not meet the criteria for ischemia. No clinical angina is noted. The final blood pressure was 122/86 mmHg. Myocardial perfusion protocol. 14.1 mCi of technetium 99m sestamibi was injected at rest. 0.4 mg of regadenoson was infused per usual protocol. At peak infusion 45.1 mCi of technetium 99m sestamibi was injected stress images were obtained stress and rest images were reconstructed and compared in the short axis vertical long and horizontal long axis. Gated images were also obtained. Perfusion SPECT analysis: Review of the stress images demonstrate normal uptake of tracer noted in all areas of the myocardium except for a moderate size zone in the mid anterior wall suggestive of previous anterior infarct. The resting images similar demonstrated normal uptake of tracer noted in all areas of the myocardium with improvement in the periphery of the mid anterior defect suggestive of a previous anterior infarct with mild forest-infarct ischemia. Gated SPECT analysis: The gated ejection fraction is 32%. Conclusion: Mildly abnormal pharmacologic myocardial perfusion stress test. Previous anterior infarct with mild forest-infarct ischemia present Reduced ejection fraction.
--- NOTE | 2023-02-20 13:46 | PCM.DC ---
Discharge Instructions Diet Discharge Diet: Low fat / Low cholesterol Activity Discharge Activity: Return to Normal Activity Dressing / Incision Call your doctor if you observe: Fever of 101 or Higher, Shortness of breath, Dizziness, Fainting spells, Swelling in the ankles, Chest pain and Increased palpitations (irregular heartbeat) Follow Up Care Test Results: Test results from this visit will be discussed in further detail at your follow-up appointment, if applicable. Discharge Plan Admission Admit Date/Time: 02/18/23 13:59 Attending Provider: Bobby Glynn Primary Care Provider: Leonarda Smith Instructions Additional Instructions / Restrictions: Follow-up with your PCP in 3 to 5 days to monitor your renal function as you were started on Lasix which can affect kidney function. Follow-up with your geropsychologist at your previously scheduled appointment on March 10. Discharge Orders/Prescriptions Prescriptions: New aspirin 81 mg Tablet,Chewable 81 mg PO BREAKFAST 30 Days Qty: 30 0RF furosemide [Lasix] 20 mg tablet 20 mg PO DAILY Qty: 30 0RF Continued garlic 400 mg tablet 1,200 mg PO DAILY nitroglycerin [Nitrostat] 0.4 mg tablet, sublingual 0.4 mg SUBLINGUAL Q5M PRN (Reason: Cardiac/Chest Pain) Qty: 25 3RF coQ10 (ubiquinol) 100 mg capsule 200 mg PO DAILY (DME) Handicap Parking Placard Qty: 1 0RF Rx Instructions: As directed due to cardiac medical history; Valid from 11/12/2019 to 11/11/2024 lisinopril 10 mg tablet 10 mg PO DAILY Qty: 90 3RF Referrals / Follow Up: Leonarda Smith DO [Primary Care Provider] - Within 1 Week Disposition Disposition (needs filled in before D/C Order can be placed): Home, Self Care
[2023-02-20 13:48] VITALS: BP 134/84; PULSE 83; RESP 16; TEMP 36.5; O2SAT 96
--- NOTE | 2023-02-20 13:49 | DS.PCM_ITS ---
Providers Date of Admission: 02/18/23 Primary Care Physician: Dr. Leonarda Smith, DO Reason For Visit: CHEST PRESSURE Diagnosis Discharge Diagnosis (1) Chest pain: Status: Acute Code(s): R07.9 - Chest pain, unspecified Plan 1. Angina with dyspnea on exertion/CAD status post CABG and/HTN/HLD ? She had a CABG in 2003 and stent in 2018 he is not on Vicks because it causes a burning sensation in his arms and chest and he is not on Lipitor because of myalgias ? We will obtain serial troponins ? Plan for possible stress test on Monday, he asked about a possible heart cath however I told him given his allergies to Plavix and his the feeling that he gets of the brain follow-up with aspirin, that I would prefer to start with a stress test to see if a heart catheter is even warranted given that we would have to have a discussion of the side effects if he were to have a stent ? Continue lisinopril ? We will start him on aspirin DVT: Ambulate Medications at Discharge Home Medications Handicap Parking Placard #1 ea 11/12/19 coQ10 (ubiquinol) 100 mg capsule 200 mg PO DAILY SUPPLEMENT 06/10/22 garlic 400 mg tablet 1,200 mg PO DAILY 06/10/22 nitroglycerin 0.4 mg sublingual tablet (Nitrostat) 0.4 mg sublingual Q5M PRN Cardiac/Chest Pain #25 tabs 06/10/22 lisinopril 10 mg tablet 10 mg PO DAILY #90 tabs 08/18/22 aspirin 81 mg chewable tablet 81 mg PO BREAKFAST 30 days #30 tabs 02/20/23 furosemide 20 mg tablet (Lasix) 20 mg PO DAILY #30 tabs 02/20/23 Hospital Course Operations None Procedures Nuclear stress test Summary of Care Provided Minutes Spent on Discharge: 33 Hospital Course: Per HPI: NICOLLE TREADWELL, is a 77 M who presents to the hospital with back pain which is consistent with what he had with his previous heart attacks, he states that he never had chest pain before with his prior heart attacks where he had a CABG about 20 years ago and stents a few years ago. He presents today because it appears to have gotten a little bit worse as has his shortness of breath. They were hoping to hold out until he could see the electrical accessories i assembler but they realize that that appointment was over 20 days away and so he and his decided to come into the hospital today. Initial troponin was normal at 16 and second troponin was only 19. He does have some shortness of breath with activity which has been getting worse over the last year or so but no li ghtheadedness or dizziness. Hospital Course: 1. Angina with dyspnea on exertion/CAD status post CABG and stents/HTN/HLD? 77-year-old male presented to the hospital with increasing shortness of breath and periodic chest pain. He states that this is all been going on for about a year but had recently gotten worse. He made a new cardiology appointment as his old electrical accessories i assembler has left the area but that was not cannot happen until March 10 so he and his decided to come into the hospital to be evaluated. Initial troponins were negative x2 and EKG was unremarkable. He did have a stress test which does show a reduced EF though on stress test this is not very sensitive and his previous echo from July 2021 has an EF of 45 to 50%. Stress test does show areas of poor uptake in the area of his previous anterior infarct but no new areas of ischemia. I discussed the results of the stress test with him and he is feeling much better today. I do think that he would benefit from possible gentle diuresis so I will discharge him on Lasix 20 mg p.o. daily and have him follow-up with his PCP in 3 to 5 days to monitor his renal function. I do recommend that he keep his cardiology appointment at the end of the month. Of note he does have multiple allergies however he is willing to deal with the brain fog he gets with aspirin in the meantime. I discussed with him and his the plan for discharge today he expressed understanding of the risk benefits of going home and are okay with going home today. Physical Exam Narrative General: Alert, Oriented x3, Cooperative, No apparent distress HEENT: Atraumatic, PERRLA, EOMI, Normocephalic Oral: Moist Mucosa Neck: Supple, No JVD Lungs: Clear to auscultation, Normal air movement, No rhonchi, No wheeze, No rales Cardiovascular: Regular rate, Regular Rhythm, Normal S1, Normal S2, No murmurs Abdomen: Soft, Non Tender, Non-Distended, No Hepato-splenomegaly Extremities: No edema, Capillary Refill Less than 3 Seconds Skin: No rashes, No breakdown Musculoskeletal: No Tenderness to Palpation of Joints or Extremities Neurological: Cranial nerves II-XII grossly intact, Motor Exam 5/5 strength throughout, Sensory exam intact to light touch and pain Psych/Mental Status: Normal Affect, Appropriate Weight / BMI Weight Weight: 221 lb 1.978 oz Body Mass Index (BMI) 33.6 ABG / Lab / Microbiology Data 02/19/23 05:25 02/19/23 05:25 D/C Instructions Discharge Diet: Low fat / Low cholesterol Call your doctor if you observe: Fever of 101 or Higher, Shortness of breath, Dizziness, Fainting spells, Swelling in the ankles, Chest pain and Increased palpitations (irregular heartbeat) Meaningful Use Info Meaningful Use Diagnoses (Choose all that apply): None applicable Discharge Plan Admission Admit Date/Time: 02/18/23 13:59 Attending Provider: Bobby Glynn Primary Care Provider: Leonarda Smith Instructions Additional Instructions / Restrictions: Follow-up with your PCP in 3 to 5 days to monitor your renal function as you were started on Lasix which can affect kidney function. Follow-up with your electrical accessories i assembler at your previously scheduled appointment on March 10. Discharge Orders/Prescriptions Prescriptions: New aspirin 81 mg Tablet,Chewable 81 mg PO BREAKFAST 30 Days Qty: 30 0RF furosemide [Lasix] 20 mg tablet 20 mg PO DAILY Qty: 30 0RF Continued garlic 400 mg tablet 1,200 mg PO DAILY nitroglycerin [Nitrostat] 0.4 mg tablet, sublingual 0.4 mg SUBLINGUAL Q5M PRN (Reason: Cardiac/Chest Pain) Qty: 25 3RF coQ10 (ubiquinol) 100 mg capsule 200 mg PO DAILY (DME) Handicap Parking Placard Qty: 1 0RF Rx Instructions: As directed due to cardiac medical history; Valid from 11/12/2019 to 11/11/2024 lisinopril 10 mg tablet 10 mg PO DAILY Qty: 90 3RF Referrals / Follow Up: Leonarda Smith DO [Primary Care Provider] - Within 1 Week Disposition Disposition (needs filled in before D/C Order can be placed): Home, Self Care Charges/Coding Visit Charges Inpatient E&M: 75058 Disch Hosp >30min
--- NOTE | 2023-02-20 13:58 | CASEMGMT ---
RN CM: This RN CM met with pt with family at bedside. Pt states he is independent at baseline and denies any discharge needs at this time. Educated pt and family on obtaining copies of pt's stress test/medical records per their request. DC Plan: home with family support. Marialuisa Russell RN CM
--- NOTE | 2023-02-20 14:53 | CHAPLAIN ---
Type of Pastoral Visit _x__ Initial Visit ___ Follow-up Visit ___ On-call Visit ___ General Patient Visit ___ Spiritual Assessment ___ Family Conference ___ Bereavement ___ Rapid Response ___ Code Blue ___ Other (describe below) Pastoral Care Referral From _x__ Patient ___ Family ___ Nurse ___ Physician ___ Biomedical Engineering Aide ___ Sleep Technologist ___ Other (describe below) Sacrament/Intervention _x__ Active listening ___ Anointing ___ Roman Catholic ___ Bereavement ___ Communion _x__ Shefali exploration ___ ___ Life review _x__ Prayer ___ Reconciliation ___ Sacrament of Sick _x__ Supportive presence ___ Wedding ___ Other (describe below) Pastoral Comments met with patient and family; patient is clear about his shefali and trust in God; presence and prayers given for support
== END 2023-02-20 13:48 | disposition home or self-care (01) ==
LOC: ED 09:22 → PCU 11:17
PROVIDERS: Admitting Provider Family Medicine; Emergency Provider Emergency Medicine; PCP Family Medicine; Visit Provider Family Medicine
DX: R07.89 Other chest pain (principal); R06.02 Shortness of breath; I25.10 Atherosclerotic heart disease of native coronary artery without angina pectoris; E78.5 Hyperlipidemia, unspecified; I25.5 Ischemic cardiomyopathy; I10 Essential (primary) hypertension; I25.2 Old myocardial infarction; Z79.899 Other long term (current) drug therapy
CPT/HCPCS: 36415; 71045; 78452; 80048; 84484; 85025; 93005; 93017; 99221; 99285; A9500; A4216; G0378; J2785

== ENCOUNTER → 2023-03-08 | Outpatient (CLI) | payer OTHER, MEDICARE, SELFPAY ==
[2019-07-15 08:43] VITALS: BMI 32.5
[2023-03-08 08:32] LABS: AST(SGOT) 21 U/L (15-37); Alanine Aminotransfer ALT/SGPT 27 U/L (16-61); Albumin, Serum 3.5 g/dL (3.2-5.0); Alkaline Phosphatase 79 U/L (45-117); Anion Gap 3 (5-15); BUN 23 mg/dL (7-18); BUN/Creat Ratio 18.3 RATIO (10-20); Bilirubin, Direct 0.15 mg/dL (0.00-0.30); Calcium,Total 9.1 mg/dL (8.5-10.1); Chloride 105 mmol/L (98-107); Cholesterol 175 mg/dL (200); Creatinine, Serum 1.26 mg/dL (0.70-1.30); EST Glomerular Filtration Rate 59 mL/min (>60); Est Glom Filt Rate - Afr Amer 71 mL/min (>60); Globulin 3.8 g/dL (2.2-4.2); Glucose 106 mg/dL (74-106); High Density Lipoprotein 44 mg/dL; Potassium 4.7 mmol/L (3.5-5.1); Protein, Total 7.3 g/dL (6.4-8.2); Sodium Level 138 mmol/L (136-145); Triglycerides 86 mg/dL; Very Low Density Lipoprotein 17 mg/dL (5-40)
== END | disposition home or self-care (01) ==
LOC: LAB 07:39
PROVIDERS: PCP Family Medicine; Referring Provider Nurse Practitioner Family; Visit Provider Nurse Practitioner Family
DX: R06.09 Other forms of dyspnea (principal); I25.5 Ischemic cardiomyopathy; Z51.81 Encounter for therapeutic drug level monitoring; Z79.899 Other long term (current) drug therapy; E78.00 Pure hypercholesterolemia, unspecified
CPT/HCPCS: 36415; 80048; 80061; 80076